=== PATIENT | female | born 1935 | race Caucasian/White ===

== ENCOUNTER 2016-06-16 14:04 | Emergency (ER) | payer MEDICARE ==
[2016-06-16] MEDS ORDERED: SODIUM CHLORIDE 0.9% 1,000 ML IV STA (15:02)
--- NOTE | 2016-06-16 15:07 | ED ---
General Adult HPI - General Chief complaint: Altered Mental Status Stated complaint: Confusion Time Seen by Provider: 06/16/16 14:45 Source: patient, RN notes reviewed Mode of arrival: wheelchair Limitations: no limitations - History of Present Illness Initial comments: Patient is a pleasant 80-year-old female presenting to the emergency department complaining of confusion. Onset was prior to arrival. Symptoms have somewhat improved. Patient was somewhat confused following a . Patient found herself walking around in the rain when she knew she should not have. Patient at one point thought she had a memory lapse however does not feel this is to be true anymore. Patient has paresthesias of the tongue. No isolated area of weakness. Patient has had similar symptoms previously associated with TIA. - Related Data Home Medications Medication Instructions Recorded Confirmed Acetaminophen Tab [Tylenol] 1,000 mg PO DAILY 04/09/14 06/16/16 Aspirin 81 mg PO DAILY 04/09/14 06/16/16 Glucosamine-Chondr 500-400Mg 2 tab PO DAILY 04/09/14 06/16/16 Levothyroxine Sodium [Synthroid] 50 mcg PO DAILY 04/09/14 06/16/16 Loratadine [Claritin] 10 mg PO DAILY PRN 04/09/14 06/16/16 amLODIPine BESYLATE/BENAZEPRIL 1 each PO BID 04/09/14 06/16/16 [Lotrel 5-20 mg Capsule] ALPRAZolam [Xanax] 0.25 mg PO DAILY PRN 06/16/16 06/16/16 Hydrochlorothiazide [Hydrodiuril] 25 mg PO DAILY PRN 06/16/16 06/16/16 Previous Rx's Medication Instructions Recorded Amoxicillin 500 mg PO Q8H #30 capsule 06/16/16 Allergies Allergy/AdvReac Type Severity Reaction Status Date / Time tetanus and diphtheria Allergy Unknown Verified 06/16/16 15:00 toxoids Childhood [tetanus & diphtheria toxoids] Review of Systems ROS Statement: Those systems with pertinent positive or pertinent negative responses have been documented in the HPI. ROS Other: All systems not noted in ROS Statement are negative. Constitutional: Denies: fever Eyes: Denies: eye pain ENT: Denies: ear pain Respiratory: Denies: cough Cardiovascular: Denies: chest pain Endocrine: Denies: fatigue Gastrointestinal: Denies: abdominal pain Genitourinary: Denies: dysuria Musculoskeletal: Denies: back pain Skin: Denies: rash Neurological: Reports: paresthesias (Tongue), confusion. Denies: headache, weakness, abnormal gait Psychiatric: Denies: anxiety Past Medical History Past Medical History: Chest Pain / Angina, CVA/TIA, GERD/Reflux, Hyperlipidemia , Hypertension Additional Past Medical History / Comment(s): 3 TIA's in the past,allergic rhinitis. History of Any Multi-Drug Resistant Organisms: None Reported Past Surgical History: Adenoidectomy, Hysterectomy, Joint Replacement, Tonsillectomy Additional Past Surgical History / Comment(s): Bilateral hip replacement,T+A, Partial Hysterectomy,Bilateral Ctaracts surgeries. Past Anesthesia/Blood Transfusion Reactions: No Reported Reaction Past Psychological History: No Psychological Hx Reported Smoking Status: Former smoker Past Alcohol Use History: Daily, Rare Past Drug Use History: None Reported - Past Family History Father Family Medical History: Myocardial Infarction ([place]) (Father at the age of 63 with [place].) Mother Family Medical History: Coronary Artery Disease (CAD) (mother at the age of 82 from CAD,and dementia.), Dementia Sister(s) Family Medical History: No Reported History (2 sisters no major medical problems.) Son(s) Family Medical History: No Reported History (she has 2 sons no major medical problem.) Daughter(s) Family Medical History: No Reported History (she has one daughter with no major medical problems.) General Exam Limitations: no limitations General appearance: alert, in no apparent distress Head exam: Present: atraumatic Eye exam: Present: normal appearance, PERRL, EOMI ENT exam: Present: normal oropharynx Neck exam: Present: normal inspection Respiratory exam: Present: normal lung sounds bilaterally Cardiovascular Exam: Present: regular rate, normal rhythm GI/Abdominal exam: Present: soft. Absent: tenderness Extremities exam: Present: normal inspection Neurological exam: Present: alert, oriented X3, CN II-XII intact. Absent: motor sensory deficit Expanded Patient oriented to: Present: person, place, time Speech: Present: fluid speech Cranial nerves: EOM's Intact: Normal, Facial Sensation: Normal Sensory exam: Upper Extremity Light Touch: Normal, Lower Extremity Light Touch: Normal Motor strength exam: RUE: 5, LUE: 5, RLE: 5, LLE: 5 Eye Response: (4) open spontaneously Motor Response: (6) obeys commands Verbal Response: (5) oriented Psychiatric exam: Present: normal affect, normal mood Skin exam: Absent: rash Course Vital Signs 06/16/16 06/16/16 06/16/16 14:06 14:30 14:45 Temperature 98.9 F Pulse Rate 88 70 96 Respiratory 18 18 20 Rate Blood Pressure 219/89 177/81 149/67 O2 Sat by Pulse 100 99 99 Oximetry 06/16/16 06/16/16 06/16/16 15:00 15:30 17:24 Temperature 97.7 F Pulse Rate 79 78 67 Respiratory 20 20 18 Rate Blood Pressure 184/84 150/65 169/72 O2 Sat by Pulse 98 97 97 Oximetry - Reevaluation(s) Reevaluation #1: 06/16/16 17:28 Patient reevaluated and symptom-free. Patient and son state patient did have a similar episode a few months ago with evaluation. Case was discussed in detail with Dr. Elise who is comfortable with discharge home and recommended close follow-up with Dr. Dr. Sterling. Aspirin daily which patient does already take. Patient does request medication for her sinuses. EKG Findings - EKG Comments: EKG Findings:: Normal sinus rhythm at 82. First-degree AV block with DC of 204. QRS 96. QT 378. QTC 441. Normal axis. Normal QRS. No acute ST change. Medical Decision Making - Lab Data Result diagrams: 06/16/16 15:30 06/16/16 15:30 Lab Results 06/16/16 06/16/16 06/16/16 Range/Units 15:30 15:30 15:30 WBC 11.7 H (3.8-10.6) k/uL RBC 5.34 (3.80-5.40) m/uL Hgb 14.9 (11.4-16.0) gm/dL Hct 44.5 (34.0-46.0) % MCV 83.2 (80.0-100.0) fL MCH 27.8 (25.0-35.0) pg MCHC 33.5 (31.0-37.0) g/dL RDW 12.9 (11.5-15.5) % Plt Count 300 (150-450) k/uL Neutrophils % 81 % Lymphocytes % 12 % Monocytes % 4 % Eosinophils % 1 % Basophils % 0 % Neutrophils # 9.5 H (1.3-7.7) k/uL Lymphocytes # 1.4 (1.0-4.8) k/uL Monocytes # 0.5 (0-1.0) k/uL Eosinophils # 0.1 (0-0.7) k/uL Basophils # 0.1 (0-0.2) k/uL PT (9.0-12.0) sec INR (<1.1) APTT (22.0-30.0) sec Sodium 145 (137-145) mmol/L Potassium 4.7 (3.5-5.1) mmol/L Chloride 108 H (98-107) mmol/L Carbon Dioxide 24 (22-30) mmol/L Anion Gap 13 mmol/L BUN 18 H (7-17) mg/dL Creatinine 0.60 (0.52-1.04) mg/dL Est GFR (MDRD) Af Amer >60 (>60 ml/min/1.73 sqM) Est GFR (MDRD) Non-Af >60 (>60 ml/min/1.73 sqM) Glucose 111 H (74-99) mg/dL Calcium 9.7 (8.4-10.2) mg/dL Total Bilirubin 0.4 (0.2-1.3) mg/dL AST 20 (14-36) U/L ALT 24 (9-52) U/L Alkaline Phosphatase 68 (38-126) U/L Total Creatine Kinase 50 (30-135) U/L CK-MB (CK-2) 1.1 (0.0-2.4) ng/mL CK-MB (CK-2) Rel Index 2.2 Troponin I <0.012 (0.000-0.034) ng/mL Total Protein 7.3 (6.3-8.2) g/dL Albumin 4.4 (3.5-5.0) g/dL 06/16/16 Range/Units 15:30 WBC (3.8-10.6) k/uL RBC (3.80-5.40) m/uL Hgb (11.4-16.0) gm/dL Hct (34.0-46.0) % MCV (80.0-100.0) fL MCH (25.0-35.0) pg MCHC (31.0-37.0) g/dL RDW (11.5-15.5) % Plt Count (150-450) k/uL Neutrophils % % Lymphocytes % % Monocytes % % Eosinophils % % Basophils % % Neutrophils # (1.3-7.7) k/uL Lymphocytes # (1.0-4.8) k/uL Monocytes # (0-1.0) k/uL Eosinophils # (0-0.7) k/uL Basophils # (0-0.2) k/uL PT 10.7 (9.0-12.0) sec INR 1.1 (<1.1) APTT 22.0 (22.0-30.0) sec Sodium (137-145) mmol/L Potassium (3.5-5.1) mmol/L Chloride (98-107) mmol/L Carbon Dioxide (22-30) mmol/L Anion Gap mmol/L BUN (7-17) mg/dL Creatinine (0.52-1.04) mg/dL Est GFR (MDRD) Af Amer (>60 ml/min/1.73 sqM) Est GFR (MDRD) Non-Af (>60 ml/min/1.73 sqM) Glucose (74-99) mg/dL Calcium (8.4-10.2) mg/dL Total Bilirubin (0.2-1.3) mg/dL AST (14-36) U/L ALT (9-52) U/L Alkaline Phosphatase (38-126) U/L Total Creatine Kinase (30-135) U/L CK-MB (CK-2) (0.0-2.4) ng/mL CK-MB (CK-2) Rel Index Troponin I (0.000-0.034) ng/mL Total Protein (6.3-8.2) g/dL Albumin (3.5-5.0) g/dL Disposition Clinical Impression: Confusion, Confusion, Sinusitis Disposition: HOME SELF-CARE Condition: Stable Instructions: Altered Mental Status (ED) Additional Instructions: Continue aspirin daily. Follow up with primary care physician this week. Return for confusion, weakness, walking problems, worsening symptoms or other concerns Prescriptions: Amoxicillin 500 mg PO Q8H #30 capsule Referrals: Lucian Sterling MD [Primary Care Provider] - 1-2 days
--- NOTE | 2016-06-16 15:27 | CT ---
EXAMINATION TYPE: CT brain wo con DATE OF EXAM: 06/16/2016 3:19 PM COMPARISON: NONE INDICATION: Weakness and slurred speech today. Hx of TIA. DLP: 1177 mGycm, Automated exposure control for dose reduction was used. CONTRAST: None CT of the brain is performed utilizing 3 mm thick sections through the posterior fossa and 3 mm thick sections through the remaining calvarium. Study is performed within 24 hours of arrival to the hosp ital. No abnormal hyperdensity is present to suggest an acute intracranial hemorrhage. No mass lesion is evident. No acute infarcts are evident. There is mild periventricular white matter hypodensity, likely on the basis of chronic white matter ischemic changes. Findings are stable from November 2014. Ventricles and sulci are appropriate for the patient age. Paranasal sinuses and mastoid air cells within the [id number] are clear. IMPRESSIONS: 1. Periventricular white matter ischemic changes with some mild age-related atrophy. 2. No acute intracranial process. MRI may be more sensitive for early changes.
--- NOTE | 2016-06-16 15:33 | XR ---
EXAMINATION TYPE: XR chest 2V DATE OF EXAM: 06/16/2016 3:27 PM COMPARISON: 04/08/2014 INDICATION: Chest pain TECHNIQUE: Single frontal view of the chest is obtained. FINDINGS: The heart size is normal. The pulmonary vasculature is normal. The lungs are clear. EKG leads overlie the chest. IMPRESSION: 1. No acute pulmonary process.
[2016-06-16 16:04] LABS: Basophils # (A) 0.1 k/uL (0-0.2); Basophils % (A) 0 %; CH 26.9; CHCM 32.4; Eosinophils # (A) 0.1 k/uL (0-0.7); Eosinophils % (A) 1 %; HCT 44.5 % (34.0-46.0); HGB 14.9 gm/dL (11.4-16.0); Luc # (Auto) 0.13; Luc % (Auto) 1; Lymphocytes # (A) 1.4 k/uL (1.0-4.8); Lymphocytes % (A) 12 %; MCH 27.8 pg (25.0-35.0); MCHC 33.5 g/dL (31.0-37.0); MCV 83.2 fL (80.0-100.0); Mean Platelet Volume 7.7; Monocytes # (A) 0.5 k/uL (0-1.0); Monocytes % (A) 4 %; Neutrophils # (A) 9.5 k/uL (1.3-7.7); Neutrophils % (A) 81 %; RBC 5.34 m/uL (3.80-5.40); RDW 12.9 % (11.5-15.5); WBC 11.7 k/uL (3.8-10.6)
[2016-06-16 16:17] LABS: ALT 24 U/L (9-52); AST 20 U/L (14-36); Alkaline Phosphatase 68 U/L (38-126); Anion Gap 13 mmol/L; Blood Urea Nitrogen 18 mg/dL (7-17); Calcium 9.7 mg/dL (8.4-10.2); Carbon Dioxide 24 mmol/L (22-30); Chloride 108 mmol/L (98-107); Glucose 111 mg/dL (74-99); Non-African American GFR(MDRD) >60 (>60 ml/min/1.73 sqM); Potassium 4.7 mmol/L (3.5-5.1); Sodium 145 mmol/L (137-145); Total Bilirubin 0.4 mg/dL (0.2-1.3); Total Protein 7.3 g/dL (6.3-8.2)
[2016-06-16 16:19] LABS: INR 1.1 (<1.1); Prothrombin Time 10.7 sec (9.0-12.0)
[2016-06-16 16:22] LABS: Creatine Kinase 50 U/L (30-135)
[2016-06-16 16:36] LABS: Creatine Kinase MB 1.1 ng/mL (0.0-2.4); Troponin I <0.012 ng/mL (0.000-0.034)
[2016-06-16 17:26] VITALS: RESP 18
[2016-06-16 17:42] VITALS: BP 170/72; PULSE 79; TEMP 97.8
== END 2016-06-16 17:45 | disposition home or self-care (01) ==
LOC: EC 14:04
DX: R41.0 Disorientation, unspecified (principal); J32.9 Chronic sinusitis, unspecified; I10 Essential (primary) hypertension; Z87.891 Personal history of nicotine dependence; Z79.82 Long term (current) use of aspirin; Z88.7 Allergy status to serum and vaccine; Z79.899 Other long term (current) drug therapy
CPT/HCPCS: 36415; 70450; 71020; 80053; 82550; 82553; 84484; 85025; 85610; 85730; 93005; 96360; 96361; 99285

== ENCOUNTER 2016-11-02 17:51 | Emergency (ER) | payer MEDICARE ==
--- NOTE | 2016-11-02 18:29 | ED ---
General Adult HPI - General Chief complaint: Dizziness Stated complaint: Fall Time Seen by Provider: 11/02/16 18:02 Source: patient, RN notes reviewed, old records reviewed Mode of arrival: wheelchair Limitations: no limitations - History of Present Illness Initial comments: This is an 81-year-old female here for evaluation of weakness and near-syncopal event. Patient was doing some physical activity is beyond her means. She was some yardwork today was playing opposing the ground for a birdcage leak and fell backwards. Hit her back hit her right shoulder and her head. Patient denies loss of consciousness. Denies any chest pain headache shortness of breath or bowel. This time. - Related Data Home Medications Medication Instructions Recorded Confirmed Acetaminophen Tab [Tylenol] 1,000 mg PO QAM 04/09/14 11/02/16 Aspirin 81 mg PO DAILY 04/09/14 11/02/16 Levothyroxine Sodium [Synthroid] 50 mcg PO DAILY 04/09/14 11/02/16 Loratadine [Claritin] 10 mg PO DAILY 04/09/14 11/02/16 amLODIPine BESYLATE/BENAZEPRIL 1 cap PO DAILY 04/09/14 11/02/16 [Lotrel 5-20 mg Capsule] ALPRAZolam [Xanax] 0.25 mg PO DAILY PRN 06/16/16 11/02/16 Glucosamine/Chondr Gonzalez A Sod [Osteo 1 tab PO BID 11/02/16 11/02/16 Bi-Flex Caplet] Allergies Allergy/AdvReac Type Severity Reaction Status Date / Time tetanus and diphtheria Allergy Unknown Verified 11/02/16 18:32 toxoids Childhood [tetanus & diphtheria toxoids] Review of Systems ROS Statement: Those systems with pertinent positive or pertinent negative responses have been documented in the HPI. ROS Other: All systems not noted in ROS Statement are negative. Past Medical History Past Medical History: Chest Pain / Angina, CVA/TIA, GERD/Reflux, Hyperlipidemia , Hypertension Additional Past Medical History / Comment(s): 3 TIA's in the past,allergic rhinitis. History of Any Multi-Drug Resistant Organisms: None Reported Past Surgical History: Adenoidectomy, Hysterectomy, Joint Replacement, Tonsillectomy Additional Past Surgical History / Comment(s): Bilateral hip replacement,T+A, Partial Hysterectomy,Bilateral Ctaracts surgeries. Past Anesthesia/Blood Transfusion Reactions: No Reported Reaction Past Psychological History: Anxiety Smoking Status: Former smoker Past Alcohol Use History: Occasional Past Drug Use History: None Reported - Past Family History Father Family Medical History: Myocardial Infarction ([place]) (Father at the age of 63 with [place].) Mother Family Medical History: Coronary Artery Disease (CAD) (mother at the age of 82 from CAD,and dementia.), Dementia Sister(s) Family Medical History: No Reported History (2 sisters no major medical problems.) Son(s) Family Medical History: No Reported History (she has 2 sons no major medical problem.) Daughter(s) Family Medical History: No Reported History (she has one daughter with no major medical problems.) General Exam Limitations: no limitations General appearance: alert, in no apparent distress Head exam: Present: atraumatic, normocephalic, normal inspection Eye exam: Present: normal appearance, PERRL, EOMI. Absent: scleral icterus, conjunctival injection, periorbital swelling ENT exam: Present: normal exam, mucous membranes moist Neck exam: Present: normal inspection. Absent: tenderness, meningismus, lymphadenopathy Respiratory exam: Present: normal lung sounds bilaterally. Absent: respiratory distress, wheezes, rales, rhonchi, stridor Cardiovascular Exam: Present: regular rate, normal rhythm, normal heart sounds. Absent: systolic murmur, diastolic murmur, rubs, gallop, clicks GI/Abdominal exam: Present: soft, normal bowel sounds. Absent: distended, tenderness, guarding, rebound, rigid Extremities exam: Present: normal inspection, full ROM, normal capillary refill. Absent: tenderness, pedal edema, joint swelling, calf tenderness Back exam: Present: normal inspection Neurological exam: Present: alert, oriented X3, CN II-XII intact Psychiatric exam: Present: normal affect, normal mood Skin exam: Present: warm, dry, intact, normal color. Absent: rash Course Vital Signs 11/02/16 11/02/16 17:52 19:55 Temperature 98.2 F 98.4 F Pulse Rate 71 69 Respiratory 20 16 Rate Blood Pressure 224/91 204/82 O2 Sat by Pulse 96 95 Oximetry - Reevaluation(s) Reevaluation #1: 11/02/16 20:42 Patient states she feels mildly leaper is improved with IV fluids EKG Findings - EKG Comments: EKG Findings:: EKG shows sinus rhythm rate of 76, CT 196, QRS 90, QTC C4 36 Medical Decision Making - Medical Decision Making 81 female will treat for UTI, encouraged fluid intake and rest - Lab Data Result diagrams: 11/02/16 18:10 11/02/16 18:10 Lab Results 11/02/16 11/02/16 11/02/16 Range/Units 18:10 18:10 18:10 WBC 9.3 (3.8-10.6) k/uL RBC 5.23 (3.80-5.40) m/uL Hgb 14.7 (11.4-16.0) gm/dL Hct 43.0 (34.0-46.0) % MCV 82.2 (80.0-100.0) fL MCH 28.1 (25.0-35.0) pg MCHC 34.2 (31.0-37.0) g/dL RDW 13.3 (11.5-15.5) % Plt Count 318 (150-450) k/uL Neutrophils % 64 % Lymphocytes % 24 % Monocytes % 5 % Eosinophils % 3 % Basophils % 1 % Neutrophils # 5.9 (1.3-7.7) k/uL Lymphocytes # 2.2 (1.0-4.8) k/uL Monocytes # 0.5 (0-1.0) k/uL Eosinophils # 0.3 (0-0.7) k/uL Basophils # 0.1 (0-0.2) k/uL PT (9.0-12.0) sec INR (<1.2) APTT (22.0-30.0) sec Sodium 142 (137-145) mmol/L Potassium 4.1 (3.5-5.1) mmol/L Chloride 108 H (98-107) mmol/L Carbon Dioxide 20 L (22-30) mmol/L Anion Gap 14 mmol/L BUN 15 (7-17) mg/dL Creatinine 0.60 (0.52-1.04) mg/dL Est GFR (MDRD) Af Amer >60 (>60 ml/min/1.73 sqM) Est GFR (MDRD) Non-Af >60 (>60 ml/min/1.73 sqM) Glucose 152 H (74-99) mg/dL Calcium 9.8 (8.4-10.2) mg/dL Phosphorus 3.8 (2.5-4.5) mg/dL Magnesium 1.7 (1.6-2.3) mg/dL Total Bilirubin 0.4 (0.2-1.3) mg/dL AST 23 (14-36) U/L ALT 30 (9-52) U/L Alkaline Phosphatase 68 (38-126) U/L Total Creatine Kinase 77 (30-135) U/L CK-MB (CK-2) 1.6 (0.0-2.4) ng/mL CK-MB (CK-2) Rel Index 2.1 Troponin I <0.012 (0.000-0.034) ng/mL Total Protein 7.3 (6.3-8.2) g/dL Albumin 4.6 (3.5-5.0) g/dL Urine Color Urine Appearance (Clear) Urine pH (5.0-8.0) Ur Specific [place] (1.001-1.035) Urine Protein (Negative) Urine Glucose (UA) (Negative) Urine Ketones (Negative) Urine Blood (Negative) Urine Nitrite (Negative) Urine Bilirubin (Negative) Urine Urobilinogen (<2.0) mg/dL Ur Leukocyte Esterase (Negative) Urine WBC (0-5) /hpf Ur Squamous Epith Cells (0-4) /hpf Urine Bacteria (None) /hpf Urine Mucus (None) /hpf 11/02/16 11/02/16 Range/Units 18:10 18:10 WBC (3.8-10.6) k/uL RBC (3.80-5.40) m/uL Hgb (11.4-16.0) gm/dL Hct (34.0-46.0) % MCV (80.0-100.0) fL MCH (25.0-35.0) pg MCHC (31.0-37.0) g/dL RDW (11.5-15.5) % Plt Count (150-450) k/uL Neutrophils % % Lymphocytes % % Monocytes % % Eosinophils % % Basophils % % Neutrophils # (1.3-7.7) k/uL Lymphocytes # (1.0-4.8) k/uL Monocytes # (0-1.0) k/uL Eosinophils # (0-0.7) k/uL Basophils # (0-0.2) k/uL PT 10.3 (9.0-12.0) sec INR 1.0 (<1.2) APTT 21.7 L (22.0-30.0) sec Sodium (137-145) mmol/L Potassium (3.5-5.1) mmol/L Chloride (98-107) mmol/L Carbon Dioxide (22-30) mmol/L Anion Gap mmol/L BUN (7-17) mg/dL Creatinine (0.52-1.04) mg/dL Est GFR (MDRD) Af Amer (>60 ml/min/1.73 sqM) Est GFR (MDRD) Non-Af (>60 ml/min/1.73 sqM) Glucose (74-99) mg/dL Calcium (8.4-10.2) mg/dL Phosphorus (2.5-4.5) mg/dL Magnesium (1.6-2.3) mg/dL Total Bilirubin (0.2-1.3) mg/dL AST (14-36) U/L ALT (9-52) U/L Alkaline Phosphatase (38-126) U/L Total Creatine Kinase (30-135) U/L CK-MB (CK-2) (0.0-2.4) ng/mL CK-MB (CK-2) Rel Index Troponin I (0.000-0.034) ng/mL Total Protein (6.3-8.2) g/dL Albumin (3.5-5.0) g/dL Urine Color Yellow Urine Appearance Clear (Clear) Urine pH 5.5 (5.0-8.0) Ur Specific [place] 1.009 (1.001-1.035) Urine Protein Negative (Negative) Urine Glucose (UA) Negative (Negative) Urine Ketones Negative (Negative) Urine Blood Negative (Negative) Urine Nitrite Positive H (Negative) Urine Bilirubin Negative (Negative) Urine Urobilinogen <2.0 (<2.0) mg/dL Ur Leukocyte Esterase Negative (Negative) Urine WBC 1 (0-5) /hpf Ur Squamous Epith Cells 2 (0-4) /hpf Urine Bacteria Occasional H (None) /hpf Urine Mucus Rare H (None) /hpf - Radiology Data Radiology results: report reviewed (Chest x-ray x-ray right shoulder negative for traumatic injury CT brain negative for acute disease), image reviewed Disposition Clinical Impression: Dehydration, Weakness, Fall Disposition: HOME SELF-CARE Condition: Good Instructions: Dizziness (ED) Referrals: Lucian Sterling MD [Primary Care Provider] - 1-2 days
[2016-11-02 18:30] LABS: Basophils # (A) 0.1 k/uL (0-0.2); Basophils % (A) 1 %; CH 27.6; CHCM 33.7; Eosinophils # (A) 0.3 k/uL (0-0.7); Eosinophils % (A) 3 %; HDW 2.62; HGB 14.7 gm/dL (11.4-16.0); Luc # (Auto) 0.27; Luc % (Auto) 3; Lymphocytes # (A) 2.2 k/uL (1.0-4.8); Lymphocytes % (A) 24 %; MCH 28.1 pg (25.0-35.0); MCHC 34.2 g/dL (31.0-37.0); MCV 82.2 fL (80.0-100.0); Mean Platelet Volume 7.5; Monocytes # (A) 0.5 k/uL (0-1.0); Monocytes % (A) 5 %; Neutrophils # (A) 5.9 k/uL (1.3-7.7); Neutrophils % (A) 64 %; RBC 5.23 m/uL (3.80-5.40); RDW 13.3 % (11.5-15.5); WBC 9.3 k/uL (3.8-10.6)
[2016-11-02 18:42] LABS: Appearance,Urine Clear (Clear); Bacteria,Urine Occasional /hpf; Bilirubin,Urine Negative (Negative); Glucose,Urine (UA) Negative (Negative); Ketones,Urine Negative (Negative); Leukocyte Esterase,Urine Negative (Negative); Mucus,Urine Rare /hpf; Nitrite,Urine Positive (Negative); PH, Urine 5.5 (5.0-8.0); Particle Count 30978; Protein,Urine Negative (Negative); Specific Gravity,Urine 1.009 (1.001-1.035); Squamous Epithelial Cell,Urine 2 /hpf (0-4); UA Billing (MACRO vs. MICRO) MICRO; Urobilinogen,Urine <2.0 mg/dL (<2.0); WBC,Urine 1 /hpf (0-5)
[2016-11-02 18:45] LABS: Partial Thromboplastin Time 21.7 sec (22.0-30.0); Prothrombin Time 10.3 sec (9.0-12.0)
[2016-11-02 18:57] LABS: ALT 30 U/L (9-52); AST 23 U/L (14-36); Alkaline Phosphatase 68 U/L (38-126); Anion Gap 14 mmol/L; Blood Urea Nitrogen 15 mg/dL (7-17); Calcium 9.8 mg/dL (8.4-10.2); Carbon Dioxide 20 mmol/L (22-30); Chloride 108 mmol/L (98-107); Creatine Kinase 77 U/L (30-135); Glucose 152 mg/dL (74-99); Magnesium 1.7 mg/dL (1.6-2.3); Non-African American GFR(MDRD) >60 (>60 ml/min/1.73 sqM); Phosphorous 3.8 mg/dL (2.5-4.5); Potassium 4.1 mmol/L (3.5-5.1); Sodium 142 mmol/L (137-145); Total Bilirubin 0.4 mg/dL (0.2-1.3); Total Protein 7.3 g/dL (6.3-8.2)
[2016-11-02 19:08] LABS: Creatine Kinase MB 1.6 ng/mL (0.0-2.4); Troponin I <0.012 ng/mL (0.000-0.034)
--- NOTE | 2016-11-02 19:08 | XR ---
EXAMINATION TYPE: XR chest 2V DATE OF EXAM: 11/02/2016 COMPARISON: NONE HISTORY: Weakness TECHNIQUE: Frontal and lateral views of the chest are obtained. FINDINGS: Chronic right hemidiaphragm elevation is noted. There is no focal air space opacity, pleur al effusion, or pneumothorax seen. The cardiac silhouette size is within normal limits. The osseou s structures are intact. Degenerative changes are seen of the thoracic spine and glenohumeral joints as well as acromioclavicu lar joints, right greater than left. Right humeral head is high riding abutting the acromioclavicular joint with acetabulization of the acromioclavicular joint compatible with underlying complete rotato r cuff tear. IMPRESSION: 1. No acute cardiopulmonary process. 2. Findings indicative of chronic complete right rotator cuff tear. 3. Chronic right hemidiaphragm elevation.
--- NOTE | 2016-11-02 19:14 | XR ---
EXAMINATION TYPE: XR shoulder complete RT DATE OF EXAM: 11/02/2016 CLINICAL HISTORY: Right shoulder pain TECHNIQUE: Three views of the right shoulder are obtained. COMPARISON: None. FINDINGS: There is extensive right glenohumeral arthropathy as well as acromioclavicular arthropathy with evidence of chronic complete rotator cuff tear displayed as acetabulization of the acromioclavic ular joint and apposition of the undersurface of the acromion with the humeral head. Large osteophyte projects into the axillary recess. No evidence of acute fracture or dislocation. IMPRESSION: 1. No evidence of acute fracture or dislocation. 2. Findings indicative of chronic complete rotator cuff tear and severe arthropathy of the glenohumer al joint and acromio clavicular joint.
[2016-11-02] MEDS ORDERED: KETOROLAC 30 MG/ML 1 ML VIAL IVP STA (19:30)
[2016-11-02] MEDS ORDERED: SODIUM CHLORIDE 0.9% 500 ML IV STA (19:30)
[2016-11-02] MEDS ORDERED: SODIUM CHLORIDE 0.9% 1,000 ML IV STA ×2 (19:30)
[2016-11-02] MEDS ORDERED: ONDANSETRON 4 MG/2 ML VIAL IVP STA (19:30)
[2016-11-02 19:57] VITALS: RESP 16
--- NOTE | 2016-11-02 21:08 | CT ---
EXAMINATION TYPE: CT brain wo con DATE OF EXAM: 11/02/2016 COMPARISON: NONE HISTORY: Dizziness, weakness and hypertension CT DLP: 1090.4 mGycm. Automated Exposure Control for Dose Reduction was Utilized. TECHNIQUE: CT scan of the head is performed without contrast. FINDINGS: There is no acute intracranial hemorrhage or midline shift identified. There is diffuse v entricular and sulcal prominence consistent with diffuse age-related cerebral atrophy. There is low- attenuation in the periventricular white matter consistent with chronic small vessel ischemic change. The globes are intact and the visualized sinuses are clear. No extra-axial fluid collection is ap preciated. IMPRESSION: No acute intracranial hemorrhage or midline shift. There is diffuse age-related cerebra l atrophy and chronic small vessel ischemic change noted.
[2016-11-02] MEDS ORDERED: LABETALOL 5 MG/ML VIAL MDV IVP STA (21:13)
[2016-11-02 22:09] VITALS: BP 153/67; PULSE 78; TEMP 97.9
== END 2016-11-02 22:09 | disposition home or self-care (01) ==
LOC: EC 17:51
DX: E86.0 Dehydration (principal); R53.1 Weakness; K21.9 Gastro-esophageal reflux disease without esophagitis; E78.5 Hyperlipidemia, unspecified; I10 Essential (primary) hypertension; F41.9 Anxiety disorder, unspecified; Z87.891 Personal history of nicotine dependence; Z86.73 Personal history of transient ischemic attack (TIA), and cerebral infarction without residual deficits; Z79.82 Long term (current) use of aspirin; Z79.899 Other long term (current) drug therapy; Z88.7 Allergy status to serum and vaccine; W19.XXXA Unspecified fall, initial encounter
CPT/HCPCS: 36415; 93005; 80053; 82550; 82553; 83735; 84100; 84484; 85025; 85610; 85730; 81001; 71020; 73030; 70450; 99285; 96365; 96366; 96375 ×3; J2405; J0696; J1885

== ENCOUNTER → 2016-11-24 | Outpatient (CLI) | payer MEDICARE ==
--- NOTE | 2016-11-24 15:24 | ECHOF ---
Referral Reason:I34.0 nonrheumatic mitral insuff MEASUREMENTS -------- HEIGHT: 162.6 cm WEIGHT: 68.0 kg BP: IVSd: 1.5 cm (0.6 - 1.1) LVIDd: 3.6 cm (3.9 - 5.3) LVPWd: 1.6 cm (0.6 - 1.1) IVSs: 2.1 cm LVIDs: 1.9 cm LVPWs: 2.0 cm LAESV Index (A-L): 42.28 ml/m Ao Diam: 3.2 cm (2.0 - 3.7) AV Cusp: 1.8 cm (1.5 - 2.6) LA Diam: 3.4 cm (2.7 - 3.8) MV EXCURSION: 16.312 mm (> 18.000) MV EF SLOPE: 24 mm/s (70 - 150) EPSS: 0.7 cm MV E Delon: 0.70 m/s MV DecT: 349 ms MV A Delon: 1.21 m/s MV E/A Ratio: 0.57 AR PHT: 300 ms RAP: 5.00 mmHg RVSP: 28.73 mmHg FINDINGS -------- Sinus rhythm. This was a technically good study. The left ventricular size is normal. There is moderate concentric left ventricular hypertrophy. Overall left ventricular systolic function is normal with, an EF between 55 - 60 %. The right ventricle is normal in size and function. LA is severely dilated >40 ml/m2 The right atrium is normal in size. Aortic valve is trileaflet and is moderately thickened. There is mild aortic regurgitation. The mitral valve leaflets are mildly thickened. Sslo-vf-diwyyxhe mitral regurgitation is present. Mild tricuspid regurgitation present. The right ventricular systolic pressure, as measured by Doppler, is 28.73mmHg. Pulmonic valve appears structurally normal. The aortic root size is normal. The pericardium is normal. CONCLUSIONS -------- 1. Sinus rhythm. 2. There is mild aortic regurgitation. 3. The mitral valve leaflets are mildly thickened. 4. Cdfz-nz-ehhsxdoc mitral regurgitation is present. 5. Mild tricuspid regurgitation present. 6. The right ventricular systolic pressure, as measured by Doppler, is 28.73mmHg. 7. Pulmonic valve appears structurally normal. 8. The aortic root size is normal. 9. The pericardium is normal. 10. This was a technically good study. 11. The left ventricular size is normal. 12. There is moderate concentric left ventricular hypertrophy. 13. Overall left ventricular systolic function is normal with, an EF between 55 - 60 %. 14. The right ventricle is normal in size and function. 15. LA is severely dilated >40 ml/m2 16. The right atrium is normal in size. 17. Aortic valve is trileaflet and is moderately thickened. HVAC OPERATIONS TECHNICIAN: Catrina Gomez RDCS
--- NOTE | 2016-11-24 15:28 | US ---
EXAMINATION TYPE: US carotid duplex BILAT DATE OF EXAM: 11/24/2016 COMPARISON: NONE CLINICAL HISTORY: I65.21 Stenosis or rt carotid artery. Dizziness. HTN. Hx of TIA x 3-- Last one wa s a few years ago per patient. EXAM MEASUREMENTS: RIGHT: Peak Systolic Velocity (PSV) cm/sec ----- Right CCA: 78.9 ----- Right ICA: 70.4 ----- Right ECA: 119.0 ICA/CCA ratio: 0.9 RIGHT: End Diastole cm/sec ----- Right CCA: 18.3 ----- Right ICA: 21.9 ----- Right ECA: 9.1 LEFT: Peak Systolic Velocity (PSV) cm/sec ----- Left CCA: 80.0 ----- Left ICA: 135.9 ----- Left ECA: 110.0 ICA/CCA ratio: 1.7 LEFT: End Diastole cm/sec ----- Left CCA: 17.1 ----- Left ICA: 35.3 ----- Left ECA: 7.6 VERTEBRALS (direction of flow): Right Vertebral: Antegrade Left Vertebral: Antegrade Rhythm: Arrhythmia Bilateral wall thickening. Plaque seen in mid left CCA and anterior left bulb. Elevated mid ICA CCA v elocity, but could be due to tortuous vessel. Elevated left bulb velocity. No significant stenosis seen. IMPRESSION: No hemodynamic significant stenosis of the proximal intracranial carotid arteries bilate rally by Doppler criteria, an indirect measurement of carotid stenosis. Mild systolic velocity elev ation in the internal carotid artery on the left felt likely to be due to tortuosity.
== END | disposition home or self-care (01) ==
LOC: RADUSMAIN 12:14
PROVIDERS: ATTEND Internal Medicine Geriatric Medicine
DX: I08.3 Combined rheumatic disorders of mitral, aortic and tricuspid valves (principal); I77.89 Other specified disorders of arteries and arterioles; I65.21 Occlusion and stenosis of right carotid artery
CPT/HCPCS: 93306; 93880

== ENCOUNTER 2017-05-18 09:40 | Observation (INO) | payer MEDICARE ==
[2017-05-18 10:13] LABS: Glucose,Whole Blood 195 mg/dL (75-99)
[2017-05-18 10:23] LABS: Basophils # (A) 0.1 k/uL (0-0.2); Basophils % (A) 1 %; Eosinophils # (A) 0.5 k/uL (0-0.7); Eosinophils % (A) 4 %; HCT 43.2 % (34.0-46.0); HGB 14.2 gm/dL (11.4-16.0); Lymphocytes # (A) 1.6 k/uL (1.0-4.8); Lymphocytes % (A) 14 %; MCHC 32.9 g/dL (31.0-37.0); MCV 81.9 fL (80.0-100.0); Mean Platelet Volume 8.1; Monocytes # (A) 0.3 k/uL (0-1.0); Monocytes % (A) 3 %; Neutrophils # (A) 8.9 k/uL (1.3-7.7); Neutrophils % (A) 78 %; Platelet Count 281 k/uL (150-450); RBC 5.28 m/uL (3.80-5.40); RDW 13.4 % (11.5-15.5); WBC 11.4 k/uL (3.8-10.6)
[2017-05-18 10:29] LABS: Appearance,Urine Clear (Clear); Bilirubin,Urine Negative (Negative); Blood,Urine Negative (Negative); Color,Urine Colorless; Glucose,Urine (UA) Negative (Negative); Ketones,Urine Negative (Negative); Leukocyte Esterase,Urine Negative (Negative); Nitrite,Urine Negative (Negative); PH, Urine 5.5 (5.0-8.0); Protein,Urine Negative (Negative); Specific Gravity,Urine 1.004 (1.001-1.035); Urobilinogen,Urine <2.0 mg/dL (<2.0)
[2017-05-18 10:34] LABS: Partial Thromboplastin Time 21.9 sec (22.0-30.0); Prothrombin Time 10.1 sec (9.0-12.0)
--- NOTE | 2017-05-18 10:42 | CT ---
EXAMINATION TYPE: CT brain wo con DATE OF EXAM: 05/18/2017 COMPARISON: 11/02/2016 HISTORY: confusion and headache. CT DLP: 1036 mGycm Automated exposure control for dose reduction was used. FINDINGS: There is no acute intracranial hemorrhage or midline shift identified. There is diffuse ventricular a nd sulcal prominence consistent with diffuse age-related cerebral atrophy. There is low-attenuation i n the periventricular white matter consistent with chronic small vessel ischemic change. Changes of chronic sinusitis with nasal septal deviation noted. IMPRESSION: NO ACUTE HEMORRHAGE OR MASS EFFECT. DEGENERATIVE CHANGE AND NONSPECIFIC WHITE MATTER CHANGES MOST TYP ICAL REMOTE MICROVASCULAR ISCHEMIA.
--- NOTE | 2017-05-18 10:44 | XR ---
EXAMINATION TYPE: XR chest 2V DATE OF EXAM: 05/18/2017 COMPARISON: 11/02/2016 TECHNIQUE: PA and lateral views submitted. HISTORY: Syncope FINDINGS: The lungs are clear and there is no pneumothorax, pleural effusion, or focal pneumonia. Arthropathy of the shoulders. Atherosclerotic change aorta. Degenerative change of the spine. There is a promine nt soft tissue density resulting in lateral deviation the trachea IMPRESSION: 1. No acute process. 2. There is deviation the trachea from right to left with a prominent soft tissue density could been the basis of a large thyroid. Mediastinal mass not excluded.
[2017-05-18 10:51] LABS: ALT 22 U/L (9-52); AST 20 U/L (14-36); Albumin 4.4 g/dL (3.5-5.0); Alkaline Phosphatase 64 U/L (38-126); Anion Gap 14 mmol/L; Blood Urea Nitrogen 18 mg/dL (7-17); Carbon Dioxide 21 mmol/L (22-30); Chloride 106 mmol/L (98-107); Glucose 211 mg/dL (74-99); Magnesium 1.6 mg/dL (1.6-2.3); Potassium 4.2 mmol/L (3.5-5.1); Sodium 141 mmol/L (137-145); Total Bilirubin 0.4 mg/dL (0.2-1.3); Total Protein 7.4 g/dL (6.3-8.2)
[2017-05-18] MEDS ORDERED: ONDANSETRON 4 MG/2 ML VIAL IVP PRN (11:32)
[2017-05-18] MEDS ORDERED: NALOXONE 0.4 MG/ML 1 ML VIAL IV PRN (11:32)
--- NOTE | 2017-05-18 11:37 | ED ---
Neuro HPI - General Chief Complaint: Neuro Symptoms/Deficit Stated Complaint: POSS CVA Time Seen by Provider: 05/18/17 09:53 Source: patient Mode of arrival: wheelchair Limitations: no limitations - History of Present Illness Is the patient presenting with stroke symptoms?: No Initial Comments: Patient complains of a syncopal episode several hours ago. She also has a throbbing headache. Nothing makes her symptoms better or worse. She has taken no medication for the symptoms. She denies any fever or chills. She has no chest pain or pressure. She currently has no nausea or vomiting or diaphoresis. She does not feel lightheaded. She has no change in vision or hearing. She has no neck pain or stiffness. She has no pain or swelling in the arms or legs. She was not doing anything when she experienced the syncopal episode. - Related Data Home Medications: Home Medications Medication Instructions Recorded Confirmed Aspirin 162 mg PO DAILY 04/09/14 05/18/17 Levothyroxine Sodium [Synthroid] 50 mcg PO DAILY 04/09/14 05/18/17 amLODIPine BESYLATE/BENAZEPRIL 1 cap PO BID 04/09/14 05/18/17 [Lotrel 5-20 mg Capsule] ALPRAZolam [Xanax] 0.125 mg PO BID PRN 06/16/16 05/18/17 Acetaminophen [Tylenol 8 Hour] 1,300 mg PO Q6H PRN 05/18/17 05/18/17 Atorvastatin [Lipitor] 10 mg PO HS 05/18/17 05/18/17 Glucosamine Sulfate 1,000 mg PO DAILY 05/18/17 05/18/17 Allergies/Adverse Reactions: Allergies Allergy/AdvReac Type Severity Reaction Status Date / Time tetanus and diphtheria Allergy Unknown Verified 05/18/17 10:25 toxoids Childhood [tetanus & diphtheria toxoids] Review of Systems ROS Statement: Those systems with pertinent positive or pertinent negative responses have been documented in the HPI. ROS Other: All systems not noted in ROS Statement are negative. General Exam Limitations: no limitations General appearance: alert, in no apparent distress Head exam: Present: atraumatic, normocephalic, normal inspection Eye exam: Present: normal appearance, PERRL, EOMI. Absent: scleral icterus, conjunctival injection, periorbital swelling ENT exam: Present: normal exam, mucous membranes moist Neck exam: Present: normal inspection. Absent: tenderness, meningismus, lymphadenopathy Respiratory exam: Present: normal lung sounds bilaterally. Absent: respiratory distress, wheezes, rales, rhonchi, stridor Cardiovascular Exam: Present: regular rate, normal rhythm, normal heart sounds. Absent: systolic murmur, diastolic murmur, rubs, gallop, clicks GI/Abdominal exam: Present: soft, normal bowel sounds. Absent: distended, tenderness, guarding, rebound, rigid Extremities exam: Present: normal inspection, full ROM, normal capillary refill. Absent: tenderness, pedal edema, joint swelling, calf tenderness Back exam: Present: normal inspection Neurological exam: Present: alert, oriented X3, CN II-XII intact Psychiatric exam: Present: normal affect, normal mood Skin exam: Present: warm, dry, intact, normal color. Absent: rash Stroke MDM - Lab Data Result diagrams: 05/18/17 10:06 05/18/17 10:06 Lab Results 05/18/17 05/18/17 05/18/17 Range/Units 10:00 10:02 10:06 WBC 11.4 H (3.8-10.6) k/uL RBC 5.28 (3.80-5.40) m/uL Hgb 14.2 (11.4-16.0) gm/dL Hct 43.2 (34.0-46.0) % MCV 81.9 (80.0-100.0) fL MCH 27.0 (25.0-35.0) pg MCHC 32.9 (31.0-37.0) g/dL RDW 13.4 (11.5-15.5) % Plt Count 281 (150-450) k/uL Neutrophils % 78 % Lymphocytes % 14 % Monocytes % 3 % Eosinophils % 4 % Basophils % 1 % Neutrophils # 8.9 H (1.3-7.7) k/uL Lymphocytes # 1.6 (1.0-4.8) k/uL Monocytes # 0.3 (0-1.0) k/uL Eosinophils # 0.5 (0-0.7) k/uL Basophils # 0.1 (0-0.2) k/uL PT (9.0-12.0) sec INR (<1.2) APTT (22.0-30.0) sec Sodium (137-145) mmol/L Potassium (3.5-5.1) mmol/L Chloride (98-107) mmol/L Carbon Dioxide (22-30) mmol/L Anion Gap mmol/L BUN (7-17) mg/dL Creatinine (0.52-1.04) mg/dL Est GFR (CKD-EPI)AfAm (>60 ml/min/1.73 sqM) Est GFR (CKD-EPI)NonAf (>60 ml/min/1.73 sqM) Glucose (74-99) mg/dL POC Glucose (mg/dL) 195 H (75-99) mg/dL POC Glu Bereavement Coordinator ID Lauren Rocha Calcium (8.4-10.2) mg/dL Magnesium (1.6-2.3) mg/dL Total Bilirubin (0.2-1.3) mg/dL AST (14-36) U/L ALT (9-52) U/L Alkaline Phosphatase (38-126) U/L Troponin I (0.000-0.034) ng/mL Total Protein (6.3-8.2) g/dL Albumin (3.5-5.0) g/dL Urine Color Colorless Urine Appearance Clear (Clear) Urine pH 5.5 (5.0-8.0) Ur Specific [place] 1.004 (1.001-1.035) Urine Protein Negative (Negative) Urine Glucose (UA) Negative (Negative) Urine Ketones Negative (Negative) Urine Blood Negative (Negative) Urine Nitrite Negative (Negative) Urine Bilirubin Negative (Negative) Urine Urobilinogen <2.0 (<2.0) mg/dL Ur Leukocyte Esterase Negative (Negative) 05/18/17 05/18/17 05/18/17 Range/Units 10:06 10:06 10:06 WBC (3.8-10.6) k/uL RBC (3.80-5.40) m/uL Hgb (11.4-16.0) gm/dL Hct (34.0-46.0) % MCV (80.0-100.0) fL MCH (25.0-35.0) pg MCHC (31.0-37.0) g/dL RDW (11.5-15.5) % Plt Count (150-450) k/uL Neutrophils % % Lymphocytes % % Monocytes % % Eosinophils % % Basophils % % Neutrophils # (1.3-7.7) k/uL Lymphocytes # (1.0-4.8) k/uL Monocytes # (0-1.0) k/uL Eosinophils # (0-0.7) k/uL Basophils # (0-0.2) k/uL PT 10.1 (9.0-12.0) sec INR 1.0 (<1.2) APTT 21.9 L (22.0-30.0) sec Sodium 141 (137-145) mmol/L Potassium 4.2 (3.5-5.1) mmol/L Chloride 106 (98-107) mmol/L Carbon Dioxide 21 L (22-30) mmol/L Anion Gap 14 mmol/L BUN 18 H (7-17) mg/dL Creatinine 0.55 (0.52-1.04) mg/dL Est GFR (CKD-EPI)AfAm >90 (>60 ml/min/1.73 sqM) Est GFR (CKD-EPI)NonAf 88 (>60 ml/min/1.73 sqM) Glucose 211 H (74-99) mg/dL POC Glucose (mg/dL) (75-99) mg/dL POC Glu Bereavement Coordinator ID Calcium 10.0 (8.4-10.2) mg/dL Magnesium 1.6 (1.6-2.3) mg/dL Total Bilirubin 0.4 (0.2-1.3) mg/dL AST 20 (14-36) U/L ALT 22 (9-52) U/L Alkaline Phosphatase 64 (38-126) U/L Troponin I <0.012 (0.000-0.034) ng/mL Total Protein 7.4 (6.3-8.2) g/dL Albumin 4.4 (3.5-5.0) g/dL Urine Color Urine Appearance (Clear) Urine pH (5.0-8.0) Ur Specific [place] (1.001-1.035) Urine Protein (Negative) Urine Glucose (UA) (Negative) Urine Ketones (Negative) Urine Blood (Negative) Urine Nitrite (Negative) Urine Bilirubin (Negative) Urine Urobilinogen (<2.0) mg/dL Ur Leukocyte Esterase (Negative) - Medical Decision Making Patient presents with syncopal episode. Workup is thus far negative. She will be admitted for observation. 05/18/17 11:36 Twelve-lead EKG interpreted by me showing ventricular rate 86 bpm, slightly long SD interval, no ST elevation or depression, interpreted by me as sinus rhythm with first-degree AV block. Past Medical History Past Medical History: Chest Pain / Angina, CVA/TIA, GERD/Reflux, Hyperlipidemia , Hypertension Additional Past Medical History / Comment(s): 3 TIA's in the past,allergic rhinitis. History of Any Multi-Drug Resistant Organisms: None Reported Past Surgical History: Adenoidectomy, Hysterectomy, Joint Replacement, Tonsillectomy Additional Past Surgical History / Comment(s): Bilateral hip replacement,T+A, Partial Hysterectomy,Bilateral Ctaracts surgeries. Past Anesthesia/Blood Transfusion Reactions: No Reported Reaction Past Psychological History: Anxiety Smoking Status: Former smoker Past Alcohol Use History: Occasional Past Drug Use History: None Reported - Past Family History Father Family Medical History: Myocardial Infarction ([place]) (Father at the age of 63 with [place].) Mother Family Medical History: Coronary Artery Disease (CAD) (mother at the age of 82 from CAD,and dementia.), Dementia Sister(s) Family Medical History: No Reported History (2 sisters no major medical problems.) Son(s) Family Medical History: No Reported History (she has 2 sons no major medical problem.) Daughter(s) Family Medical History: No Reported History (she has one daughter with no major medical problems.) Course Vital Signs 05/18/17 05/18/17 09:54 10:14 Temperature 98.6 F Pulse Rate 96 83 Respiratory 18 16 Rate Blood Pressure 219/97 191/83 O2 Sat by Pulse 98 98 Oximetry Disposition Clinical Impression: Syncope Disposition: ADMITTED IP TO THIS HOSP Condition: Fair Referrals: Lucian Sterling MD [Primary Care Provider] - 1-2 days Time of Disposition: 11:37
[2017-05-18] MEDS: amLODIPine 5 MG TAB PO SCH ×2 (14:12→20:44)
[2017-05-18] MEDS: LISINOPRIL 20 MG TAB PO SCH ×2 (14:13→20:44)
--- NOTE | 2017-05-18 14:42 | US ---
EXAMINATION TYPE: US carotid duplex BILAT DATE OF EXAM: 05/18/2017 COMPARISON: 11/24/2016 CLINICAL HISTORY: Pain. CVA EXAM MEASUREMENTS: RIGHT: Peak Systolic Velocity (PSV) cm/sec ----- Right CCA: 60.8 ----- Right ICA: 77.5 ----- Right ECA: 124.0 ICA/CCA ratio: 1.3 RIGHT: End Diastole cm/sec ----- Right CCA: 8.4 ----- Right ICA: 21.0 ----- Right ECA: 4.7 LEFT: Peak Systolic Velocity (PSV) cm/sec ----- Left CCA: 61.3 ----- Left ICA: 122.3 ----- Left ECA: 122.3 ICA/CCA ratio: 2.0 LEFT: End Diastole cm/sec ----- Left CCA: 10.2 ----- Left ICA: 21.0 ----- Left ECA: 0.0 VERTEBRALS (direction of flow): Right Vertebral: Antegrade Left Vertebral: Antegrade Rhythm: Normal Bilateral intimal thickening, plaque bilateral bulb greater on left side, torturous left ICA, no elev ated velocities, left ICA/CCA ratio 2.0 Plaque seen in mid left CCA and anterior left bulb. IMPRESSION: 1. Bilateral intimal thickening with findings suggestive of a 50-79% stenosis involving the proximal left ICA. Criteria for Assigning % of Stenosis / Diameter reduction (Estimation based on the indirect measurements of the internal carotid artery velocities (ICA PSV). 1. Normal (no stenosis)=ICA PSV < 125 cm/s: ratio < 2.0: ICA EDV<40 cm/s. 2. Less than 50% stenosis=ICA PSV < 125 cm/s: ratio < 2.0: ICA EDV<40 cm/s. 3. 50 to 69% stenosis=ICA PSV of 125 to 230 cm/s: ration 2.0 ? 4.0: ICA EDV 40-100 cm/s. 4. Greater than 70% stenosis to near occlusion= ICA PSV > 230 cm/s: ratio > 4.0: ICA EDV > 100 cm/s. 5. Near occlusion= ICA PSV velocities may be low or undetectable: variable ratio and ICA EDV. 6. Total occlusion=unable to detect flow.
--- NOTE | 2017-05-18 18:24 | EEG ---
ELECTROENCEPHALOGRAM REPORT DATE OF SERVICE: 05/18/2017 REASON FOR TESTING: Syncope and headache. DESCRIPTION OF THE PROCEDURE: This EEG was performed using a 21-channel digital electroencephalograph, following international 10-20 system. DESCRIPTION OF THE RECORDING: From the beginning of the tracing, and with patient's eyes closed, the background rhythm was mostly consisting of 10 Hz alpha frequency in the posterior occipital leads. No obvious asymmetry is seen. Frequent muscle and movement artifacts are seen. Photic stimulation was performed with a minimal driving response seen. No pathological waves were elicited. Hyperventilation was not performed. The patient remains awake throughout the tracing. No epileptiform discharges were seen. Her EKG lead showed a regular rate and rhythm. INTERPRETATION: This awake EEG can be considered within normal limits. There was no asymmetry seen. No epileptiform discharges were noticed. The absence of epileptiform discharges does not rule out the diagnosis of epilepsy; therefore clinical correlation is recommended. MMMARY KAY / KENZIE: [id number] /
[2017-05-18] MEDS ORDERED: RX INFO: IV CONTRAST WAS GIVEN 1 EACH MISC MISCELLANE PRN (18:31)
[2017-05-18] MEDS ORDERED: hydrALAZINE HCL 10 MG TAB PO PRN (18:41)
--- NOTE | 2017-05-18 19:43 | P.HPIM ---
History of Present Illness H&P Date: 05/18/17 Chief Complaint: Syncope This is an 81-year-old pleasant lady patient of Dr. Sterling. He has underlying history of TIAs, hyperlipidemia and GERD, hypertension admitted to the emergency room secondary to syncope. Patient denies any history of seizures, CAD or CHF,. Patient drove herself to the emergency room after the syncope, patient has some headache, patient didn't feel right, can't remember what transpired or the events that happened thereafter. She sees Dr. Sterling on a routine visit, last visit was approximately 5 months ago, no new medication changes, Imaging studies in the facility was in November, for which carotid Dopplers were done that shows plaque in the mid left common carotid and anterior left bowel, elevated mid ICA and CCA velocity, could be due to tortuous vessel, no hemodynamically significant stenosis noted patient was admitted to the emergency room with syncope, consult were made with neurology Dr. Laya Jean-Baptiste and Dr Gandhi. Carotid Dopplers were requested, EEG of the brain, echocardiogram, patient was not orthostatic however she has significantly elevated blood pressure systolic 180-190 when seen emergency room, urinalysis was negative. Patient was asymptomatic with my evaluation emergency room without any focal neurologic deficits, orthostatics will be obtained during this admission, patient might need an event monitor post discharge Review of Systems Constitutional: Reports as per HPI, Denies anorexia, Denies chills, Denies chronic headaches, Denies chronic pain, Denies daytime sleepiness, Denies fatigue, Denies fever, Denies lethargy, Denies malaise, Denies night sweats, Denies poor appetite, Denies sweats, Denies weakness, Denies weight gain, Denies weight loss Ears, nose, mouth and throat: Reports as per HPI, Denies ant. neck pain, Denies bleeding gums, Denies dental pain, Denies dysphagia, Denies epistaxis, Denies headache, Denies hoarseness, Denies mouth pain, Denies nasal congestion, Denies nasal discharge, Denies neck fullness/pressure, Denies neck lump, Denies nose pain, Denies odynophagia, Denies post-nasal drip, Denies sinus pain, Denies sinus pressure, Denies swelling in mouth, Denies swelling in throat, Denies sore throat, Denies vertigo, Denies voice changes Cardiovascular: Reports as per HPI, Denies chest pain, Denies claudication, Denies decreased exercise tolerance, Denies dyspnea on exertion, Denies edema, Denies high blood pressure, Denies irregular heart beat, Denies leg edema, Denies lightheadedness, Denies orthopnea, Denies palpitations, Denies paroxysmal nocturnal dyspnea, Denies phlebitis, Denies rapid heart beat, Denies shortness of breath, Denies syncope Respiratory: Reports as per HPI, Denies congestion, Denies cough, Denies cough with sputum, Denies dyspnea, Denies excessive sputum, Denies hemoptysis, Denies home oxygen, Denies pain, Denies pain on inspiration, Denies pleurisy, Denies respiratory infections, Denies sleep apnea, Denies snoring, Denies wheezing Gastrointestinal: Reports as per HPI, Denies abdominal pain, Denies belching, Denies bloating, Denies BRBPR, Denies change in bowel habits, Denies coffee ground emesis, Denies constipation, Denies diarrhea, Denies dyspepsia, Denies early satiety, Denies excessive gas, Denies heartburn, Denies hematemesis, Denies hematochezia, Denies indigestion, Denies jaundice, Denies lactose intolerance, Denies loss of appetite, Denies melena, Denies nausea, Denies vomiting Genitourinary: Reports as per HPI, Denies abnormal vaginal bleeding, Denies decreased libido, Denies difficulty conceiving, Denies difficulty voiding, Denies dysmenorrhea, Denies dyspareunia, Denies dysuria, Denies flank pain, Denies genital sores, Denies hematuria, Denies hot flashes, Denies incomplete emptying, Denies kidney stones, Denies menorrhagia, Denies mixed incontinence, Denies nocturia, Denies pelvic pain, Denies post void dribbling, Denies , Denies prolapse symptoms, Denies stress incontinence, Denies urge incontinence , Denies urgency, Denies urinary frequency, Denies vaginal discharge, Denies vaginal dryness, Denies vaginal itching, Denies vaginal odor Menstruation: Reports as per HPI, Denies amenorrhea, Denies amenorrhea on BC, Denies currently menstrual, Denies cycle < 21 days, Denies cycle > 35 days, Denies cycle variable, Denies menses 1-7 days, Denies menses 8 or > days, Denies menses variable, Denies period heavy, Denies period light, Denies period normal, Denies period spotting, Denies post hysterectomy, Denies postmenopausal , Denies premenarcheal Musculoskeletal: Reports as per HPI, Denies arm numbness/tingling, Denies atrophy, Denies fractures, Denies frequent falls, Denies gait dysfunction, Denies hot joints, Denies leg numbness/tingling, Denies limitation of motion, Denies loss of height, Denies low back pain, Denies morning stiffness, Denies muscle cramps, Denies muscle weakness, Denies myalgias, Denies neck pain, Denies neck stiffness, Denies prior amputations, Denies redness of joints, Denies shooting arm pain, Denies shooting leg pain Integumentary: Reports as per HPI Neurological: Reports as per HPI, Reports syncope, Denies aphasia, Denies ataxia , Denies balance difficulties, Denies burning pain, Denies change in mentation, Denies change in smell/taste, Denies change in speech, Denies confusion, Denies convulsions, Denies double vision, Denies gait dysfunction, Denies head injury, Denies headaches, Denies hearing difficulties, Denies lack of coordination, Denies loss of vision, Denies memory loss, Denies migraines, Denies motor disturbance, Denies numbness, Denies paralysis, Denies paresthesias, Denies seizures, Denies sensory deficit, Denies spasticity, Denies tic, Denies tingling , Denies transient paralysis, Denies tremors, Denies vertigo, Denies weakness, Denies visual changes Psychiatric: Reports as per HPI, Denies anhedonia, Denies anxiety, Denies anxiety attacks, Denies change in appetite, Denies change in libido, Denies change in sleep habits, Denies confusion, Denies depression, Denies difficulty concentrating, Denies disorientation, Denies hallucinations, Denies hopelessness , Denies hypersomnia, Denies insomnia, Denies irritability, Denies memory loss, Denies mood swings, Denies paranoia, Denies sadness/tearfulness, Denies sleep disturbances, Denies suicidal ideation Endocrine: Reports as per HPI, Denies cold intolerance, Denies deepening of the voice, Denies excessive sweating, Denies excessive thirst, Denies fatigue, Denies flushing, Denies heat intolerance, Denies high blood sugars, Denies increase in ring/shoe/hat size, Denies low blood sugars, Denies nocturia, Denies palpitations, Denies polydipsia, Denies polyphagia, Denies polyuria, Denies proptosis, Denies recent glucocorticoid use, Denies thyroid mass, Denies weight change Hematologic/Lymphatic: Reports as per HPI, Denies easy bleeding, Denies easy bruising, Denies lymphadenopathy, Denies lymphedema, Denies thrombophilia Allergic/Immunologic: Reports as per HPI, Denies allergic rhinitis, Denies anaphylaxis, Denies angioedema, Denies gluten intolerance, Denies persistent infections, Denies seasonal allergies, Denies urticaria, Denies wheezing Past Medical History Past Medical History: Chest Pain / Angina, CVA/TIA, GERD/Reflux, Hyperlipidemia , Hypertension, Osteoarthritis (OA) Additional Past Medical History / Comment(s): 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 History of Any Multi-Drug Resistant Organisms: None Reported Past Surgical History: Adenoidectomy, Hysterectomy, Joint Replacement, Tonsillectomy Additional Past Surgical History / Comment(s): Bilateral hip replacement, partial hysterectomy, bilateral cataracts removed with lens implants. Past Anesthesia/Blood Transfusion Reactions: No Reported Reaction Smoking Status: Former smoker - Past Family History Father Family Medical History: Myocardial Infarction ([place]) Additional Family Medical History / Comment(s): Father of a [place] at the age of 63yrs. Mother Family Medical History: Coronary Artery Disease (CAD), Dementia Additional Family Medical History / Comment(s): Mother at the age of 82 yrs. Sister(s) Family Medical History: No Reported History Son(s) Family Medical History: No Reported History Daughter(s) Family Medical History: No Reported History Medications and Allergies Home Medications Medication Instructions Recorded Confirmed Type Aspirin 162 mg PO DAILY 04/09/14 05/18/17 History Levothyroxine Sodium [Synthroid] 50 mcg PO DAILY 04/09/14 05/18/17 History amLODIPine BESYLATE/BENAZEPRIL 1 cap PO BID 04/09/14 05/18/17 History [Lotrel 5-20 mg Capsule] ALPRAZolam [Xanax] 0.125 mg PO BID PRN 06/16/16 05/18/17 History Acetaminophen [Tylenol 8 Hour] 1,300 mg PO Q6H PRN 05/18/17 05/18/17 History Atorvastatin [Lipitor] 10 mg PO HS 05/18/17 05/18/17 History Glucosamine Sulfate 1,000 mg PO DAILY 05/18/17 05/18/17 History Allergies Allergy/AdvReac Type Severity Reaction Status Date / Time tetanus and diphtheria Allergy Unknown Verified 05/18/17 10:25 toxoids Childhood [tetanus & diphtheria toxoids] Physical Exam Vitals: Vital Signs Temp Pulse Pulse Resp BP BP Pulse Ox 05/18/17 18:37 193/84 05/18/17 17:34 70 16 05/18/17 17:01 97.9 F 70 16 183/80 98 05/18/17 16:27 62 16 152/72 98 05/18/17 15:40 68 16 172/89 98 05/18/17 14:10 81 16 225/110 98 05/18/17 10:14 83 16 191/83 98 05/18/17 09:54 98.6 F 96 18 219/97 98 Intake and Output 05/18/17 05/18/17 05/18/17 06:59 14:59 22:59 Other: Voiding Method Toilet Weight 69.4 kg 69.6 kg Patient Weight 05/19/17 06:59 Weight 69.6 kg - Constitutional General appearance: cooperative, no acute distress - EENT Eyes: anicteric sclerae, EOMI, PERRLA ENT: NA/AT, normal oropharynx - Neck Neck: normal ROM - Respiratory Respiratory: bilateral: CTA, negative: diminished, dullness, rales, rhonchi - Cardiovascular Rhythm: regular Heart sounds: normal: S1, S2 Abnormal Heart Sounds: no systolic murmur, no diastolic murmur, no rub, no S3 Gallop, no S4 Gallop, no click, no other - Gastrointestinal General gastrointestinal: normal bowel sounds, soft - Integumentary Integumentary: normal, normal turgor - Neurologic Neurologic: CNII-XII intact - Musculoskeletal Musculoskeletal: gait normal, strength equal bilaterally - Psychiatric Psychiatric: A&O x's 3, appropriate affect, intact judgment & insight Results CBC & Chem 7: 05/18/17 10:06 05/18/17 10:06 Labs: Abnormal Lab Results - Last 24 Hours (Table) 05/18/17 05/18/17 05/18/17 Range/Units 10:02 10:06 10:06 WBC 11.4 H (3.8-10.6) k/uL Neutrophils # 8.9 H (1.3-7.7) k/uL APTT (22.0-30.0) sec Carbon Dioxide 21 L (22-30) mmol/L BUN 18 H (7-17) mg/dL Glucose 211 H (74-99) mg/dL POC Glucose (mg/dL) 195 H (75-99) mg/dL 05/18/17 Range/Units 10:06 WBC (3.8-10.6) k/uL Neutrophils # (1.3-7.7) k/uL APTT 21.9 L (22.0-30.0) sec Carbon Dioxide (22-30) mmol/L BUN (7-17) mg/dL Glucose (74-99) mg/dL POC Glucose (mg/dL) (75-99) mg/dL Thrombosis Risk Factor Assmnt - DVT/VTE Prophylaxis DVT/VTE Prophylaxis: Mechanical Prophylaxis ordered, Low risk, early ambulation encouraged - Choose All That Apply Any of the Below Risk Factors Present?: Yes Each Factor Represents 1 point: Obesity (BMI >25) Other Risk Factors: Yes Each Risk Factor Represents 3 Points: Age 75 years or older Other congenital or acquired thrombophilia - If yes, enter type in comment: No Thrombosis Risk Factor Assessment Total Risk Factor Score: 4 Thrombosis Risk Factor Assessment Level: Moderate Risk Assessment and Plan Plan: 1. Acute syncopal co-pay, etiologies could be multifactorial based on her age and risk factors, known history of previous TIA in the past, CTA of the neck was requested, neurology Dr. Otero would follow, along with EEG of the brain, echocardiogram, patient was seen by Dr. LAYA Bazzi from cardiology, and most likely an event monitor would be performed, orthostatic vital signs monitored for neurologic decompensation, no PT OT needed at this time, would continue to address needs 2. hypothyroidism on 50 mcg daily 3 urgent hypertension patient currently is on Lotrel 07/26 one twice a day, we' ll going to add hydralazine 10 mg every 6 hours when necessary, and titrate to control blood pressures with an oral pill Every 4 hours 4. hyperlipidemia on lipitor 5. TIA on plavix no residual deficits 6. Osteoarthritis not on any opiates on Tylenol when necessary 7. RUDDY, on when necessary Xanax 0.125 mg twice a day
--- NOTE | 2017-05-18 20:42 | CT ---
EXAMINATION TYPE: CT angio neck DATE OF EXAM: 05/18/2017 HISTORY: Dizziness, abnormal US COMPARISON: NONE CT DLP: 191.8 mGycm. Automated Exposure Control for Dose Reduction was Utilized. TECHNIQUE: CTA scan of the neck is performed with IV Contrast, patient injected with 65 mL of Omnipa que 350, axial images are obtained, coronal and sagittal reformatted images are reviewed. Three-D rec onstructed images are created on an independent workstation and reviewed. FINDINGS: There is asymmetric enlargement of the right thyroid lobe. There is normal branching pattern of the great vessels on the aortic arch. There is arterial flow in the common internal and external carotid arteries bilaterally. There is art erial flow in the right vertebral artery. There is no evidence of flow in the left vertebral artery. There is wide patency of the right carotid artery bifurcation. There is 50% lumen narrowing at the or igin of the left internal carotid artery apparently due to diffuse plaque formation. There is no evid ence of carotid dissection. IMPRESSION: There is 50% luminal narrowing due to diffuse plaque at the left carotid artery bifurcati on and origin of the left internal carotid artery. 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 There is probably retrograde filling of the distal left vertebral artery from t he right side. I do not see significant stenosis at the origin of the left subclavian artery. There i s arterial flow in the left internal mammary artery.
[2017-05-18] MEDS: FAMOTIDINE 20 MG TAB PO SCH (20:44)
[2017-05-18] MEDS ORDERED: ATORVASTATIN 10 MG TAB PO SCH (21:00)
--- NOTE | 2017-05-19 00:05 | CONS ---
CONSULTATION DATE OF CONSULTATION: 05/18/2017 CHIEF COMPLAINT: Transient amnestic episode. HISTORY OF PRESENT ILLNESS: Mrs. Soto is a pleasant 81-year-old, female who is being evaluated by the Neurology service per the request of Dr. Elise for a transient amnestic spell. The patient was brought into [facility] Emergency Room after she had an episode where she lost track of time. The patient states that she remembers being at home, getting ready to leave the house to sweet pickle maker her friend, and go to an events. The patient then suddenly notices that approximately 30 minutes of time had lapsed and she had put on her shoes and socks without ever remembering doing so. She denies any dizziness or actual loss of consciousness, but just does not recall events during that half hour. She then went to her friend's house, driving, when she knew that she was not picking her up from her house and was actually picking her up from her place of volunteering. When she did call her friend, she brought her into the emergency room. The patient does have previous history of transient ischemic attacks and does take aspirin 81 mg daily at home. In the emergency room, a CT scan of the brain was done, which showed small-vessel ischemic changes and generalized atrophy. A carotid Doppler was done, which showed 50-79% stenosis involving the left internal carotid artery. Her CBC showed mild leukocytosis at 11.4. Her INR was normal. Her comprehensive metabolic profile was normal except for elevated glucose at 211. Her cardiac enzymes and urinalysis were normal. The patient was also complaining of a headache that is minimal involving mainly the posterior part of the head. She denies any head injuries. At the time of my evaluation, she states that she has no actual headache, but the back of her head "feels different." She denies any lateralizing weakness or numbness, but does recall having frequent episodes of bilateral hand numbness and feet numbness, but this is symmetrical. PAST MEDICAL HISTORY: Transient ischemic attacks, angina, gastroesophageal reflux disease, dyslipidemia, hypertension, history of adenoidectomy, hysterectomy, joint replacement surgery, tonsillectomy. She also reports a history of anxiety disorder. She also has history of cataract surgeries. SOCIAL HISTORY: The patient is a former smoker. She occasionally drinks alcohol. She denies any drug use. FAMILY HISTORY: Positive for heart disease. HOME MEDICATIONS: Reviewed in the chart. ALLERGIES: TETANUS VACCINE AND /TOXINS. REVIEW OF SYSTEMS: CONSTITUTIONAL: Negative. EYES: Negative. ENT: Negative. CARDIOVASCULAR: Negative. RESPIRATORY: Negative. NEUROLOGICAL: As mentioned above. GASTROINTESTINAL: Positive for occasional heartburn. GENITOURINARY: Negative. PSYCHIATRIC: Positive for history of anxiety disorder. MUSCULOSKELETAL: Positive for occasional joint pain. ENDOCRINE: Negative. DERMATOLOGICAL: Negative. PHYSICAL EXAM: Vital signs show a temperature of 98.6, pulse 62, respirations 16, blood pressure 152/72. Her blood pressure on arrival was 219/97. GENERAL APPEARANCE: The patient is a well-developed, elderly female, who appears to be in no acute distress. HEENT: Normocephalic, atraumatic, no facial asymmetry is seen. NECK: Supple with no masses felt. CARDIOVASCULAR: Regular rate and rhythm. ABDOMEN: Nontender, nondistended. EXTREMITIES: Showed no edema or clubbing. Tinel's sign is positive in bilateral upper extremities. NEUROLOGICAL EXAM: The patient is alert aware and oriented x3. Speech and language are normal. Strength is full in all 4 extremities. Sensory exam was normal to light touch in all 4 extremities. Tinel's sign was positive in bilateral upper extremities. Strength is full in all 4 extremities. No tremors or seizure-like activity is seen. No facial asymmetry is noticed on cranial nerve testing. IMPRESSION: 1. Transient ischemic attack. 2. Transient amnestic episode. 3. Extremity numbness and tingling, chronic. 4. Carotid stenosis. 5. Uncontrolled hypertension. RECOMMENDATION: The patient does appear to have suffered a transient ischemic attack with a transient amnestic episode. Her blood pressure was quite elevated on arrival. I do recommend adjusting her home medications. Her carotid Doppler did show evidence of significant stenosis on the left side. I will order a CT angiogram of the neck. I did review her EEG, which was normal. I will order a fasting lipid panel and serum homocystine level. 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 Further outpatient neurophysiological workup will be needed. The patient was on aspirin at home. I will discontinue aspirin and start her on Plavix 75 mg daily. Continue neuro checks. I will continue to follow with you. If her CT angiogram of the neck shows 70% stenosis or greater, I do recommend Vascular Surgery consultation. I will continue to follow with you. Further recommendations to follow. Thank you for allowing me to participate in the care of your patient. If you have any questions, please feel free to contact me. MMSHYLAL / IJN: [id number] /
[2017-05-19] MEDS: LEVOTHYROXINE 50 MCG TAB PO SCH (05:00)
[2017-05-19 07:51] LABS: ALT 24 U/L (9-52); AST 18 U/L (14-36); Albumin 4.1 g/dL (3.5-5.0); Alkaline Phosphatase 55 U/L (38-126); Anion Gap 13 mmol/L; Blood Urea Nitrogen 19 mg/dL (7-17); Calcium 9.5 mg/dL (8.4-10.2); Carbon Dioxide 21 mmol/L (22-30); Chloride 110 mmol/L (98-107); Cholesterol 244 mg/dL (<200); Glucose 114 mg/dL (74-99); HDL Cholesterol 59 mg/dL (40-60); LDL Cholesterol,Calculated 142 mg/dL (0-99); Potassium 4.4 mmol/L (3.5-5.1); Sodium 144 mmol/L (137-145); Total Bilirubin 0.5 mg/dL (0.2-1.3); Total Protein 6.8 g/dL (6.3-8.2); Triglycerides 213 mg/dL (<150)
[2017-05-19] MEDS ORDERED: ASPIRIN 81 MG PO SCH (09:00)
[2017-05-19 10:14] LABS: Basophils # (A) 0.1 k/uL (0-0.2); Basophils % (A) 1 %; Eosinophils # (A) 0.4 k/uL (0-0.7); Eosinophils % (A) 5 %; HGB 14.3 gm/dL (11.4-16.0); Lymphocytes # (A) 2.1 k/uL (1.0-4.8); Lymphocytes % (A) 26 %; MCH 26.3 pg (25.0-35.0); MCV 84.9 fL (80.0-100.0); Mean Platelet Volume 9.5; Monocytes # (A) 0.5 k/uL (0-1.0); Monocytes % (A) 6 %; Neutrophils # (A) 4.9 k/uL (1.3-7.7); Neutrophils % (A) 60 %; Platelet Count 195 k/uL (150-450); RBC 5.42 m/uL (3.80-5.40); RDW 13.6 % (11.5-15.5); WBC 8.1 k/uL (3.8-10.6)
[2017-05-19] MEDS: amLODIPine 5 MG TAB PO SCH ×2 (11:04→20:51)
[2017-05-19] MEDS: LISINOPRIL 20 MG TAB PO SCH ×2 (11:04→20:51)
[2017-05-19] MEDS: CLOPIDOGREL 75 MG TAB PO SCH (11:04)
[2017-05-19] MEDS: FAMOTIDINE 20 MG TAB PO SCH ×2 (11:04→20:51)
[2017-05-19] MEDS ORDERED: methylPREDNISolone SOD SUCCI 40 MG/ML 1 ML VIAL IV STA (11:55)
[2017-05-19] MEDS ORDERED: MECLIZINE 12.5 MG TAB PO PRN (11:56)
[2017-05-19] MEDS ORDERED: FLUTICASONE 50MCG/SPRAY NASAL 16GM EA NOSTRIL SCH (12:00)
[2017-05-19] MEDS ORDERED: ACETAMINOPHEN TAB 500 MG TAB PO PRN (12:08)
[2017-05-19] MEDS: hydrALAZINE HCL 50 MG TAB PO SCH ×3 (12:35→20:51)
--- NOTE | 2017-05-19 14:13 | P.CRDCN ---
History of Present Illness Consult date: 05/19/17 History of present illness: Mrs. Soto is a pleasant 81-year-old female past medical history significant for hypertension, dyslipidemia, gastroesophageal reflux disease, TIA and hypothyroidism. She denies history of coronary artery disease. We've been asked to see her in consultation syncope. Neurology is also been consulted. 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 She does not recall putting on her shoes were getting her code on to leave although everything was on and she was ready to go. She denies symptoms of chest pain, dizziness, palpitations, shortness of breath, nausea, vomiting or diaphoresis associated with the event. Since arriving at the hospital she denies having any further symptoms of memory loss. Upon arrival blood pressure was 219/97 with heart rate of 96. She has remained elevated overnight. Orthostatic vital signs obtained this morning are positive for orthostatic changes. She started at 196/67 laying flat went to 166/72 at sitting and 158/76 upon standing. EKG on arrival reveals sinus mechanism with first-degree AV block. Evidence of left ventricular hypertrophy. No acute ST or T-wave abnormalities. Chest x-ray is negative for an acute cardiopulmonary process however there is a deviation of the trachea from the [id number] is a prominent soft tissue density could be enlarged thyroid. CT of the brain his negative for an acute process. No acute hemorrhage or mass effect. Degenerative change and nonspecific white matter changes most typical remote microvascular ischemia. Carotid duplex shows bilateral intimal thickening with findings suggestive of a 50-79% stenosis involving the proximal left ICA. CT angios of the neck reveals 50% luminal narrowing due to diffuse plaque at the left carotid artery bifurcation and origin of the left internal carotid artery. 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 There is probably retrograde filling of the distal left vertebral artery from the right side. No significant stenosis of the left subclavian artery. EEG was unremarkable. Telemetry tracings have been unremarkable. Laboratory data reviewed, on admission WBC 11.4, this morning only 8.1, hemoglobin 14.3, platelets 195, potassium 4.4, magnesium 1.6, creatinine 0.57, cardiac enzymes negative 3, LDL 142. Current cardiac medications include amlodipine/benazepril 5/20 mg twice a day, atorvastatin 10 mg daily and aspirin 162 mg daily. Neurology has seen the patient and recommends discontinuing aspirin starting patient on Plavix 75 mg daily. Review of Systems At the time of my exam: CONSTITUTIONAL: Denies fever. Denies chills. EYES: Denies blurred vision. Denies vision changes. Denies eye pain. EARS, NOSE, MOUTH & THROAT: Denies headache. Denies sore throat. Denies ear pain. CARDIOVASCULAR: Denies chest pain. Denies shortness of breath. Denies orthopnea. Denies PND. Denies palpitations. RESPIRATORY: Denies cough. GASTROINTESTINAL: Denies abdominal pain. Denies diarrhea. Denies constipation. Denies nausea. Denies vomiting. MUSCULOSKELETAL: Denies myalgias. INTEGUMENTARY: Denies pruitis. Denies rash. NEUROLOGIC: Denies numbness. Denies tingling. Denies weakness. PSYCHIATRIC: Denies anxiety. Denies depression. ENDOCRINE: Denies fatigue. Denies weight change. Denies polydipsia. Denies polyurina. GENITOURINARY: Denies burning, hematuria or urgency with micturation. HEMATOLOGIC: Denies history of anemia. Denies bleeding. 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 History of Any Multi-Drug Resistant Organisms: None Reported Past Surgical History: Adenoidectomy, Hysterectomy, Joint Replacement, Tonsillectomy Additional Past Surgical History / Comment(s): Bilateral hip replacement, partial hysterectomy, bilateral cataracts removed with lens implants. Past Anesthesia/Blood Transfusion Reactions: No Reported Reaction Smoking Status: Former smoker - Past Family History Father Family Medical History: Myocardial Infarction (NH) Additional Family Medical History / Comment(s): Father of a NH at the age of 63yrs. Mother Family Medical History: Coronary Artery Disease (CAD), Dementia Additional Family Medical History / Comment(s): Mother at the age of 82 yrs. Sister(s) Family Medical History: No Reported History Son(s) Family Medical History: No Reported History Daughter(s) Family Medical History: No Reported History Medications and Allergies Home Medications Medication Instructions Recorded Confirmed Type Aspirin 162 mg PO DAILY 04/09/14 05/18/17 History Levothyroxine Sodium [Synthroid] 50 mcg PO DAILY 04/09/14 05/18/17 History amLODIPine BESYLATE/BENAZEPRIL 1 cap PO BID 04/09/14 05/18/17 History [Lotrel 5-20 mg Capsule] ALPRAZolam [Xanax] 0.125 mg PO BID PRN 06/16/16 05/18/17 History Acetaminophen [Tylenol 8 Hour] 1,300 mg PO Q6H PRN 05/18/17 05/18/17 History Atorvastatin [Lipitor] 10 mg PO HS 05/18/17 05/18/17 History Glucosamine Sulfate 1,000 mg PO DAILY 05/18/17 05/18/17 History Allergies Allergy/AdvReac Type Severity Reaction Status Date / Time tetanus and diphtheria Allergy Unknown Verified 05/18/17 10:25 toxoids Childhood [tetanus & diphtheria toxoids] Physical Exam Vitals: Vital Signs Temp Pulse Pulse Pulse Pulse Pulse Resp 05/19/17 12:00 71 75 78 70 18 05/19/17 08:00 97.6 F 71 18 05/19/17 04:00 97.9 F 79 15 05/18/17 23:58 53 L 16 05/18/17 23:56 97.9 F 59 L 16 05/18/17 20:00 66 16 05/18/17 19:33 98.1 F 80 15 05/18/17 18:37 05/18/17 17:34 70 16 05/18/17 17:01 97.9 F 70 16 05/18/17 16:27 62 16 05/18/17 15:40 68 16 05/18/17 14:10 81 16 BP BP BP BP BP Pulse Ox 05/19/17 12:00 166/72 158/76 196/67 98 05/19/17 08:00 172/61 95 05/19/17 04:00 131/60 95 05/18/17 23:58 05/18/17 23:56 141/61 96 05/18/17 20:00 05/18/17 19:33 169/75 95 05/18/17 18:37 193/84 05/18/17 17:34 05/18/17 17:01 183/80 98 05/18/17 16:27 152/72 98 05/18/17 15:40 172/89 98 05/18/17 14:10 225/110 98 Intake and Output 05/18/17 05/19/17 05/19/17 22:59 06:59 14:59 Intake Total 240 Balance 240 Intake: Oral 240 Other: Voiding Method Toilet Toilet Toilet # Voids 3 1 Weight 69.6 kg Blood pressure 166/72 heart rate 75 afebrile maintaining oxygen saturation on room air. GENERAL: This is a 81-year-old female in no apparent distress at the time of my examination. HEENT: Head is atraumatic, normocephalic. Pupils are equal, round. Sclerae anicteric. Conjunctivae are clear. Mucous membranes of the mouth are moist. Neck is supple. There is no jugular venous distention. No carotid bruit is heard. LUNGS: Clear to auscultation no wheezes, rales or rhonchi. No chest wall tenderness is noted on palpation or with deep breathing. HEART: Regular rate and rhythm with systolic ejection murmur at the base, no rubs or gallops. S1 and S2 heard. ABDOMEN: Soft, nontender. Bowel sounds are heard. No organomegaly noted. EXTREMITIES: No evidence of peripheral edema and no calf tenderness noted. VASCULAR: Radial and dorsalis pedis pulses palpated, no evidence of clubbing. NEUROLOGIC: Patient is awake, alert and oriented x3. Results 05/19/17 07:04 05/19/17 07:04 Cardiac Enzymes 05/18/17 05/18/17 05/19/17 Range/Units 16:08 22:44 07:04 AST 18 (14-36) U/L Troponin I 0.019 0.014 (0.000-0.034) ng/mL Lipids 05/19/17 Range/Units 07:04 Triglycerides 213 H (<150) mg/dL Cholesterol 244 H (<200) mg/dL HDL Cholesterol 59 (40-60) mg/dL CBC 05/19/17 Range/Units 07:04 WBC 8.1 (3.8-10.6) k/uL RBC 5.42 H (3.80-5.40) m/uL Hgb 14.3 (11.4-16.0) gm/dL Hct 46.0 (34.0-46.0) % Plt Count 195 (150-450) k/uL Comprehensive Metabolic Panel 05/19/17 Range/Units 07:04 Sodium 144 (137-145) mmol/L Potassium 4.4 (3.5-5.1) mmol/L Chloride 110 H (98-107) mmol/L Carbon Dioxide 21 L (22-30) mmol/L BUN 19 H (7-17) mg/dL Creatinine 0.57 (0.52-1.04) mg/dL Glucose 114 H (74-99) mg/dL Calcium 9.5 (8.4-10.2) mg/dL AST 18 (14-36) U/L ALT 24 (9-52) U/L Alkaline Phosphatase 55 (38-126) U/L Total Protein 6.8 (6.3-8.2) g/dL Albumin 4.1 (3.5-5.0) g/dL Current Medications Generic Name Dose Route Start Last Admin Trade Name Freq PRN Reason Stop Dose Admin Acetaminophen 500 mg 05/19/17 12:08 05/19/17 12:35 Tylenol Tab PO 500 mg Q4HR PRN Administration Fever and/ or mild Pain Amlodipine Besylate 5 mg 05/18/17 11:45 05/19/17 11:04 Norvasc PO 5 mg BID [facility] Administration Atorvastatin Calcium 10 mg 05/18/17 21:00 05/18/17 20:45 Lipitor PO Not Given HS [facility] Clopidogrel Bisulfate 75 mg 05/19/17 09:00 05/19/17 11:04 Plavix PO 75 mg DAILY [facility] Administration Famotidine 20 mg 05/18/17 21:00 05/19/17 11:04 Pepcid PO 20 mg BID [facility] Administration Fluticasone Propionate 1 spray 05/19/17 21:00 Flonase Nasal [place] EA NOSTRIL BID [facility] Hydralazine HCl 10 mg 05/18/17 18:41 05/18/17 19:02 Apresoline PO 10 mg Q4HR PRN Administration Blood Pressure - High Hydralazine HCl 50 mg 05/19/17 12:00 05/19/17 12:35 Apresoline PO 50 mg TID [facility] Administration Levothyroxine Sodium 50 mcg 05/19/17 06:30 05/19/17 05:00 Synthroid PO Not Given DAILY@0630 [facility] Lisinopril 20 mg 05/18/17 12:00 05/19/17 11:04 Zestril PO 20 mg BID [facility] Administration Meclizine HCl 12.5 mg 05/19/17 11:56 Antivert PO TID PRN Vertigo Miscellaneous Information 1 each 05/18/17 18:31 Rx Info: Iv Contrast Was Given MISCELLANE 05/20/17 18:32 DAILY PRN Per Protocol Naloxone HCl 0.2 mg 05/18/17 11:32 Narcan IV Q2M PRN Opioid Reversal Ondansetron HCl 4 mg 05/18/17 11:32 Zofran IVP Q8HR PRN Nausea And Vomiting Intake and Output 05/18/17 05/19/17 05/19/17 22:59 06:59 14:59 Intake Total 240 Balance 240 Intake: Oral 240 Other: Voiding Method Toilet Toilet Toilet # Voids 3 1 Weight 69.6 kg 05/19/17 07:04 05/19/17 07:04 Assessment and Plan Assessment: ASSESSMENT 1. Episode of memory loss and confusion. Diagnosed per neurology as TIA. 2. Hypertension, uncontrolled 3. Dyslipidemia, uncontrolled 4. May consider possible issue with noncompliance. 5. Orthostatic positive. Even though blood pressures are elevated she does have a difference of 30 points with position change. Possible dehydration component and advanced age. 6. Tracheal deviation noted on chest x-ray possible thyroid enlargement. Managed by primary medical team. PLAN Echocardiogram will be reviewed. Apply event monitor for 2 weeks. Follow up with Dr. Schwartz in 3 weeks. Stable from cardiac perspective. Thank you kindly for this consultation. Nurse Practitioner note has been reviewed, I agree with a documented findings and plan of care. Patient was seen and examined.
--- NOTE | 2017-05-19 18:48 | P.PN ---
Subjective Progress Note Date: 05/19/17 This is an 81-year-old pleasant lady patient of Dr. Sterling. He has underlying history of TIAs, hyperlipidemia and GERD, hypertension admitted to the emergency room secondary to syncope. Patient denies any history of seizures, CAD or CHF,. Patient drove herself to the emergency room after the syncope, patient has some headache, patient didn't feel right, can't remember what transpired or the events that happened thereafter. She sees Dr. Sterling on a routine visit, last visit was approximately 5 months ago, no new medication changes, Imaging studies in the facility was in November, for which carotid Dopplers were done that shows plaque in the mid left common carotid and anterior left bowel, elevated mid ICA and CCA velocity, could be due to tortuous vessel, no hemodynamically significant stenosis noted patient was admitted to the emergency room with syncope, consult were made with neurology Dr. Laya Jean-Baptiste and Dr Gandhi. Carotid Dopplers were requested, EEG of the brain, echocardiogram, patient was not orthostatic however she has significantly elevated blood pressure systolic 180-190 when seen emergency room, urinalysis was negative. Patient was asymptomatic with my evaluation emergency room without any focal neurologic deficits, orthostatics will be obtained during this admission, patient might need an event monitor post discharge 313: Patient feels weak, lightheadedness when he stands up, orthostatics was positive, patient remains to be significantly hypertensive, systolic of 190, and it drops down to 160 on standing. Patient also has upper respiratory problems, and increased peeling sensation related to it, no purulence no sinus infection, patient was given Solu-Medrol, along with meclizine, cardiology has requested outpatient event monitor post discharge, patient does not feel safe to go home alone secondary to lightheadedness and vertiginous sensation. Patient would be discharged in 24 hours Objective - Vital Signs Vital signs: Vital Signs Temp 98.2 F 05/19/17 16:00 Pulse 63 05/19/17 16:00 Resp 18 05/19/17 16:00 BP 116/49 05/19/17 16:00 Pulse Ox 95 05/19/17 16:00 Intake & Output 05/18/17 05/19/17 05/19/17 18:59 06:59 18:59 Intake Total 440 Balance 440 Weight 69.6 kg Intake: Oral 240 Other 200 Other: Voiding Method Toilet Toilet Toilet # Voids 3 1 - Constitutional General appearance: Present: cooperative, no acute distress - EENT Eyes: Present: anicteric sclerae, EOMI, PERRLA, dentition normal, normal appearance ENT: Present: NA/AT, normal oropharynx - Neck Neck: Present: normal ROM. Absent: lymphadenopathy, other, rigidity, stridor, thyromegaly - Respiratory Respiratory: bilateral: CTA, negative: diminished, dullness, rales - Cardiovascular Rhythm: regular Heart sounds: normal: S1, S2 Abnormal Heart Sounds: Absent: systolic murmur, diastolic murmur, rub, S3 Gallop , S4 Gallop, click, other - Gastrointestinal General gastrointestinal: Present: normal bowel sounds, soft - Integumentary Integumentary: Present: decreased turgor, normal - Neurologic Neurologic: Present: CNII-XII intact - Musculoskeletal Musculoskeletal: Present: gait normal, strength equal bilaterally - Psychiatric Psychiatric: Present: A&O x's 3, intact judgment & insight - Labs CBC & Chem 7: 05/19/17 07:04 05/19/17 07:04 Labs: Abnormal Lab Results - Last 24 Hours (Table) 05/19/17 05/19/17 Range/Units 07:04 07:04 RBC 5.42 H (3.80-5.40) m/uL Chloride 110 H (98-107) mmol/L Carbon Dioxide 21 L (22-30) mmol/L BUN 19 H (7-17) mg/dL Glucose 114 H (74-99) mg/dL Triglycerides 213 H (<150) mg/dL Cholesterol 244 H (<200) mg/dL LDL Cholesterol, Calc 142 H (0-99) mg/dL Assessment and Plan Plan: 1. Acute syncopal episode etiologies could be multifactorial based on her age and risk factors, known history of previous TIA in the past, CTA of the neck was requested, neurology Dr. Otero would follow, along with EEG of the brain, echocardiogram, patient was seen by Dr. LAYA Bazzi from cardiology, and most likely an event monitor would be performed, orthostatic vital signs monitored for neurologic decompensation, no PT OT needed at this time, would continue to address needs 2. Orthostatic hypotension, patient is not on any diuretics, advised increase hydration and increased proteins from diet neck 3. Vertiginous sensation with upper respiratory tract infection, meclizine is started, oral prednisone 1, also suspicious for benign positional vertigo, has bilateral serous otitis media, without any purulence, no sinusitis. No antibiotics needed no plans for oral prednisone on discharge, Rx for nasal spray Flonase 2. hypothyroidism on 50 mcg daily 3 urgent hypertension patient currently is on Lotrel 07/26 one twice a day, we' ll going to add hydralazine 10 mg every 6 hours when necessary, and titrate to control blood pressures with an oral pill still uncontrolled, hydralazine 50 mg 3 times a day started, 4. hyperlipidemia on lipitor 5. TIA on plavix no residual deficits 6. Osteoarthritis not on any opiates on Tylenol when necessary 7. RUDDY, on when necessary Xanax 0.125 mg twice a day disposition discharge in the morning with event monitor
--- NOTE | 2017-05-19 19:06 | ECHOF ---
Referral Reason:syncope MEASUREMENTS -------- HEIGHT: 162.6 cm WEIGHT: 69.4 kg BP: 225/105 RVIDd: 3.1 cm (< 3.3) IVSd: 0.9 cm (0.6 - 1.1) LVIDd: 4.4 cm (3.9 - 5.3) LVPWd: 1.1 cm (0.6 - 1.1) IVSs: 1.6 cm LVIDs: 2.0 cm LVPWs: 1.8 cm LAESV Index (A-L): 28.41 ml/m Ao Diam: 3.1 cm (2.0 - 3.7) AV Cusp: 1.6 cm (1.5 - 2.6) LA Diam: 2.6 cm (2.7 - 3.8) MV E Delon: 0.59 m/s MV DecT: 408 ms MV A Delon: 1.18 m/s MV E/A Ratio: 0.50 AV maxP.35 mmHg AV meanP.73 mmHg AR PHT: 628 ms RAP: 5.00 mmHg RVSP: 25.47 mmHg FINDINGS -------- Sinus rhythm. This was a technically adequate study. The left ventricular size is normal. Left ventricular wall thickness is normal. Overall left vent ricular systolic function is normal with, an EF between 55 - 60 %. The right ventricle is normal in size and function. LA is midly dilated 29-33ml/m2. The right atrium is normal in size. Aortic valve is trileaflet and is mildly thickened. There is [id number] aortic regurgitation. There is mild aortic stenosis present. Peak/mean gradient across the Aortic Valve is 19.35mmHg / 10.73mmHg. The mitral valve leaflets are mildly thickened. Mild mitral annular calcification present. There is trace to mild mitral regurgitation. Trace tricuspid regurgitation present. Right ventricular systolic pressure is normal at < 35 mmHg. There is no evidence of pulmonary hypertension. Trace/mild (physiologic) pulmonic regurgitation. The aortic root size is normal. Normal inferior vena cava with normal inspiratory collapse consistent with estimated right atrial pre ssure of 5 mmHg. The pericardium is normal. There is no pericardial effusion. CONCLUSIONS -------- 1. Sinus rhythm. 2. This was a technically adequate study. 3. The left ventricular size is normal. 4. Left ventricular wall thickness is normal. 5. Overall left ventricular systolic function is normal with, an EF between 55 - 60 %. 6. LA is midly dilated 29-33ml/m2. 7. Aortic valve is trileaflet and is mildly thickened. 8. There is [id number] aortic regurgitation. 9. There is mild aortic stenosis present. 10. Peak/mean gradient across the Aortic Valve is 19.35mmHg / 10.73mmHg. 11. The mitral valve leaflets are mildly thickened. 12. Mild mitral annular calcification present. 13. There is trace to mild mitral regurgitation. 14. Trace tricuspid regurgitation present. 15. Right ventricular systolic pressure is normal at < 35 mmHg. 16. There is no evidence of pulmonary hypertension. 17. Trace/mild (physiologic) pulmonic regurgitation. 18. The aortic root size is normal. 19. There is no pericardial effusion. INSTRUCTIONAL SUPERVISOR: Nader Conteh RDCS
--- NOTE | 2017-05-19 20:27 | P.PN ---
Subjective Progress Note Date: 05/19/17 Principal diagnosis: TIA Neurology is following on a 81 year old female for TIA and altered mental status /amnestic episode Interval update (05/19/17): Patient was resting in bed, supine in no acute distress, AOx4. Patient was seen by hospitalist who noted fluid in the ear and placed the patient on steroid. Patient has also been prescribed meclizine for her dizziness/disequilibrium complaints but has yet to use her medication. Patient is being placed on a cardiac event monitor per patient to investigate her possible cardiac etiology. Patient is noted to have elevated total cholesterol, triglycerides. Patient is currently on lipitor at 40 mg, po, QHS and plavix 75 mg daily. Patient has had no new symptoms and did not state any numbness and tingling in the distal extremities although she reported it to nursing earlier in the day. Initial Information: Patient was experiencing a transient amnestic episode and the patient was brought to the ED. Patient had reportedly lost track of time, was confused, had time gaps in memory, and was lost while operating her motor vehicle. Patient denied any dizziness, loss of consciousness, but does have a loss of recent past event recall. Patient has hx of TIA and was on [address] brain noted generalized atrophy, chronic small vessel ischemic disease. Carotid doppler noted 50-79% stenosis of the left ICA. CBC showed mild leukocytosis, INR was normal. CMP was unremarkable with the exception of noted elevated glucose. UA was normal. Patient was previously complaining of headache in the posterior head. Patient denied any lateralizing weakness, numbness but did complain of bilateral hand numbness and feet numbness but it is symmetrical. Objective - Vital Signs Vital signs: Vital Signs Temp 99.1 F 05/19/17 19:41 Pulse 110 H 05/19/17 19:41 Resp 16 05/19/17 19:41 BP 168/72 05/19/17 19:41 Pulse Ox 91 L 05/19/17 19:41 Intake & Output 05/19/17 05/19/17 05/20/17 06:59 18:59 06:59 Intake Total 440 240 Balance 440 240 Intake: Oral 240 240 Other 200 Other: Voiding Method Toilet Toilet # Voids 3 1 - Exam General appearance: Alert & oriented x4, no apparent distress. Head: Atraumatic, normocephalic, normal inspection Eyes: Well appearance, PERRLA, EOMI. Absent scleral icterus, conjunctival injection, nystagmus, periorbital swelling. Ear, nose and throat: Normal exam, mucous membranes moist Neck: Normal inspection, absent tenderness, lymphadenopathy. Respiratory: No increased work of breathing Cardiovascular: Regular rate, rhythm GI/abdominal: Normal bowel sounds, nondistended, no tenderness, no guarding, no rebound, no rigidity. Extremities: All range of motion, normal capillary refill, no tenderness, pedal edema joint swelling, calf tenderness. Neurological: cranial nerves II through XII intact no lateralizing weakness no facial asymmetry no seizure activity noted on physical exam no pronator drift and no nystagmus. Left lower extremity: 5/5 Right lower extremity: 5/5 Left upper extremity: 5/5 Right upper extremity: 5/5 Sensation: Left lower extremity: normal Right lower extremity: normal Left upper extremity: normal Right upper extremity: normal Psychological: Mood and affect appropriate for setting. - Labs CBC & Chem 7: 05/19/17 07:04 05/19/17 07:04 Labs: Abnormal Lab Results - Last 24 Hours (Table) 05/19/17 05/19/17 Range/Units 07:04 07:04 RBC 5.42 H (3.80-5.40) m/uL Chloride 110 H (98-107) mmol/L Carbon Dioxide 21 L (22-30) mmol/L BUN 19 H (7-17) mg/dL Glucose 114 H (74-99) mg/dL Triglycerides 213 H (<150) mg/dL Cholesterol 244 H (<200) mg/dL LDL Cholesterol, Calc 142 H (0-99) mg/dL Assessment and Plan (1) Transient amnesia Current Visit: Yes Status: Acute Code(s): R41.3 - OTHER AMNESIA SNOMED Code(s): 584889837 (2) TIA (transient ischemic attack) Current Visit: Yes Status: Acute Code(s): G45.9 - TRANSIENT CEREBRAL ISCHEMIC ATTACK, UNSPECIFIED SNOMED Code(s): 449527391 (3) Carotid stenosis Current Visit: Yes Status: Acute Code(s): I65.29 - OCCLUSION AND STENOSIS OF UNSPECIFIED CAROTID ARTERY SNOMED Code(s): 86769887 (4) Hyperlipidemia Current Visit: Yes Status: Acute Code(s): E78.5 - HYPERLIPIDEMIA, UNSPECIFIED SNOMED Code(s): 68352016 (5) Hypertriglyceridemia Current Visit: Yes Status: Acute Code(s): E78.1 - PURE HYPERGLYCERIDEMIA SNOMED Code(s): 922356701 Plan: 1. TIA 2. Transient amnestic episode Patient does appear to have experienced a TIA with transient amnestic episode. Patient is currently on plavix 75 mg, po, daily- recommend continue medication as prescribed. Symptoms have currently resolved per patient. If symptoms return , recommend MRI brain w and wo contrast 3. Hyperlipidemia- mixed (total cholesterol, triglycerides) Fasting lipid panel elevated as noted: Triglycerides- 213, total cholesterol - 244, LDL- 142 Patient is currently on lipitor 40 mg, QHS Prescribed/started- Tricor 160 mg, po, QDay for hypertriglyceridemia 4. Carotid stenosis 5. Vertebral artery stenosis- complete occlusion Patient has 50% left ICA occlusion on CTA Patient has complete occlusion of left vertebral artery Recommend vascular surgery consult for further treatment recommendations 6. Disequilibrium/syncope Continue antivert as prescribed Continue steroid therapy for noted ear fluid level Patient is + for orthostatics on testing Cardiology on consult recommending event monitor outpatient Further outpatient neurological workup will be needed to further investigate any underlying neurological etiology No further in patient neurological testing at this time. Status: Neurology will continue to follow and provide updates as needed or warranted. I have discussed the plan of care with the physician prior to implementation and he agrees with the plan as implemented.
[2017-05-19] MEDS ORDERED: FENOFIBRATE 160 MG TAB PO SCH (21:00)
[2017-05-19] MEDS ORDERED: ATORVASTATIN 40 MG TAB PO SCH (21:00)
[2017-05-19] MEDS: FLUTICASONE 50MCG/SPRAY NASAL 16GM EA NOSTRIL SCH (21:01)
[2017-05-20] MEDS: LEVOTHYROXINE 50 MCG TAB PO SCH (05:50)
[2017-05-20 08:51] LABS: Basophils # (A) 0.1 k/uL (0-0.2); Basophils % (A) 1 %; Eosinophils % (A) 0 %; HCT 46.2 % (34.0-46.0); HGB 14.6 gm/dL (11.4-16.0); Lymphocytes # (A) 1.9 k/uL (1.0-4.8); Lymphocytes % (A) 14 %; MCH 26.3 pg (25.0-35.0); MCHC 31.7 g/dL (31.0-37.0); MCV 83.1 fL (80.0-100.0); Monocytes # (A) 0.7 k/uL (0-1.0); Monocytes % (A) 5 %; Neutrophils # (A) 10.7 k/uL (1.3-7.7); Neutrophils % (A) 79 %; Platelet Count 334 k/uL (150-450); RBC 5.56 m/uL (3.80-5.40); RDW 13.5 % (11.5-15.5); WBC 13.6 k/uL (3.8-10.6)
[2017-05-20] MEDS: hydrALAZINE HCL 50 MG TAB PO SCH (09:14)
[2017-05-20] MEDS: CLOPIDOGREL 75 MG TAB PO SCH (09:14)
[2017-05-20] MEDS: LISINOPRIL 20 MG TAB PO SCH (09:14)
[2017-05-20] MEDS: amLODIPine 5 MG TAB PO SCH (09:14)
[2017-05-20] MEDS: FAMOTIDINE 20 MG TAB PO SCH (09:14)
[2017-05-20] MEDS: FLUTICASONE 50MCG/SPRAY NASAL 16GM EA NOSTRIL SCH (09:15)
[2017-05-20 09:23] LABS: ALT 18 U/L (9-52); AST 17 U/L (14-36); Albumin 4.6 g/dL (3.5-5.0); Alkaline Phosphatase 59 U/L (38-126); Anion Gap 13 mmol/L; Blood Urea Nitrogen 31 mg/dL (7-17); Calcium 10.1 mg/dL (8.4-10.2); Carbon Dioxide 25 mmol/L (22-30); Chloride 107 mmol/L (98-107); Glucose 106 mg/dL (74-99); Potassium 4.5 mmol/L (3.5-5.1); Sodium 145 mmol/L (137-145); Total Bilirubin 0.5 mg/dL (0.2-1.3); Total Protein 7.4 g/dL (6.3-8.2)
[2017-05-20 12:09] VITALS: BP 140/57; PULSE 58; RESP 16; TEMP 97.9
--- NOTE | 2017-05-29 10:08 | P.DS ---
Providers Date of admission: 05/18/17 11:34 Expected date of discharge: 05/20/17 Attending physician: Cindy Elise Consults: 05/18/17 11:33 Consult Physician Routine Consulting Provider: Concepcion Bazzi Consult Reason/Comments: syncope Do you want consulting provider notified?: Yes 05/18/17 11:41 Consult Physician Routine Consulting Provider: Natasha Otero Consult Reason/Comments: syncope Do you want consulting provider notified?: Yes Primary care physician: Lucian Asher [facility] Course: This is an 81-year-old pleasant lady patient of Dr. Sterling. He has underlying history of TIAs, hyperlipidemia and GERD, hypertension admitted to the emergency room secondary to syncope. Patient denies any history of seizures, CAD or CHF,. Patient drove herself to the emergency room after the syncope, patient has some headache, patient didn't feel right, can't remember what transpired or the events that happened thereafter. She sees Dr. Sterling on a routine visit, last visit was approximately 5 months ago, no new medication changes, Imaging studies in the facility was in 2016, November, for which carotid Dopplers were done that shows plaque in the mid left common carotid and anterior left bowel, elevated mid ICA and CCA velocity, could be due to tortuous vessel, no hemodynamically significant stenosis noted patient was admitted to the emergency room with syncope, consult were made with neurology Dr. Laya Jean-Baptiste and Dr Gandhi. Carotid Dopplers were requested, EEG of the brain, echocardiogram, patient was not orthostatic however she has significantly elevated blood pressure systolic 180-190 when seen emergency room, urinalysis was negative. Patient was asymptomatic with my evaluation emergency room without any focal neurologic deficits, orthostatics will be obtained during this admission, patient might need an event monitor post discharge 313: Patient feels weak, lightheadedness when he stands up, orthostatics was positive, patient remains to be significantly hypertensive, systolic of 190, and it drops down to 160 on standing. Patient also has upper respiratory problems, and increased peeling sensation related to it, no purulence no sinus infection, patient was given Solu-Medrol, along with meclizine, cardiology has requested outpatient event monitor post discharge, patient does not feel safe to go home alone secondary to lightheadedness and vertiginous sensation. Patient would be discharged in 24 hours 05/20: Echocardiogram reveals EF of 55-60% moderate aortic regurgitation, mild aortic stenosis and mild mitral regurgitation, trace tricuspid regurgitation. CT angiogram of the neck showed a 50% narrowing with diffuse plaque of the left carotid artery bifurcation and origin of the left internal carotid artery. There is complete occlusion of the left cerebral artery at its origin. Probable retrograde filling of the distal left vertebral artery from the right side. No significant stenosis at the origin of the left subclavian artery. There is arterial flow in the left internal mammary artery. Patient has been seen by Dr. Otero for TIA. Aspirin was discontinued and patient started on Plavix. Patient was seen by cardiology for episodes of memory loss and confusion. Plan is for event monitor for 2 weeks and follow-up with Dr. Schwartz in 3 weeks. Patient will need vascular follow-up regarding carotid stenosis which will be done as an outpatient. Patient states that she is feeling better today she is able to stand up. She states she normally goes to aerobics 5 times per week. She is anxious to be discharged home and will be discharged in stable condition. Discharge Diagnoses: 1. Acute syncopal episode secondary to either TIA, orthostatic hypotension, arrhythmia not ruled out 2. Orthostatic hypotension 3. Vertiginous sensation with upper respiratory tract infection 2. hypothyroidism 3 urgent hypertension 4. hyperlipidemia 5. TIA 6. Osteoarthritis generalized 7. RUDDY Discharge plan: Home Impression and plan of care have been directed as dictated by the signing physician. Cristal Banegas nurse practitioner acting as scribe for signing physician. Patient Condition at Discharge: Good Plan - Discharge Summary Discharge Rx Participant: No New Discharge Prescriptions: New Clopidogrel [Plavix] 75 mg PO DAILY #30 tab Fenofibrate [Lofibra] 160 mg PO HS #30 tab Fluticasone Nasal Robert Lee [Flonase Nasal Robert Lee] 1 spray EA NOSTRIL BID #1 spr hydrALAZINE HCL [Apresoline] 50 mg PO TID #90 tab Meclizine [Antivert] 12.5 mg PO TID PRN tab PRN Reason: Vertigo Continue amLODIPine BESYLATE/BENAZEPRIL [Lotrel 5-20 mg Capsule] 1 cap PO BID Levothyroxine Sodium [Synthroid] 50 mcg PO DAILY ALPRAZolam [Xanax] 0.125 mg PO BID PRN PRN Reason: Anxiety Atorvastatin [Lipitor] 10 mg PO HS Acetaminophen [Tylenol 8 Hour] 1,300 mg PO Q6H PRN PRN Reason: Pain Glucosamine Sulfate 1,000 mg PO DAILY Discontinued Aspirin 162 mg PO DAILY Discharge Medication List Levothyroxine Sodium [Synthroid] 50 mcg PO DAILY 04/09/14 [History] amLODIPine BESYLATE/BENAZEPRIL [Lotrel 5-20 mg Capsule] 1 cap PO BID 04/09/14 [ History] ALPRAZolam [Xanax] 0.125 mg PO BID PRN 06/16/16 [History] Acetaminophen [Tylenol 8 Hour] 1,300 mg PO Q6H PRN 05/18/17 [History] Atorvastatin [Lipitor] 10 mg PO HS 05/18/17 [History] Glucosamine Sulfate 1,000 mg PO DAILY 05/18/17 [History] Clopidogrel [Plavix] 75 mg PO DAILY #30 tab 05/20/17 [Rx] Fenofibrate [Lofibra] 160 mg PO HS #30 tab 05/20/17 [Rx] Fluticasone Nasal Robert Lee [Flonase Nasal Robert Lee] 1 spray EA NOSTRIL BID #1 spr [Rx] Meclizine [Antivert] 12.5 mg PO TID PRN tab 05/20/17 [Rx] hydrALAZINE HCL [Apresoline] 50 mg PO TID #90 tab 05/20/17 [Rx] Follow up Appointment(s)/Referral(s): Lucian Sterling MD [Primary Care Provider] - 1 Week Natasha Otero MD [STAFF PHYSICIAN] - 1 Week (Office will call with appointment ) Jono Schwartz MD [STAFF PHYSICIAN] - 3 Weeks (Office will call with appointment.) Patient Instructions/Handouts: Syncope (DC) Discharge Disposition: HOME SELF-CARE
== END 2017-05-20 14:40 | disposition home or self-care (01) ==
LOC: EC 09:40 → 3OBS 11:34
PROVIDERS: ADMIT Family Medicine; ATTEND Family Medicine
DX: R55 Syncope and collapse (principal); I95.1 Orthostatic hypotension; I16.0 Hypertensive urgency; I10 Essential (primary) hypertension; H65.93 Unspecified nonsuppurative otitis media, bilateral; J06.9 Acute upper respiratory infection, unspecified; Z86.73 Personal history of transient ischemic attack (TIA), and cerebral infarction without residual deficits; E03.9 Hypothyroidism, unspecified; E78.5 Hyperlipidemia, unspecified; M19.90 Unspecified osteoarthritis, unspecified site; F41.1 Generalized anxiety disorder; K21.9 Gastro-esophageal reflux disease without esophagitis; I65.02 Occlusion and stenosis of left vertebral artery; I65.22 Occlusion and stenosis of left carotid artery; E78.1 Pure hyperglyceridemia; E66.9 Obesity, unspecified; Z68.26 Body mass index [BMI] 26.0-26.9, adult; Z79.82 Long term (current) use of aspirin; Z79.899 Other long term (current) drug therapy; Z88.7 Allergy status to serum and vaccine; Z87.891 Personal history of nicotine dependence; Z82.49 Family history of ischemic heart disease and other diseases of the circulatory system; Z81.8 Family history of other mental and behavioral disorders
CPT/HCPCS: 36415; 95816; 93005; 93306; 93270; 93271; 80061; 80053 ×3; 84443; 83735; 84484; 85025 ×3; 85610; 85730; 81003; 83090; 71046; 93880; 70450; 70498; 99285; 96374; G0378 ×3; J2920; Q9967

== ENCOUNTER 2022-07-06 17:31 | Emergency (ER) | payer MEDICARE ==
--- NOTE | 2022-07-06 18:10 | ED ---
General Adult HPI - General Chief complaint: Recheck/Abnormal Lab/Rx Stated complaint: High BP, nosebleed, ear pain Time Seen by Provider: 07/06/22 18:02 Source: patient, family Mode of arrival: ambulatory Limitations: no limitations - History of Present Illness Initial comments: Patient presents to the ED with her son and [id number] for evaluation. Patient was sent from urgent care due to elevated blood pressure. Patient states that she developed left-sided epistaxis early this afternoon, and that is why she went to urgent care. Patient states that her epistaxis had resolved by the time she reached urgent care, but she states that her blood pressure was elevated, so she was referred to the emergency department for further evaluation. Patient states that she has a history of hypertension for which she is prescribed and takes blood pressure medications. Patient denies any recent missed doses or change in her blood pressure medications. Patient states that she has been taking her blood pressure medications regularly as prescribed. Patient states that she takes a daily baby aspirin, but she denies any other anticoagulant medication use. Patient denies trauma or injury, any pain, fever or chills, headache, focal numbness/weakness/neuro deficit, visual changes, speech difficulty, nasal pain, chest pain, dyspnea, palpitations, dizziness, abdominal pain, nausea/vomiting/diaphoresis, bloody or melanotic stool, or any other symptoms or complaints. - Related Data Home Medications Medication Instructions Recorded Confirmed Levothyroxine Sodium [Synthroid] 50 mcg PO DAILY 04/09/14 07/06/22 amLODIPine BESYLATE/BENAZEPRIL 1 cap PO BID 04/09/14 07/06/22 [Lotrel 5-20 MG] Aspirin EC [Ecotrin Low Dose] 81 mg PO DAILY 07/06/22 07/06/22 Fluticasone Nasal [place] [Flonase 1 spray EA NOSTRIL BID 07/06/22 07/06/22 Nasal [place]] Rosuvastatin Calcium 5 mg PO DAILY 07/06/22 07/06/22 hydrALAZINE HCL [Apresoline] 50 mg PO TID PRN 07/06/22 07/06/22 metFORMIN HCL 500 mg PO BID 07/06/22 07/06/22 Previous Rx's Medication Instructions Recorded Meclizine [Antivert] 12.5 mg PO TID PRN tab 05/20/17 Allergies Allergy/AdvReac Type Severity Reaction Status Date / Time tetanus and diphtheria Allergy Unknown Verified 07/06/22 21:34 toxoids Childhood [tetanus & diphtheria toxoids] Review of Systems ROS Statement: Those systems with pertinent positive or pertinent negative responses have been documented in the HPI. ROS Other: All systems not noted in ROS Statement are negative. Past Medical History Past Medical History: Chest Pain / Angina, CVA/TIA, GERD/Reflux, Hyperlipidemia, Hypertension, Osteoarthritis (OA) Additional Past Medical History / Comment(s): 2008 CVA, TIAs, allergic rhinitis, chronic sinusitis, hypothyroid, arthritis worse in legs. History of Any Multi-Drug Resistant Organisms: None Reported Past Surgical History: Adenoidectomy, Hysterectomy, Joint Replacement, Tonsillectomy Additional Past Surgical History / Comment(s): Bilateral hip replacement, partial hysterectomy, bilateral cataracts removed with lens implants. Past Anesthesia/Blood Transfusion Reactions: No Reported Reaction Past Psychological History: Anxiety Smoking Status: Former smoker Past Alcohol Use History: Daily Past Drug Use History: None Reported - Past Family History Father Family Medical History: Myocardial Infarction (MD) Additional Family Medical History / Comment(s): Father of a MD at the age of 63yrs. Mother Family Medical History: Coronary Artery Disease (CAD), Dementia Additional Family Medical History / Comment(s): Mother at the age of 82 yrs. Sister(s) Family Medical History: No Reported History Son(s) Family Medical History: No Reported History Daughter(s) Family Medical History: No Reported History General Exam Limitations: no limitations General appearance: alert, in no apparent distress Head exam: Present: atraumatic, normocephalic Eye exam: Present: normal appearance, PERRL, EOMI ENT exam: Present: mucous membranes moist, TM's normal bilaterally, other (Dried blood and small clots are noted in left nasal cavity without any active epistaxis) Respiratory exam: Present: normal lung sounds bilaterally. Absent: respiratory distress, wheezes, rales, rhonchi, stridor Cardiovascular Exam: Present: regular rate, normal rhythm, normal heart sounds, other (Normal radial pulses bilaterally) GI/Abdominal exam: Present: soft. Absent: distended, tenderness, guarding Extremities exam: Absent: pedal edema Neurological exam: Present: alert, oriented X3, CN II-XII intact. Absent: motor sensory deficit Psychiatric exam: Present: normal affect, normal mood Skin exam: Present: warm, dry, intact, normal color Course Vital Signs 07/06/22 07/06/22 07/06/22 17:48 19:00 21:00 Temperature 98.0 F 98.1 F Pulse Rate 95 82 82 Respiratory 18 18 16 Rate Blood Pressure 206/83 170/82 168/78 O2 Sat by Pulse 97 97 Oximetry 07/06/22 21:46 Temperature 98.2 F Pulse Rate 79 Respiratory 18 Rate Blood Pressure 170/88 O2 Sat by Pulse 97 Oximetry - Reevaluation(s) Reevaluation #1: 07/06/22 21:40 Patient's blood pressure has now improved to 168/78. Patient has not had any epistaxis or developed any new symptoms while in the ED. Patient and son are aware the patient's test results, and they both feel comfortable with the patient being discharged home at this time. They were counseled about hypertension and epistaxis. They were clearly explained return and follow-up instructions. Patient was instructed to follow up closely with her primary care provider for further evaluation and management of her hypertension. EKG Findings - EKG Comments: EKG Findings:: ED physician interpretation: Normal sinus rhythm, ventricular rate of 90 bpm, no ectopy, normal UT and QRS intervals, normal QT interval, normal axis, moderate voltage criteria for LVH, no significant change when compared to 05/18/2017 EKG Medical Decision Making - Medical Decision Making Was pt. sent in by a medical professional or institution (, [facility], INDUSTRIAL SERVICES WORKER, urgent care, hospital, or usp...) When possible be specific @ -Patient was sent to the ED from urgent care. Did you speak to anyone other than the patient for history (EMS, parent, family, police, friend...)? What history was obtained from this source @ -No Did you review nursing and triage notes (agree or disagree)? Why? @ -I reviewed and agree with nursing and triage notes Were old charts reviewed (outside hosp., previous admission, EMS record, old EKG, old radiological studies, urgent care reports/EKG's, usp records)? Report findings @ -No old charts were reviewed Differential Diagnosis (chest pain, altered mental status, abdominal pain women, abdominal pain men, vaginal bleeding, weakness, fever, dyspnea, syncope, headache, dizziness, GI bleed, back pain, seizure, CVA, palpatations, mental health, musculoskeletal)? @ -Epistaxis, coagulopathy, anemia, hypertension, renal disease, medication reaction, anxiety EKG interpreted by me (3pts min.). @ -As above X-rays interpreted by me (1pt min.). @ -None done CT interpreted by me (1pt min.). @ -None done U/S interpreted by me (1pt. min.). @ -None done What testing was considered but not performed or refused? (CT, X-rays, U/S, labs)? Why? @ -None What meds were considered but not given or refused? Why? @ -None Did you discuss the management of the patient with other professionals (professionals i.e. , PA, INDUSTRIAL SERVICES WORKER, lab, RT, psych nurse, social media executive, intellectual property lawyer, teacher, learning officer, pillowcase folder)? Give summary @ -No Was smoking cessation discussed for >3mins.? @ -No Was critical care preformed (if so, how long)? @ -No Were there social determinants of health that impacted care today? How? (Homelessness, low income, unemployed, alcoholism, drug addiction, transportation, low edu. Level, literacy, decrease access to med. care, long term, rehab)? @ -No Was there de-escalation of care discussed even if they declined (Discuss DNR or withdrawal of care, Hospice)? DNR status @ -No What co-morbidities impacted this encounter? (DM, HTN, Smoking, COPD, CAD, Cancer, CVA, ARF, Chemo, Hep., AIDS, mental health diagnosis, sleep apnea, morbid obesity)? @ -Hypertension Was patient admitted / discharged? Hospital course, mention meds given and route, prescriptions, significant lab abnormalities, going to OR and other pertinent info. @ -Patient's blood pressure has now improved to 168/78. Patient has not had any epistaxis or developed any new symptoms while in the ED. Patient's labs and EKG are fairly unremarkable. Patient and son are aware the patient's test results, and they both feel comfortable with the patient being discharged home at this time. They were counseled about hypertension and epistaxis. They were clearly explained return and follow-up instructions. Patient was instructed to follow up closely with her primary care provider for further evaluation and management of her hypertension. Undiagnosed new problem with uncertain prognosis? @ -No Drug Therapy requiring intensive monitoring for toxicity (Heparin, Nitro, Insulin, Cardizem)? @ -No Were any procedures done? @ -No Diagnosis/symptom? @ -Epistaxis- resolved Acute, or Chronic, or Acute on Chronic? @ -Acute Uncomplicated (without systemic symptoms) or Complicated (systemic symptoms)? @ -Uncomplicated Side effects of treatment? @ -No Exacerbation, Progression, or Severe Exacerbation? @ -No Poses a threat to life or bodily function? How? (Chest pain, USA, MD, pneumonia, PE, COPD, DKA, ARF, appy, cholecystitis, CVA, Diverticulitis, Homicidal, Suicidal, threat to staff... and all critical care pts) @ -No Diagnosis/symptom? @ -Hypertension Acute, or Chronic, or Acute on Chronic? @ -Acute on chronic Uncomplicated (without systemic symptoms) or Complicated (systemic symptoms)? @ -Uncomplicated Side effects of treatment? @ -none Exacerbation, Progression, or Severe Exacerbation] @ -no Poses a threat to life or bodily function? @ -no - Lab Data Result diagrams: 07/06/22 19:09 07/06/22 19:09 Lab Results 07/06/22 07/06/22 07/06/22 Range/Units 19:09 19:09 19:09 WBC 10.2 (3.8-10.6) k/uL RBC 5.18 (3.80-5.40) m/uL Hgb 14.5 (11.4-16.0) gm/dL Hct 43.8 (34.0-46.0) % MCV 84.5 (80.0-100.0) fL MCH 28.1 (25.0-35.0) pg MCHC 33.2 (31.0-37.0) g/dL RDW 12.8 (11.5-15.5) % Plt Count 296 (150-450) k/uL MPV 8.2 Neutrophils % 75 % Lymphocytes % 16 % Monocytes % 5 % Eosinophils % 1 % Basophils % 1 % Neutrophils # 7.7 (1.3-7.7) k/uL Lymphocytes # 1.7 (1.0-4.8) k/uL Monocytes # 0.5 (0-1.0) k/uL Eosinophils # 0.1 (0-0.7) k/uL Basophils # 0.1 (0-0.2) k/uL PT 10.3 (9.0-12.0) sec INR 1.0 (<1.2) APTT 22.4 (22.0-30.0) sec Sodium 139 (137-145) mmol/L Potassium 4.5 (3.5-5.1) mmol/L Chloride 104 (98-107) mmol/L Carbon Dioxide 22 (22-30) mmol/L Anion Gap 13 mmol/L BUN 16 (7-17) mg/dL Creatinine 0.44 L (0.52-1.04) mg/dL Est GFR (CKD-EPI)AfAm >90 (>60 ml/min/1.73 sqM) Est GFR (CKD-EPI)NonAf >90 (>60 ml/min/1.73 sqM) Glucose 139 H (74-99) mg/dL Calcium 9.5 (8.4-10.2) mg/dL Total Bilirubin 0.5 (0.2-1.3) mg/dL AST 22 (14-36) U/L ALT 20 (4-34) U/L Alkaline Phosphatase 69 (38-126) U/L Troponin I (0.000-0.034) ng/mL Total Protein 7.7 (6.3-8.2) g/dL Albumin 4.5 (3.5-5.0) g/dL 07/06/22 Range/Units 19:09 WBC (3.8-10.6) k/uL RBC (3.80-5.40) m/uL Hgb (11.4-16.0) gm/dL Hct (34.0-46.0) % MCV (80.0-100.0) fL MCH (25.0-35.0) pg MCHC (31.0-37.0) g/dL RDW (11.5-15.5) % Plt Count (150-450) k/uL MPV Neutrophils % % Lymphocytes % % Monocytes % % Eosinophils % % Basophils % % Neutrophils # (1.3-7.7) k/uL Lymphocytes # (1.0-4.8) k/uL Monocytes # (0-1.0) k/uL Eosinophils # (0-0.7) k/uL Basophils # (0-0.2) k/uL PT (9.0-12.0) sec INR (<1.2) APTT (22.0-30.0) sec Sodium (137-145) mmol/L Potassium (3.5-5.1) mmol/L Chloride (98-107) mmol/L Carbon Dioxide (22-30) mmol/L Anion Gap mmol/L BUN (7-17) mg/dL Creatinine (0.52-1.04) mg/dL Est GFR (CKD-EPI)AfAm (>60 ml/min/1.73 sqM) Est GFR (CKD-EPI)NonAf (>60 ml/min/1.73 sqM) Glucose (74-99) mg/dL Calcium (8.4-10.2) mg/dL Total Bilirubin (0.2-1.3) mg/dL AST (14-36) U/L ALT (4-34) U/L Alkaline Phosphatase (38-126) U/L Troponin I 0.022 (0.000-0.034) ng/mL Total Protein (6.3-8.2) g/dL Albumin (3.5-5.0) g/dL Disposition Clinical Impression: Hypertension, Epistaxis Disposition: HOME SELF-CARE Condition: Stable Instructions (If sedation given, give patient instructions): Nosebleed (ED), Hypertension (ED) Additional Instructions: Return to the ER immediately should you develop increased bleeding, any significant pain, a headache, numbness or weakness, vision or speech problems, chest pain or pressure, shortness of breath, vomiting, feeling dizzy or faint, or new or worsening symptoms. Follow up closely with your primary care prov ider. Is patient prescribed a controlled substance at d/c from ED?: No Referrals: Lucian Sterling MD [Primary Care Provider] - 1-2 days Time of Disposition: 21:52
[2022-07-06 19:28] LABS: Basophils # (A) 0.1 k/uL (0-0.2); Basophils % (A) 1 %; Eosinophils # (A) 0.1 k/uL (0-0.7); Eosinophils % (A) 1 %; HCT 43.8 % (34.0-46.0); HGB 14.5 gm/dL (11.4-16.0); Lymphocytes # (A) 1.7 k/uL (1.0-4.8); Lymphocytes % (A) 16 %; MCH 28.1 pg (25.0-35.0); MCHC 33.2 g/dL (31.0-37.0); MCV 84.5 fL (80.0-100.0); Mean Platelet Volume 8.2; Monocytes # (A) 0.5 k/uL (0-1.0); Monocytes % (A) 5 %; Neutrophils # (A) 7.7 k/uL (1.3-7.7); Neutrophils % (A) 75 %; Platelet Count 296 k/uL (150-450); RBC 5.18 m/uL (3.80-5.40); RDW 12.8 % (11.5-15.5); WBC 10.2 k/uL (3.8-10.6)
[2022-07-06 19:38] LABS: ALT 20 U/L (4-34); AST 22 U/L (14-36); African American GFR (CKD) >90 (>60 ml/min/1.73 sqM); Albumin 4.5 g/dL (3.5-5.0); Alkaline Phosphatase 69 U/L (38-126); Anion Gap 13 mmol/L; Blood Urea Nitrogen 16 mg/dL (7-17); Calcium 9.5 mg/dL (8.4-10.2); Carbon Dioxide 22 mmol/L (22-30); Chloride 104 mmol/L (98-107); Glucose 139 mg/dL (74-99); Non-African American GFR(CKD) >90 (>60 ml/min/1.73 sqM); Potassium 4.5 mmol/L (3.5-5.1); Sodium 139 mmol/L (137-145); Total Bilirubin 0.5 mg/dL (0.2-1.3); Total Protein 7.7 g/dL (6.3-8.2)
[2022-07-06 21:32] LABS: Partial Thromboplastin Time 22.4 sec (22.0-30.0); Prothrombin Time 10.3 sec (9.0-12.0)
[2022-07-06 21:47] VITALS: BP 170/88; PULSE 79; RESP 18; TEMP 98.2
== END 2022-07-06 21:54 | disposition home or self-care (01) ==
LOC: EC 17:31
DX: I10 Essential (primary) hypertension (principal); R04.0 Epistaxis; K21.9 Gastro-esophageal reflux disease without esophagitis; M19.90 Unspecified osteoarthritis, unspecified site; E03.9 Hypothyroidism, unspecified; Z86.73 Personal history of transient ischemic attack (TIA), and cerebral infarction without residual deficits; E78.5 Hyperlipidemia, unspecified; F41.9 Anxiety disorder, unspecified; Z87.891 Personal history of nicotine dependence; Z88.7 Allergy status to serum and vaccine; Z79.82 Long term (current) use of aspirin; Z79.84 Long term (current) use of oral hypoglycemic drugs; Z79.890 Hormone replacement therapy; Z79.899 Other long term (current) drug therapy
CPT/HCPCS: 36415; 80053; 84484; 85025; 85610; 85730; 93005; 99283

== ENCOUNTER 2023-01-01 06:29 | Inpatient (IN) | payer MEDICARE ==
[2023-01-01] MEDS ORDERED: SODIUM CHLORIDE 0.9% 500 ML 500 ML IV STA ×2 (06:45→09:21)
--- NOTE | 2023-01-01 06:48 | ED ---
General Adult HPI - General Chief complaint: Fall Stated complaint: Fall Time Seen by Provider: 01/01/23 06:35 Source: EMS Mode of arrival: EMS Limitations: no limitations - History of Present Illness Initial comments: The patient is an 87-year-old female who is a poor historian with history of hypertension, hyper such as slurred speech, facial droop, paralysis of the extremities or other focal deficits. lipidemia and diabetes presents emergency room with complaints of weakness, dizziness and just not feeling like herself over the last 2 days. Patient states that it progressively worsened over 2 days and this morning she was having difficulty with her daily routines her her son called EMS. The patient denies any cough, congestion, shortness breath. She denies any fevers, chest pain, abdominal pain, dysuria, hematuria or urinary frequency. Patient denies any recent illness. She has been eating and drinking without limitations. Patient denies any other neurological symptoms per son who ended up coming to the ED. the patient has become progressively more confused over the last two days. he believes she has had a history of UTIs in t he past. - Related Data Home Medications Medication Instructions Recorded Confirmed Levothyroxine Sodium [Synthroid] 50 mcg PO DAILY 04/09/14 01/01/23 amLODIPine BESYLATE/BENAZEPRIL 1 cap PO BID 04/09/14 01/01/23 [Lotrel 5-20 MG] Aspirin EC [Ecotrin Low Dose] 81 mg PO DAILY 07/06/22 01/01/23 hydrALAZINE HCL [Apresoline] 50 mg PO BID-W/MEALS 07/06/22 01/01/23 metFORMIN HCL 500 mg PO BID 07/06/22 01/01/23 Glucosamine/Chondr Gonzalez A Sod [Osteo 2 tab PO DAILY 01/01/23 01/01/23 Bi-Flex Caplet] Rosuvastatin [Crestor] 10 mg PO DAILY 01/01/23 01/01/23 hydrALAZINE HCL [Apresoline] 50 mg PO DAILY PRN 01/01/23 01/01/23 Allergies Allergy/AdvReac Type Severity Reaction Status Date / Time tetanus and diphtheria Allergy Unknown Verified 01/01/23 08:01 toxoids Childhood [tetanus & diphtheria toxoids] Review of Systems ROS Statement: Those systems with pertinent positive or pertinent negative responses have been documented in the HPI. ROS Other: All systems not noted in ROS Statement are negative. Past Medical History Past Medical History: Chest Pain / Angina, CVA/TIA, GERD/Reflux, Hyperlipidemia, Hypertension, Osteoarthritis (OA) Additional Past Medical History / Comment(s): 2008 CVA, TIAs, allergic rhinitis, chronic sinusitis, hypothyroid, arthritis worse in legs. History of Any Multi-Drug Resistant Organisms: None Reported Past Surgical History: Adenoidectomy, Hysterectomy, Joint Replacement, Tonsi llectomy Additional Past Surgical History / Comment(s): Bilateral hip replacement, partial hysterectomy, bilateral cataracts removed with lens implants. Past Anesthesia/Blood Transfusion Reactions: No Reported Reaction Past Psychological History: Anxiety Smoking Status: Former smoker Past Alcohol Use History: Daily Past Drug Use History: None Reported - Past Family History Father Family Medical History: Myocardial Infarction (CO) Additional Family Medical History / Comment(s): Father of a CO at the age of 63yrs. Mother Family Medical History: Coronary Artery Disease (CAD), Dementia Additional Family Medical History / Comment(s): Mother at the age of 82 yrs. Sister(s) Family Medical History: No Reported History Son(s) Family Medical History: No Reported History Daughter(s) Family Medical History: No Reported History General Exam Limitations: no limitations General appearance: alert, in no apparent distress Head exam: Present: atraumatic Eye exam: Present: normal appearance, PERRL ENT exam: Present: normal exam Neck exam: Present: normal inspection Respiratory exam: Present: normal lung sounds bilaterally. Absent: respiratory distress, wheezes, rales, rhonchi, stridor Cardiovascular Exam: Present: regular rate, normal rhythm GI/Abdominal exam: Present: soft, other (ecchymosis left abdomen/flank, mild pain with palpation) Extremities exam: Present: full ROM Back exam: Present: full ROM, other (pain over sacrum without ecchymosis, swelling or erythema) Neurological exam: Present: alert, oriented X3, CN II-XII intact, other (neg pronator drift, normal rom, normal card maker strength, no facial droop, neg [id number], NIH 0. ) Psychiatric exam: Present: normal affect, normal mood Skin exam: Present: warm, dry Course Vital Signs 10/26/23 10/26/23 10/26/23 06:39 08:28 09:15 Temperature Pulse Rate 97 75 77 Respiratory 18 18 18 Rate Blood Pressure 200/97 180/105 117/82 O2 Sat by Pulse 97 98 99 Oximetry 01/01/23 01/01/23 09:51 10:41 Temperature 99.3 F Pulse Rate 75 90 Respiratory 18 18 Rate Blood Pressure 133/65 146/61 O2 Sat by Pulse 97 97 Oximetry - Reevaluation(s) Reevaluation #1: 01/01/23 1030 reevaluation the patient became more progressively confused from when I had spoke with her early in the ED visit. we then noted she had ecchymosis over the left abdomen/flank area with mild pain with palpation. I did order a CT abdomen at this time due to the recent fall. She is still complaining of sacral pain and now believes it is not from the position she is in so a x-ray was ordered for the cecum as well. There is no acute fracture seen on imaging. I discussed admission plan with due to the ED EKG Findings - EKG Comments: EKG Findings:: EKG shows sinus rhythm with first-degree AV block rate 96 bpm, nonspecific T-wave changes Medical Decision Making - Medical Decision Making Was pt. sent in by a medical professional or institution (, PA, CRIMINAL JUSTICE LAWYER, urgent care, hospital, or senior living...) When possible be specific @ -[No] Did you speak to anyone other than the patient for history (EMS, parent, family, police, friend...)? What history was obtained from this source @ -Son at the bedside Did you review nursing and triage notes (agree or disagree)? Why? @ -[I reviewed and agree with nursing and triage notes] Were old charts reviewed (outside hosp., previous admission, EMS record, old EKG, old radiological studies, urgent care reports/EKG's, senior living records)? Report findings @ -Yes old charts were reviewed. Differential Diagnosis (chest pain, altered mental status, abdominal pain women, abdominal pain men, vaginal bleeding, weakness, fever, dyspnea, syncope, headache, dizziness, GI bleed, back pain, seizure, CVA, palpatations, mental health, musculoskeletal)? @ -TIA, CVA, urinary tract infection, CO, pneumonia EKG interpreted by me (3pts min.). @ -EKG shows sinus rhythm with first-degree AV block at a rate of 96 bpm. Nonspecific T-wave changes. X-rays interpreted by me (1pt min.). @ -Chest x-ray and sacral x-ray are negative for any acute changes. No fracture seen. No pneumothorax or pneumonia seen. Radiology report pending for confirmation of acute changes. CT interpreted by me (1pt min.). @ -CT of the head is negative for any mass hemorrhage or other acute changes. U/S interpreted by me (1pt. min.). @ -[None done] What testing was considered but not performed or refused? (CT, X-rays, U/S, labs)? Why? @ -[None] What meds were considered but not given or refused? Why? @ -[None] Did you discuss the management of the patient with other professionals (professionals i.e. , PA, CRIMINAL JUSTICE LAWYER, lab, RT, psych nurse, vp digital marketing social media and crm, senior oracle database administrator, teacher, corporate compliance officer, case monitor)? Give summary @ -I discussed patient's symptoms are Management with attending ED physician Dr. George today. On reevaluation patient became more confused from an injury initially saw her. She will be admitted for observation and antibiotics for suspected UTI. smokantibioting cessation discussed for >3mins.? @ -[No] Was critical care preformed (if so, how long)? @ -[No] Were there social determinants of health that impacted care today? How? (Homelessness, low income, unemployed, alcoholism, drug addiction, transportation, low edu. Level, literacy, decrease access to med. care, intermediate, rehab)? @ -[No] Was there de-escalation of care discussed even if they declined (Discuss DNR or withdrawal of care, Hospice)? DNR status @ -[No] What co-morbidities impacted this encounter? (DM, HTN, Smoking, COPD, CAD, Cancer, CVA, ARF, Chemo, Hep., AIDS, mental health diagnosis, sleep apnea, mor bid obesity)? @ -[None] Was patient admitted / discharged? Hospital course, mention meds given and route, prescriptions, significant lab abnormalities, going to OR and other pertinent info. @ -[patient will be admitted to the hospital for observation for the confusion and IV antibiotics for the suspected UTI. I discussed the admission plan with her son at the bedside.] Undiagnosed new problem with uncertain prognosis? @ -[No] Drug Therapy requiring intensive monitoring for toxicity (Heparin, Nitro, Insulin, Cardizem)? @ -[No] Were any procedures done? @ -[No] Diagnosis/symptom? confusion, suspected UTI, generalized weakness, recent fall fall with left flank contusion sacral contusion Acute, or Chronic, or Acute on Chronic? @ -acute Uncomplicated (without systemic symptoms) or Complicated (systemic symptoms)? @ -[default] Side effects of treatment? @ -[No] Exacerbation, Progression, or Severe Exacerbation? @ -[No] Poses a threat to life or bodily function? How? (Chest pain, USA, CO, pneumonia, PE, COPD, DKA, ARF, appy, cholecystitis, CVA, Diverticulitis, Homicidal, Suicidal, threat to staff... and all critical care pts) @ -[No] - Lab Data Result diagrams: 01/01/23 06:47 01/01/23 06:47 Lab Results 01/01/23 01/01/23 01/01/23 Range/Units 06:47 06:47 06:47 WBC 13.9 H (3.8-10.6) k/uL RBC 5.44 H (3.80-5.40) m/uL Hgb 14.7 (11.4-16.0) gm/dL Hct 45.7 (34.0-46.0) % MCV 84.0 (80.0-100.0) fL MCH 27.0 (25.0-35.0) pg MCHC 32.1 (31.0-37.0) g/dL RDW 13.6 (11.5-15.5) % Plt Count 266 (150-450) k/uL MPV 8.4 Neutrophils % 87 % Lymphocytes % 8 % Monocytes % 3 % Eosinophils % 1 % Basophils % 0 % Neutrophils # 12.1 H (1.3-7.7) k/uL Lymphocytes # 1.1 (1.0-4.8) k/uL Monocytes # 0.5 (0-1.0) k/uL Eosinophils # 0.1 (0-0.7) k/uL Basophils # 0.0 (0-0.2) k/uL Sodium 139 (137-145) mmol/L Potassium 3.7 (3.5-5.1) mmol/L Chloride 109 H (98-107) mmol/L Carbon Dioxide 17 L (22-30) mmol/L Anion Gap 13 mmol/L BUN 16 (7-17) mg/dL Creatinine 0.38 L (0.52-1.04) mg/dL Est GFR (CKD-EPI)AfAm >90 (>60 ml/min/1.73 sqM) Est GFR (CKD-EPI)NonAf >90 (>60 ml/min/1.73 sqM) Glucose 176 H (74-99) mg/dL Calcium 9.1 (8.4-10.2) mg/dL Total Bilirubin 0.5 (0.2-1.3) mg/dL AST 24 (14-36) U/L ALT 17 (4-34) U/L Alkaline Phosphatase 68 (38-126) U/L Troponin I (0.000-0.034) ng/mL NT-Pro-B Natriuret Pep pg/mL Total Protein 7.3 (6.3-8.2) g/dL Albumin 4.2 (3.5-5.0) g/dL Urine Color Colorless Urine Appearance Slightly Cloudy H (Clear) Urine pH 6.0 (5.0-8.0) Ur Specific [place] 1.010 (1.001-1.035) Urine Protein 1+ (Negative) Urine Glucose (UA) Negative (Negative) Urine Ketones 1+ (Negative) Urine Blood Negative (Negative) Urine Nitrite Positive H (Negative) Urine Bilirubin Negative (Negative) Urine Urobilinogen <2.0 (<2.0) mg/dL Ur Leukocyte Esterase Moderate (Negative) Urine RBC 1 (0-5) /hpf Urine WBC 10 H (0-5) /hpf Urine Bacteria Moderate H (None) /hpf Urine Mucus Rare H (None) /hpf Influenza Type A (PCR) (Not Detectd) Influenza Type B (PCR) (Not Detectd) RSV (PCR) (Not Detectd) SARS-CoV-2 (PCR) (Not Detectd) 01/01/23 01/01/23 01/01/23 Range/Units 06:47 06:47 06:47 WBC (3.8-10.6) k/uL RBC (3.80-5.40) m/uL Hgb (11.4-16.0) gm/dL Hct (34.0-46.0) % MCV (80.0-100.0) fL MCH (25.0-35.0) pg MCHC (31.0-37.0) g/dL RDW (11.5-15.5) % Plt Count (150-450) k/uL MPV Neutrophils % % Lymphocytes % % Monocytes % % Eosinophils % % Basophils % % Neutrophils # (1.3-7.7) k/uL Lymphocytes # (1.0-4.8) k/uL Monocytes # (0-1.0) k/uL Eosinophils # (0-0.7) k/uL Basophils # (0-0.2) k/uL Sodium (137-145) mmol/L Potassium (3.5-5.1) mmol/L Chloride (98-107) mmol/L Carbon Dioxide (22-30) mmol/L Anion Gap mmol/L BUN (7-17) mg/dL Creatinine (0.52-1.04) mg/dL Est GFR (CKD-EPI)AfAm (>60 ml/min/1.73 sqM) Est GFR (CKD-EPI)NonAf (>60 ml/min/1.73 sqM) Glucose (74-99) mg/dL Calcium (8.4-10.2) mg/dL Total Bilirubin (0.2-1.3) mg/dL AST (14-36) U/L ALT (4-34) U/L Alkaline Phosphatase (38-126) U/L Troponin I 0.031 (0.000-0.034) ng/mL NT-Pro-B Natriuret Pep 702 pg/mL Total Protein (6.3-8.2) g/dL Albumin (3.5-5.0) g/dL Urine Color Urine Appearance (Clear) Urine pH (5.0-8.0) Ur Specific [place] (1.001-1.035) Urine Protein (Negative) Urine Glucose (UA) (Negative) Urine Ketones (Negative) Urine Blood (Negative) Urine Nitrite (Negative) Urine Bilirubin (Negative) Urine Urobilinogen (<2.0) mg/dL Ur Leukocyte Esterase (Negative) Urine RBC (0-5) /hpf Urine WBC (0-5) /hpf Urine Bacteria (None) /hpf Urine Mucus (None) /hpf Influenza Type A (PCR) Not Detected (Not Detectd) Influenza Type B (PCR) Not Detected (Not Detectd) RSV (PCR) Not Detected (Not Detectd) SARS-CoV-2 (PCR) Not Detected (Not Detectd) - EKG Data -: EKG Interpreted by Me - Radiology Data Radiology results: report reviewed, image reviewed Disposition Clinical Impression: Fall, Confusion, UTI (urinary tract infection), Abdominal contusion, Sacral contusion Disposition: ADMITTED IP TO THIS [facility] Condition: Fair Referrals: Lucian Sterling MD [Primary Care Provider] - 1-2 days Decision Time: 10:45
[2023-01-01 07:03] LABS: Basophils % (A) 0 %; Eosinophils # (A) 0.1 k/uL (0-0.7); Eosinophils % (A) 1 %; HCT 45.7 % (34.0-46.0); HGB 14.7 gm/dL (11.4-16.0); Lymphocytes # (A) 1.1 k/uL (1.0-4.8); Lymphocytes % (A) 8 %; MCHC 32.1 g/dL (31.0-37.0); Mean Platelet Volume 8.4; Monocytes # (A) 0.5 k/uL (0-1.0); Monocytes % (A) 3 %; Neutrophils # (A) 12.1 k/uL (1.3-7.7); Neutrophils % (A) 87 %; Platelet Count 266 k/uL (150-450); RBC 5.44 m/uL (3.80-5.40); RDW 13.6 % (11.5-15.5); WBC 13.9 k/uL (3.8-10.6)
[2023-01-01 07:17] LABS: AST 24 U/L (14-36); African American GFR (CKD) >90 (>60 ml/min/1.73 sqM); Albumin 4.2 g/dL (3.5-5.0); Alkaline Phosphatase 68 U/L (38-126); Blood Urea Nitrogen 16 mg/dL (7-17); Calcium 9.1 mg/dL (8.4-10.2); Carbon Dioxide 17 mmol/L (22-30); Glucose 176 mg/dL (74-99); Non-African American GFR(CKD) >90 (>60 ml/min/1.73 sqM); Total Bilirubin 0.5 mg/dL (0.2-1.3); Total Protein 7.3 g/dL (6.3-8.2)
--- NOTE | 2023-01-01 07:23 | XR ---
EXAMINATION TYPE: XR chest 2V DATE OF EXAM: 01/01/2023 7:01 AM CLINICAL INDICATION:Female, 87 years old with history of dizziness; PHH COMPARISON: Chest radiographs from 05/18/2017 TECHNIQUE: XR chest 2V Frontal and lateral views of the chest. FINDINGS: Lungs/Pleura: There is no evidence of pleural effusion, focal consolidation, or pneumothorax. Pulmonary vascularity: Unremarkable. Heart/mediastinum: Cardiomediastinal silhouette is enlarged and stable. Musculoskeletal: No acute osseous pathology. IMPRESSION: Low lung volumes with a generalized hazy appearance which could represent atelectasis versus pulmonar y edema correlate with serum BNP.
[2023-01-01 07:28] LABS: Potassium 3.7 mmol/L (3.5-5.1); Sodium 139 mmol/L (137-145)
--- NOTE | 2023-01-01 07:28 | CT ---
EXAMINATION TYPE: CT brain wo con CT DLP: 1100.4 mGycm, Automated exposure control for dose reduction was used. DATE OF EXAM: 01/01/2023 7:13 AM COMPARISON: 05/18/2017. CLINICAL INDICATION:Female, 87 years old with history of dizziness, Fall, dizziness TECHNIQUE: Brain: Axial CT images of the brain were obtained with coronal and sagittal reformats created and rev iewed. Contrast used: None. Oral contrast used: None. FINDINGS: Brain: Extra-axial spaces: No abnormal extra-axial fluid collections. Ventricular system: Dilatation in proportion to cerebral atrophy. Cerebral parenchyma: Cerebral atrophy. No acute intraparenchymal hemorrhage or mass effect. The posada -white junction is well differentiated. Scattered hypoattenuating areas are seen within the white mat ter. Cerebellum: Unremarkable. Mass effect: No evidence of midline shift. Intracranial vasculature: Atherosclerotic calcifications of the intracranial vessels. Soft tissues: Normal. Calvarium/osseous structures: No depressed skull fracture. Paranasal sinuses and mastoid air cells: Mild scattered paranasal sinus disease. Visualized orbits: Bilateral aphakia IMPRESSION: 1. No acute intracranial process. 2. Nonspecific white matter changes, likely secondary to chronic small vessel ischemic disease.
[2023-01-01 07:47] LABS: Chloride 109 mmol/L (98-107)
[2023-01-01 07:48] LABS: Anion Gap 13 mmol/L
[2023-01-01] MEDS ORDERED: hydrALAZINE HCL 20 MG/ML 1 ML VIAL IVP STA (08:05)
[2023-01-01 08:22] LABS: ALT 17 U/L (4-34)
[2023-01-01 09:20] LABS: Appearance,Urine Slightly Cloudy (Clear); Bacteria,Urine Moderate /hpf; Color,Urine Colorless; Mucus,Urine Rare /hpf; RBC,Urine 1 /hpf (0-5); WBC,Urine 10 /hpf (0-5)
[2023-01-01 09:21] LABS: Bilirubin,Urine Negative (Negative); Blood,Urine Negative (Negative); Glucose,Urine (UA) Negative (Negative); Ketones,Urine 1+ (Negative); Leukocyte Esterase,Urine Moderate (Negative); Nitrite,Urine Positive (Negative); Protein,Urine 1+ (Negative); Urobilinogen,Urine <2.0 mg/dL (<2.0)
[2023-01-01] MEDS ORDERED: ONDANSETRON 4 MG/2 ML VIAL IVP STA (09:21)
--- NOTE | 2023-01-01 10:22 | XR ---
EXAMINATION TYPE: XR sacrum coccyx DATE OF EXAM: 01/01/2023 10:17 AM INDICATION: Patient age:Female; 87 years old; Reason for study: pain, fall; PHH. COMPARISON: None TECHNIQUE: The sacrum/coccyx was evaluated in 3 projections. FINDINGS: Post surgical changes from bilateral total hip arthroplasty. Both SI joints appear intact. Degenerative changes of the lumbar spine. Grade 1 anterolisthesis of L4 on L5. No abnormal calcificat ions. No acute fracture or dislocation. Degenerative changes of the pubic symphysis. Atherosclerotic calcification of the aorta. IMPRESSION: No acute fracture.
[2023-01-01] MEDS ORDERED: NALOXONE 0.4 MG/ML 1 ML VIAL IV PRN (10:28)
--- NOTE | 2023-01-01 10:57 | CT ---
EXAMINATION TYPE: CT abdomen pelvis w con CT DLP: 851.5 mGycm, Automated exposure control for dose reduction was used. DATE OF EXAM: 01/01/2023 10:45 AM COMPARISON: None CLINICAL INDICATION:Female, 87 years old with history of left flank pain, ecchymosis, recent trama; R ecent trauma, ecchymosis, LT flank pain TECHNIQUE: Standard CT of the abdomen and pelvis following the administration of 100 cc of Isovue 3 00 IV contrast material. Coronal and sagittal reformats were performed. FINDINGS: LOWER CHEST: Posterior dependent subsegmental atelectasis is noted. Aortic valvular calcifications. M ild to moderate coronary artery calcifications. ABDOMEN LIVER: Left hepatic lobe 1.1 cm cyst with additional few subcentimeter hypodense foci which likely re present cysts. GALLBLADDER AND BILE DUCTS: Unremarkable. PANCREAS: Unremarkable. SPLEEN: Few scattered calcified granulomas. Benign cystic lesion with dystrophic calcification measur ing 1.5 cm. ADRENAL GLANDS: Indeterminate 1.2 cm right adrenal gland nodule. Thickening of the left adrenal gland .. KIDNEYS AND URETERS: No evidence of hydronephrosis. Subcentimeter left renal cysts. Nonobstructive bi lateral punctate renal calculi. Contrast is demonstrated within both collecting systems on the delaye d phase. PELVIS BLADDER: Not visualized due to streak artifact hip prosthesis. REPRODUCTIVE: Not visualized due to streak artifact hip prosthesis. ABDOMEN & PELVIS STOMACH AND BOWEL: Small hiatal hernia. Diverticulum involving the second/third portion of the duoden um. Pancolonic diverticulosis without evidence for acute diverticulitis. No evidence of bowel obstruc tion. PERITONEUM: No evidence of pneumoperitoneum or free fluid. VASCULATURE: Moderate atherosclerotic calcifications are present throughout the abdominal aorta and i ts branches. No evidence of aortic aneurysm. MUSCULOSKELETAL: No acute osseous abnormalities. Moderate disc degeneration changes are present throu ghout the thoracolumbar spine.. Grade 1 anterolisthesis of L4 on L5 without evidence of pars defects. Postsurgical changes from bilateral total hip arthroplasty. LYMPH NODES: No gross evidence for lymphadenopathy. SOFT TISSUE/ABDOMINAL WALL: Bilateral fat filled inguinal hernias with right greater the left. Tiny f at filled umbilical hernia. No organized fluid collection. No evidence for significant hematoma. IMPRESSION: 1. No acute traumatic process within the abdomen and pelvis. 2. Colonic diverticulosis without evidence for acute diverticulitis. 3. Nonobstructive bilateral calculi. 4. Indeterminate right adrenal gland 1.2 cm nodule. Probably benign. Consider 12 month follow-up adre nal CT. 5. Sequelae of prior granulomatous disease.
[2023-01-01] MEDS: LIDOCAINE 5% PATCH TOPICAL SCH (11:59)
[2023-01-01] MEDS: SODIUM CHLORIDE 0.9% 1,000 ML IV SCH ×2 (12:00→17:36)
[2023-01-01] MEDS ORDERED: CALCIUM CARBONATE 500 MG CHEWABLE PO PRN (12:54)
[2023-01-01] MEDS ORDERED: MELATONIN 3 MG TABLET PO PRN (12:54)
[2023-01-01] MEDS ORDERED: DEXTROSE 50% SYRINGE 50 ML IVP PRN ×2 (13:03)
--- NOTE | 2023-01-01 13:06 | P.HPIM ---
History of Present Illness H&P Date: 01/01/23 Chief Complaint: Confusion, falls * 87-year-old lady with past medical history significant for hypertension, dyslipidemia, gastroesophageal reflux disease, hypothyroid, TIA, presents to the emergency department with complaints of worsening confusion and fall at home * Patient was accompanied with son who assisted with history taking. Patient has been having generalized weakness feeling dizzy and not feeling herself for the last 48 hours. Per son patient had a fall at home however she did not want to come to the emergency. Today son called EMS due to worsening confusio n * Workup initiated in ER included CBC which showed WBC count of 13.9 hemoglobin of 14.7 platelet count of 266, serum chemistry sodium 139 potassium 3.7 BUN 16 creatinine 0.38 * CT head obtained negative for acute intracranial process, chronic ischemic changes noted * Urinalysis is obtained showed WBC, moderate bacteria nitrite positive leukocyte esterase positive secondary to ongoing confusion patient was started on IV antibiotics and IV fluids REVIEW OF SYSTEMS: Weakness, falls, confusion CONSTITUTIONAL: No fever, no malaise, no fatigue. HEENT: No recent visual problems or hearing problems. Denied any sore throat. CARDIOVASCULAR: No chest pain, orthopnea, PND, no palpitations, no syncope. PULMONARY: No shortness of breath, no cough, no hemoptysis. GASTROINTESTINAL: No diarrhea, no nausea, no vomiting, no abdominal pain. NEUROLOGICAL: No headaches, no weakness, no numbness. HEMATOLOGICAL: Denies any bleeding or petechiae. GENITOURINARY: Denies any burning micturition, frequency, or urgency. MUSCULOSKELETAL/RHEUMATOLOGICAL: Denies any joint pain, swelling, or any muscle pain. ENDOCRINE: Denies any polyuria or polydipsia. PHYSICAL EXAMINATION: GENERAL: The patient is alert and oriented x 2 , ill appearance, nontoxic HEENT: Pupils are round and equally reacting to light. EOMI. CARDIOVASCULAR: S1 and S2 present. No murmurs, rubs, or gallops. PULMONARY: Chest is clear to auscultation, no wheezing or crackles. ABDOMEN: Soft, nontender, nondistended, normoactive bowel sounds. No palpable organomegaly. MUSCULOSKELETAL: No joint swelling or deformity. EXTREMITIES: No cyanosis, clubbing, or pedal edema. NEUROLOGICAL: Gross neurological examination did not reveal any focal deficits. 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 History of Any Multi-Drug Resistant Organisms: None Reported Past Surgical History: Adenoidectomy, Hysterectomy, Joint Replacement, Tonsillectomy Additional Past Surgical History / Comment(s): Bilateral hip replacement, partial hysterectomy, bilateral cataracts removed with lens implants. Past Anesthesia/Blood Transfusion Reactions: No Reported Reaction Past Psychological History: Anxiety Smoking Status: Former smoker Past Alcohol Use History: Daily Past Drug Use History: None Reported - Past Family History Father Family Medical History: Myocardial Infarction ([place]) Additional Family Medical History / Comment(s): Father of a [place] at the age of 63yrs. Mother Family Medical History: Coronary Artery Disease (CAD), Dementia Additional Family Medical History / Comment(s): Mother at the age of 82 yrs. Sister(s) Family Medical History: No Reported History Son(s) Family Medical History: No Reported History Daughter(s) Family Medical History: No Reported History Medications and Allergies Home Medications Medication Instructions Recorded Confirmed Type Levothyroxine Sodium [Synthroid] 50 mcg PO DAILY 04/09/14 01/01/23 History amLODIPine BESYLATE/BENAZEPRIL 1 cap PO BID 04/09/14 01/01/23 History [Lotrel 5-20 MG] Aspirin EC [Ecotrin Low Dose] 81 mg PO DAILY 07/06/22 01/01/23 History hydrALAZINE HCL [Apresoline] 50 mg PO BID-W/MEALS 07/06/22 01/01/23 History metFORMIN HCL 500 mg PO BID 07/06/22 01/01/23 History Glucosamine/Chondr Gonzalez A Sod [Osteo 2 tab PO DAILY 01/01/23 01/01/23 History Bi-Flex Caplet] Rosuvastatin [Crestor] 10 mg PO DAILY 01/01/23 01/01/23 History hydrALAZINE HCL [Apresoline] 50 mg PO DAILY PRN 01/01/23 01/01/23 History Allergies Allergy/AdvReac Type Severity Reaction Status Date / Time tetanus and diphtheria Allergy Unknown Verified 01/01/23 08:01 toxoids Childhood [tetanus & diphtheria toxoids] Physical Exam Vitals: Vital Signs Temp Pulse Resp BP Pulse Ox 01/01/23 10:41 99.3 F 90 18 146/61 97 01/01/23 09:51 75 18 133/65 97 01/01/23 09:15 77 18 117/82 99 01/01/23 08:28 75 18 180/105 98 01/01/23 06:39 97 18 200/97 97 Intake and Output 12/31/22 01/01/23 01/01/23 22:59 06:59 14:59 Other: Weight 66.224 kg Results CBC & Chem 7: 01/01/23 06:47 01/01/23 06:47 Labs: Abnormal Lab Results - Last 24 Hours (Table) 01/01/23 01/01/23 01/01/23 Range/Units 06:47 06:47 06:47 WBC 13.9 H (3.8-10.6) k/uL RBC 5.44 H (3.80-5.40) m/uL Neutrophils # 12.1 H (1.3-7.7) k/uL Chloride 109 H (98-107) mmol/L Carbon Dioxide 17 L (22-30) mmol/L Creatinine 0.38 L (0.52-1.04) mg/dL Glucose 176 H (74-99) mg/dL Urine Appearance Slightly Cloudy H (Clear) Urine Nitrite Positive H (Negative) Urine WBC 10 H (0-5) /hpf Urine Bacteria Moderate H (None) /hpf Urine Mucus Rare H (None) /hpf Assessment and Plan Assessment: Assessment and plan Acute encephalopathy secondary to urinary tract infection Acute cystitis History of hypertension History of TIA History of dyslipidemia * In regards to acute encephalopathy, mentation has improved with hydration pa andres is alert to person and situation, son at bedside. CT had negative continue management for unit tract infection maintain delirium precautions * In regards to hypertension home medications reviewed and reconciled continue hydralazine, continue amlodipine * In regards to diabetes continue patient on correctional insulin, Accu-Cheks before meals at bedtime metformin on hold * In regards to history of TIA aspirin and Crestor * CODE STATUS is full code Time with Patient: Greater than 30
[2023-01-01] MEDS: LEVOTHYROXINE 50 MCG TAB PO SCH (14:41)
[2023-01-01 17:30] LABS: Glucose,Whole Blood 128 mg/dL (70-110)
[2023-01-01] MEDS: INSULIN ASPART (NovoLOG) 100 UNIT/ML VIAL SQ SCH ×2 (17:30→20:57)
[2023-01-01] MEDS: hydrALAZINE HCL 50 MG TAB PO SCH (17:33)
[2023-01-01] MEDS: traMADol 50 MG TAB PO PRN (17:51)
[2023-01-01 19:43] LABS: Glucose,Whole Blood 127 mg/dL (70-110)
[2023-01-01] MEDS: lisinopriL 20 MG TAB PO SCH (21:01)
[2023-01-01] MEDS: amLODIPine 5 MG TAB PO SCH (21:01)
[2023-01-02] MEDS: SODIUM CHLORIDE 0.9% 1,000 ML IV SCH ×3 (02:29→17:34)
[2023-01-02 06:41] LABS: Glucose,Whole Blood 133 mg/dL (70-110)
[2023-01-02] MEDS: INSULIN ASPART (NovoLOG) 100 UNIT/ML VIAL SQ SCH ×4 (06:49→20:41)
[2023-01-02] MEDS: LEVOTHYROXINE 50 MCG TAB PO SCH (06:59)
[2023-01-02] MEDS: hydrALAZINE HCL 50 MG TAB PO SCH ×2 (06:59→17:35)
--- NOTE | 2023-01-02 08:36 | CDI ---
Documentation Clarification Form Date: 01/02/2023 08:27:33 AM From: Sarah Esqueda RN CCDS Phone: [phone] Admit Date: 01/01/2023 12:57:00 PM Patient Name: Nina Soto Visit Number: [id number] Discharge Date: ATTENTION: The Clinical Documentation Specialists (CDI) and [facility] Coding Staff appreciate your assistance in clarifying documentation. Please respond to the clarification below the line at the bottom and electronically sign. The CDI & [facility] Coding staff will review the response and follow-up if needed. Please note: Queries are made part of the Legal Health Record. If you have any questions, please contact the author of this message via ITS. Dr. Mohan Encephalopathy is documented 01/01, H&P. Additional clarification regarding the type of encephalopathy is requested. History/Risk Factors: 87-year-old female presents to the ED generalized weakness feeling dizzy and not feeling herself for 48 hours, son called EMS due to worsening confusion. Medical History: DM2, HTN and HLD. Clinical Indicators: Labs: 01/01 Wbc 13.9 Urine: 01/01 Slightly cloudy, Nitrate positive, Leukocyte Esterase Moderate, Wbc 10, Bacteria moderate CT Brain: 01/01 Nonspecific white matter changes, likely secondary to chronic small vessel ischemic disease. Treatment: 01/01 Ceftriaxone ivpb x 1; 0.9NS 500cc IV bolus; 01/02 Ceftriaxone ivpb q24hr Please clarify the type of encephalopathy, if known: [ x ] Metabolic Encephalopathy [ ] Other, please specify [ ] Unable to determine (Template Last Revised: May 2020) MTDD
[2023-01-02] MEDS: lisinopriL 20 MG TAB PO SCH ×2 (09:17→20:41)
[2023-01-02] MEDS: amLODIPine 5 MG TAB PO SCH ×2 (09:18→20:41)
[2023-01-02] MEDS: ASPIRIN 81 MG PO SCH (09:18)
[2023-01-02] MEDS: ATORVASTATIN 20 MG TAB PO SCH (09:18)
[2023-01-02] MEDS: ACETAMINOPHEN TAB 325 MG TAB PO PRN (09:18)
[2023-01-02] MEDS: ENOXAPARIN 40 MG/0.4 ML SYRINGE SQ SCH (09:20)
[2023-01-02] MEDS: LIDOCAINE 5% PATCH TOPICAL SCH (09:43)
[2023-01-02 11:02] LABS: Basophils # (A) 0.08 X 10*3/uL (0.00-0.10); Basophils % (A) 0.8 %; Eosinophils # (A) 0.06 X 10*3/uL (0.04-0.35); Eosinophils % (A) 0.6 %; HCT 40.6 % (37.2-46.3); HGB 12.7 d/dL (12.0-15.0); Lymphocytes # (A) 1.75 X 10*3/uL (0.90-5.00); Lymphocytes % (A) 17.6 %; MCH 26.7 pg (27.0-32.0); MCHC 31.3 d/dL (32.0-37.0); MCV 85.3 FL (80.0-97.0); Mean Platelet Volume 11.3 FL (9.5-12.2); Monocytes # (A) 0.79 X 10*3/uL (0.20-1.00); Monocytes % (A) 7.9 %; NRBC Per 100 WBC 0 X 10*3/uL (0.00-0.01); Neutrophils # (A) 7.23 X 10*3/uL (1.80-7.70); Neutrophils % (A) 72.6 %; Platelet Count 270 X 10*3/uL (140-440); RBC 4.76 X 10*6/uL (4.10-5.20); RDW 13.9 % (11.5-14.5); WBC 9.96 X 10*3/uL (4.50-10.00)
[2023-01-02 11:32] LABS: Glucose,Whole Blood 172 mg/dL (70-110)
[2023-01-02 11:32] LABS: BUN/Creat Ratio 18.67 Ratio (12.00-20.00); Blood Urea Nitrogen 11.2 mg/dL (9.0-27.0); Calcium 8.8 mg/dL (8.7-10.3); Carbon Dioxide 31.8 mmol/L (21.6-31.8); Chloride 107 mmol/L (96-109); Glucose 131 mg/dL (70-110); Potassium 3.9 mmol/L (3.5-5.5); Sodium 143 mmol/L (135-145)
[2023-01-02 12:43] LABS: Bacteria,Urine Rare /hpf; Hyaline Casts,Urine 1 /lpf (0-2); Mucus,Urine Rare /hpf; RBC,Urine 2 /hpf (0-5); Squamous Epithelial Cell,Urine <1 /hpf (0-4); WBC,Urine 12 /hpf (0-5)
[2023-01-02 13:20] LABS: Appearance,Urine Clear (Clear); Color,Urine Yellow; PH, Urine 5.5 (5.0-8.0); Protein,Urine Negative (Negative); Specific Gravity,Urine 1.015 (1.001-1.035)
[2023-01-02 13:21] LABS: Bilirubin,Urine Negative (Negative); Blood,Urine Negative (Negative); Glucose,Urine (UA) Negative (Negative); Ketones,Urine Negative (Negative); Nitrite,Urine Negative (Negative); Urobilinogen,Urine <2.0 mg/dL (<2.0)
[2023-01-02 13:22] LABS: Leukocyte Esterase,Urine Moderate (Negative)
--- NOTE | 2023-01-02 15:11 | P.PN ---
Subjective Progress Note Date: 01/02/23 * 87-year-old lady with past medical history significant for hypertension, dyslipidemia, gastroesophageal reflux disease, hypothyroid, TIA, presents to the emergency department with complaints of worsening confusion and fall at home * Patient was accompanied with son who assisted with history taking. Patient has been having generalized weakness feeling dizzy and not feeling herself for the last 48 hours. Per son patient had a fall at home however she did not want to come to the emergency. Today son called EMS due to worsening confusion * Workup initiated in ER included CBC which showed WBC count of 13.9 hemoglobin of 14.7 platelet count of 266, serum chemistry sodium 139 potassium 3.7 BUN 16 creatinine 0.38 * CT head obtained negative for acute intracranial process, chronic ischemic changes noted * Urinalysis is obtained showed WBC, moderate bacteria nitrite positive leukocyte esterase positive secondary to ongoing confusion patient was started on IV antibiotics and IV fluids 01/02. Patient seen and examined. Vital signs this morning temperature 90.5, heart rate 76, respiration 18, blood pressure 152/61. WBC 9.96, hemoglobin 12.7. Patient son at the bedside, denies any lightheadedness or dizziness. States she feels much better. REVIEW OF SYSTEMS: CONSTITUTIONAL: No fever, no malaise,. CARDIOVASCULAR: No chest pain, no palpitations, no syncope. PULMONARY: No shortness of breath, no cough, GASTROINTESTINAL: No diarrhea, no nausea, no vomiting, no abdominal pain. NEUROLOGICAL: No headaches, no weakness, PHYSICAL EXAMINATION: GENERAL: The patient is alert and oriented x3, not in any acute distress. Well developed, well nourished. HEENT: Pupils are round and equally reacting to light. EOMI. No scleral icterus. No conjunctival pallor. Normocephalic, atraumatic. No pharyngeal erythema. No thyromegaly. CARDIOVASCULAR: S1 and S2 present. No murmurs, rubs, or gallops. PULMONARY: Chest is clear to auscultation, no wheezing or crackles. ABDOMEN: Soft, nontender, nondistended, normoactive bowel sounds. No palpable organomegaly. MUSCULOSKELETAL: No joint swelling or deformity. EXTREMITIES: No cyanosis, clubbing, or pedal edema. NEUROLOGICAL: Gross neurological examination did not reveal any focal deficits. SKIN: No rashes. Assessment and plan Acute encephalopathy secondary to urinary tract infection Acute cystitis History of hypertension History of TIA History of dyslipidemia * In regards to acute encephalopathy, mentation has improved . CT head negative .continue management for unit tract infection maintain delirium precautions * In regards to hypertension,continue hydralazine, continue amlodipine * In regards to diabetes, continue patient on correctional insulin, Accu-Cheks before meals at bedtime metformin on hold * In regards to history of TIA, continue aspirin and Crestor Labs and medication were reviewed.. Continue same treatment. Continue with symptomatic treatment. Resume home medication. Monitor labs and vitals. DVT and GI prophylaxis. Further recommendations as per clinical course of the patient Dictation was produced using [employer] dictation software. please excuse any gr ammatical, word or spelling errors. Objective - Vital Signs Vital signs: Vital Signs Temp 98.5 F 01/02/23 07:58 Pulse 76 01/02/23 07:58 Resp 18 01/02/23 07:58 BP 152/61 01/02/23 07:58 Pulse Ox 94 L 01/02/23 07:58 FiO2 Intake & Output 01/01/23 01/02/23 01/02/23 18:59 06:59 18:59 Weight 66.224 kg Other: Voiding Method Toilet # Voids 1 - Labs CBC & Chem 7: 01/02/23 06:47 01/02/23 06:47 Labs: Abnormal Lab Results - Last 24 Hours (Table) 01/01/23 01/01/23 01/02/23 Range/Units 17:28 19:40 06:39 POC Glucose (mg/dL) 128 H 127 H 133 H (70-110) mg/dL
[2023-01-02 16:49] LABS: Glucose,Whole Blood 168 mg/dL (70-110)
[2023-01-02 19:39] LABS: Glucose,Whole Blood 202 mg/dL (70-110)
[2023-01-02] MEDS: traMADol 50 MG TAB PO PRN (20:42)
[2023-01-03] MEDS: SODIUM CHLORIDE 0.9% 1,000 ML IV SCH ×2 (01:07→09:22)
[2023-01-03 06:05] LABS: Glucose,Whole Blood 133 mg/dL (70-110)
[2023-01-03] MEDS: INSULIN ASPART (NovoLOG) 100 UNIT/ML VIAL SQ SCH ×4 (06:26→20:40)
[2023-01-03] MEDS: LEVOTHYROXINE 50 MCG TAB PO SCH (06:41)
[2023-01-03] MEDS: hydrALAZINE HCL 50 MG TAB PO SCH ×2 (06:41→17:28)
[2023-01-03] MEDS: amLODIPine 5 MG TAB PO SCH ×2 (09:22→20:52)
[2023-01-03] MEDS: lisinopriL 20 MG TAB PO SCH ×2 (09:22→20:53)
[2023-01-03] MEDS: ATORVASTATIN 20 MG TAB PO SCH (09:22)
[2023-01-03] MEDS: ENOXAPARIN 40 MG/0.4 ML SYRINGE SQ SCH (09:22)
[2023-01-03] MEDS: ASPIRIN 81 MG PO SCH (09:22)
[2023-01-03] MEDS: LIDOCAINE 5% PATCH TOPICAL SCH (09:23)
[2023-01-03 11:55] LABS: Glucose,Whole Blood 145 mg/dL (70-110)
--- NOTE | 2023-01-03 14:13 | P.PN ---
Subjective Progress Note Date: 01/03/23 * 87-year-old lady with past medical history significant for hypertension, dyslipidemia, gastroesophageal reflux disease, hypothyroid, TIA, presents to the emergency department with complaints of worsening confusion and fall at home * Patient was accompanied with son who assisted with history taking. Patient has been having generalized weakness feeling dizzy and not feeling herself for the last 48 hours. Per son patient had a fall at home however she did not want to come to the emergency. Today son called EMS due to worsening confusion * Workup initiated in ER included CBC which showed WBC count of 13.9 hemoglobin of 14.7 platelet count of 266, serum chemistry sodium 139 potassium 3.7 BUN 16 creatinine 0.38 * CT head obtained negative for acute intracranial process, chronic ischemic changes noted * Urinalysis is obtained showed WBC, moderate bacteria nitrite positive leukocyte esterase positive secondary to ongoing confusion patient was started on IV antibiotics and IV fluids 01/02. Patient seen and examined. Vital signs this morning temperature 90.5, heart rate 76, respiration 18, blood pressure 152/61. WBC 9.96, hemoglobin 12.7. Patient son at the bedside, denies any lightheadedness or dizziness. States she feels much better. 01/03. Patient seen and examined. States she's feeling more tired compared to yesterday. Denies any lightheadedness or dizziness. Keen to go to rehab REVIEW OF SYSTEMS: CONSTITUTIONAL: No fever, no malaise,. CARDIOVASCULAR: No chest pain, no palpitations, no syncope. PULMONARY: No shortness of breath, no cough, GASTROINTESTINAL: No diarrhea, no nausea, no vomiting, no abdominal pain. NEUROLOGICAL: No headaches, no weakness, PHYSICAL EXAMINATION: GENERAL: The patient is alert and oriented x3, not in any acute distress. Well developed, well nourished. HEENT: Pupils are round and equally reacting to light. EOMI. No scleral icterus. No conjunctival pallor. Normocephalic, atraumatic. No pharyngeal erythema. No thyromegaly. CARDIOVASCULAR: S1 and S2 present. No murmurs, rubs, or gallops. PULMONARY: Chest is clear to auscultation, no wheezing or crackles. ABDOMEN: Soft, nontender, nondistended, normoactive bowel sounds. No palpable organomegaly. MUSCULOSKELETAL: No joint swelling or deformity. EXTREMITIES: No cyanosis, clubbing, or pedal edema. NEUROLOGICAL: Gross neurological examination did not reveal any focal deficits. SKIN: No rashes. Assessment and plan Acute encephalopathy secondary to urinary tract infection Acute cystitis History of hypertension History of TIA History of dyslipidemia * In regards to acute encephalopathy, mentation has improved . CT head negative .continue management for urinary tract infection maintain delirium precautions * In regards for UTI, continue IV Rocephin * In regards to hypertension,continue hydralazine, continue amlodipine * In regards to diabetes, continue patient on correctional insulin, Accu-Cheks before meals at bedtime metformin on hold * In regards to history of TIA, continue aspirin and Crestor Labs and medication were reviewed.. Continue same treatment. Continue with symptomatic treatment. Resume home medication. Monitor labs and vitals. DVT and GI prophylaxis. Further recommendations as per clinical course of the patient Dictation was produced using [employer] dictation software. please excuse any gr ammatical, word or spelling errors. Objective - Vital Signs Vital signs: Vital Signs Temp 98.3 F 01/03/23 07:07 Pulse 72 01/03/23 07:07 Resp 18 01/03/23 07:07 BP 165/68 01/03/23 07:07 Pulse Ox 94 L 01/03/23 07:07 FiO2 Intake & Output 01/02/23 01/03/23 01/03/23 18:59 06:59 18:59 Intake Total 240 Balance 240 Intake: Oral 240 Other: Voiding Method Toilet Toilet # Voids 3 2 - Labs CBC & Chem 7: 01/02/23 06:47 01/02/23 06:47 Labs: Abnormal Lab Results - Last 24 Hours (Table) 01/02/23 01/02/23 01/03/23 Range/Units 16:44 19:37 05:55 POC Glucose (mg/dL) 168 H 202 H 133 H (70-110) mg/dL 01/03/23 Range/Units 11:39 POC Glucose (mg/dL) 145 H (70-110) mg/dL Microbiology - Last 24 Hours (Table) 01/01/23 10:50 Blood Culture - Preliminary Blood 01/01/23 11:05 Blood Culture - Preliminary Blood
[2023-01-03 16:50] LABS: Glucose,Whole Blood 154 mg/dL (70-110)
[2023-01-03 20:19] LABS: Glucose,Whole Blood 150 mg/dL (70-110)
[2023-01-04 06:18] LABS: Glucose,Whole Blood 133 mg/dL (70-110)
[2023-01-04] MEDS: INSULIN ASPART (NovoLOG) 100 UNIT/ML VIAL SQ SCH ×4 (06:40→21:27)
[2023-01-04] MEDS: LEVOTHYROXINE 50 MCG TAB PO SCH (06:40)
[2023-01-04] MEDS: hydrALAZINE HCL 50 MG TAB PO SCH ×2 (06:40→17:23)
[2023-01-04] MEDS: lisinopriL 20 MG TAB PO SCH ×2 (08:23→21:26)
[2023-01-04] MEDS: LIDOCAINE 5% PATCH TOPICAL SCH (08:23)
[2023-01-04] MEDS: amLODIPine 5 MG TAB PO SCH ×2 (08:23→21:26)
[2023-01-04] MEDS: ATORVASTATIN 20 MG TAB PO SCH (08:23)
[2023-01-04] MEDS: ASPIRIN 81 MG PO SCH (08:23)
[2023-01-04] MEDS: ENOXAPARIN 40 MG/0.4 ML SYRINGE SQ SCH (08:23)
[2023-01-04 09:41] LABS: ALT 12 U/L (8-44); AST 12 U/L (13-35); Albumin 3.7 d/dL (3.8-4.9); Albumin/Globulin Ratio 1.61 Ratio (1.60-3.17); Alkaline Phosphatase 53 U/L (41-126); BUN/Creat Ratio 16.75 Ratio (12.00-20.00); Blood Urea Nitrogen 6.7 mg/dL (9.0-27.0); Calcium 8.9 mg/dL (8.7-10.3); Carbon Dioxide 23.5 mmol/L (21.6-31.8); Chloride 108 mmol/L (96-109); Globulin 2.3 d/dL (1.6-3.3); Glucose 135 mg/dL (70-110); Potassium 3.3 mmol/L (3.5-5.5); Sodium 144 mmol/L (135-145); Total Bilirubin 0.4 mg/dL (0.3-1.2)
[2023-01-04 09:43] LABS: HCT 37.2 % (37.2-46.3); HGB 12.2 d/dL (12.0-15.0); MCH 27.2 pg (27.0-32.0); MCHC 32.8 d/dL (32.0-37.0); Mean Platelet Volume 11.7 FL (9.5-12.2); NRBC Per 100 WBC 0 X 10*3/uL (0.00-0.01); Platelet Count 239 X 10*3/uL (140-440); RBC 4.48 X 10*6/uL (4.10-5.20); RDW 13.7 % (11.5-14.5)
[2023-01-04 11:55] LABS: Glucose,Whole Blood 136 mg/dL (70-110)
--- NOTE | 2023-01-04 14:31 | P.PN ---
Subjective Progress Note Date: 01/04/23 * 87-year-old lady with past medical history significant for hypertension, dyslipidemia, gastroesophageal reflux disease, hypothyroid, TIA, presents to the emergency department with complaints of worsening confusion and fall at home * Patient was accompanied with son who assisted with history taking. Patient has been having generalized weakness feeling dizzy and not feeling herself for the last 48 hours. Per son patient had a fall at home however she did not want to come to the emergency. Today son called EMS due to worsening confusion * Workup initiated in ER included CBC which showed WBC count of 13.9 hemoglobin of 14.7 platelet count of 266, serum chemistry sodium 139 potassium 3.7 BUN 16 creatinine 0.38 * CT head obtained negative for acute intracranial process, chronic ischemic changes noted * Urinalysis is obtained showed WBC, moderate bacteria nitrite positive leukocyte esterase positive secondary to ongoing confusion patient was started on IV antibiotics and IV fluids 01/02. Patient seen and examined. Vital signs this morning temperature 90.5, heart rate 76, respiration 18, blood pressure 152/61. WBC 9.96, hemoglobin 12.7. Patient son at the bedside, denies any lightheadedness or dizziness. States she feels much better. 01/03. Patient seen and examined. States she's feeling more tired compared to yesterday. Denies any lightheadedness or dizziness. Keen to go to rehab 01/04. Patient seen and examined. Sitting upright in the chair, states she f eels much better. Denies any confusion. Denies any fever or chills. Lab work WBC 8.3, hemoglobin 12.2, sodium 144, potassium 3.3, BUN 6.7, creatinine 0.4 REVIEW OF SYSTEMS: CONSTITUTIONAL: No fever, no malaise,. CARDIOVASCULAR: No chest pain, no palpitations, no syncope. PULMONARY: No shortness of breath, no cough, GASTROINTESTINAL: No diarrhea, no nausea, no vomiting, no abdominal pain. NEUROLOGICAL: No headaches, no weakness, PHYSICAL EXAMINATION: GENERAL: The patient is alert and oriented x3, not in any acute distress. Well developed, well nourished. HEENT: Pupils are round and equally reacting to light. EOMI. No scleral icterus. No conjunctival pallor. Normocephalic, atraumatic. No pharyngeal erythema. No thyromegaly. CARDIOVASCULAR: S1 and S2 present. No murmurs, rubs, or gallops. PULMONARY: Chest is clear to auscultation, no wheezing or crackles. ABDOMEN: Soft, nontender, nondistended, normoactive bowel sounds. No palpable organomegaly. MUSCULOSKELETAL: No joint swelling or deformity. EXTREMITIES: No cyanosis, clubbing, or pedal edema. NEUROLOGICAL: Gross neurological examination did not reveal any focal deficits. SKIN: No rashes. Assessment and plan Acute encephalopathy secondary to urinary tract infection Acute cystitis History of hypertension History of TIA History of dyslipidemia * In regards to acute encephalopathy, mentation has improved . CT head negative .continue management for urinary tract infection maintain delirium precautions * In regards for UTI, continue IV Rocephin, PT and OT following * In regards to hypertension,continue hydralazine, continue amlodipine * In regards to diabetes, continue patient on correctional insulin, Accu-Cheks before meals at bedtime metformin on hold * In regards to history of TIA, continue aspirin and Crestor Labs and medication were reviewed.. Continue same treatment. Continue with symptomatic treatment. Resume home medication. Monitor labs and vitals. DVT and GI prophylaxis. Further recommendations as per clinical course of the patient Dictation was produced using [employer] dictation software. please excuse any grammatical, word or spelling errors. Objective - Vital Signs Vital signs: Vital Signs Temp 98.6 F 01/04/23 07:00 Pulse 53 L 01/04/23 07:00 Resp 17 01/04/23 07:00 BP 142/63 01/04/23 07:00 Pulse Ox 94 L 01/04/23 07:00 FiO2 Intake & Output 01/03/23 01/04/23 01/04/23 18:59 06:59 18:59 Other: # Voids 5 3 - Labs CBC & Chem 7: 01/04/23 05:37 01/04/23 05:37 Labs: Abnormal Lab Results - Last 24 Hours (Table) 01/03/23 01/03/23 01/04/23 Range/Units 16:48 20:18 05:37 Potassium 3.3 L (3.5-5.5) mmol/L Anion Gap 12.50 H (4.00-12.00) mmol/L BUN 6.7 L (9.0-27.0) mg/dL Creatinine 0.4 L (0.6-1.5) mg/dL Glucose 135 H (70-110) mg/dL POC Glucose (mg/dL) 154 H 150 H (70-110) mg/dL AST 12 L (13-35) U/L Total Protein 6.0 L (6.2-8.2) d/dL Albumin 3.7 L (3.8-4.9) d/dL 01/04/23 01/04/23 Range/Units 06:11 11:52 Potassium (3.5-5.5) mmol/L Anion Gap (4.00-12.00) mmol/L BUN (9.0-27.0) mg/dL Creatinine (0.6-1.5) mg/dL Glucose (70-110) mg/dL POC Glucose (mg/dL) 133 H 136 H (70-110) mg/dL AST (13-35) U/L Total Protein (6.2-8.2) d/dL Albumin (3.8-4.9) d/dL Microbiology - Last 24 Hours (Table) 01/02/23 10:05 Urine Culture - Final Urine,Voided 01/01/23 10:50 Blood Culture - Preliminary Blood 01/01/23 11:05 Blood Culture - Preliminary Blood
[2023-01-04 16:59] LABS: Glucose,Whole Blood 154 mg/dL (70-110)
[2023-01-04 19:53] LABS: Glucose,Whole Blood 248 mg/dL (70-110)
[2023-01-05 06:15] LABS: Glucose,Whole Blood 134 mg/dL (70-110)
[2023-01-05] MEDS: INSULIN ASPART (NovoLOG) 100 UNIT/ML VIAL SQ SCH ×4 (06:18→20:40)
[2023-01-05] MEDS: hydrALAZINE HCL 50 MG TAB PO SCH ×2 (06:32→17:45)
[2023-01-05] MEDS: LEVOTHYROXINE 50 MCG TAB PO SCH (06:32)
[2023-01-05] MEDS: LIDOCAINE 5% PATCH TOPICAL SCH (09:35)
[2023-01-05] MEDS: ENOXAPARIN 40 MG/0.4 ML SYRINGE SQ SCH (09:35)
[2023-01-05] MEDS: ASPIRIN 81 MG PO SCH (09:35)
[2023-01-05] MEDS: lisinopriL 20 MG TAB PO SCH ×2 (09:35→20:40)
[2023-01-05] MEDS: ACETAMINOPHEN TAB 325 MG TAB PO PRN (09:35)
[2023-01-05] MEDS: ATORVASTATIN 20 MG TAB PO SCH (09:35)
[2023-01-05] MEDS: amLODIPine 5 MG TAB PO SCH ×2 (09:35→20:40)
[2023-01-05 11:48] LABS: Glucose,Whole Blood 175 mg/dL (70-110)
--- NOTE | 2023-01-05 13:20 | P.PN ---
Subjective Progress Note Date: 01/05/23 * 87-year-old lady with past medical history significant for hypertension, dyslipidemia, gastroesophageal reflux disease, hypothyroid, TIA, presents to the emergency department with complaints of worsening confusion and fall at home * Patient was accompanied with son who assisted with history taking. Patient has been having generalized weakness feeling dizzy and not feeling herself for the last 48 hours. Per son patient had a fall at home however she did not want to come to the emergency. Today son called EMS due to worsening confusion * Workup initiated in ER included CBC which showed WBC count of 13.9 hemoglobin of 14.7 platelet count of 266, serum chemistry sodium 139 potassium 3.7 BUN 16 creatinine 0.38 * CT head obtained negative for acute intracranial process, chronic ischemic changes noted * Urinalysis is obtained showed WBC, moderate bacteria nitrite positive leukocyte esterase positive secondary to ongoing confusion patient was started on IV antibiotics and IV fluids 01/02. Patient seen and examined. Vital signs this morning temperature 90.5, heart rate 76, respiration 18, blood pressure 152/61. WBC 9.96, hemoglobin 12.7. Patient son at the bedside, denies any lightheadedness or dizziness. States she feels much better. 01/03. Patient seen and examined. States she's feeling more tired compared to yesterday. Denies any lightheadedness or dizziness. Keen to go to rehab 01/04. Patient seen and examined. Sitting upright in the chair, states she f eels much better. Denies any confusion. Denies any fever or chills. Lab work WBC 8.3, hemoglobin 12.2, sodium 144, potassium 3.3, BUN 6.7, creatinine 0.4 01/05. Patient seen and examined. Work with physical therapy, they recommended rehab. States she feels little stronger. Vital signs stable REVIEW OF SYSTEMS: CONSTITUTIONAL: No fever, no malaise,. CARDIOVASCULAR: No chest pain, no palpitations, no syncope. PULMONARY: No shortness of breath, no cough, GASTROINTESTINAL: No diarrhea, no nausea, no vomiting, no abdominal pain. NEUROLOGICAL: No headaches, no weakness, PHYSICAL EXAMINATION: GENERAL: The patient is alert and oriented x3, not in any acute distress. Well developed, well nourished. HEENT: Pupils are round and equally reacting to light. EOMI. No scleral icterus. No conjunctival pallor. Normocephalic, atraumatic. No pharyngeal erythema. No thyromegaly. CARDIOVASCULAR: S1 and S2 present. No murmurs, rubs, or gallops. PULMONARY: Chest is clear to auscultation, no wheezing or crackles. ABDOMEN: Soft, nontender, nondistended, normoactive bowel sounds. No palpable organomegaly. MUSCULOSKELETAL: No joint swelling or deformity. EXTREMITIES: No cyanosis, clubbing, or pedal edema. NEUROLOGICAL: Gross neurological examination did not reveal any focal deficits. SKIN: No rashes. Assessment and plan Acute encephalopathy secondary to urinary tract infection Acute cystitis History of hypertension History of TIA History of dyslipidemia * In regards to acute encephalopathy, mentation has improved . CT head negative .continue management for urinary tract infection maintain delirium precautions * In regards for UTI, continue IV Rocephin, can be switched to Ceftin at discharge, PT and OT following * In regards to hypertension,continue hydralazine, continue amlodipine * In regards to diabetes, continue patient on correctional insulin, Accu-Cheks before meals at bedtime metformin on hold * In regards to history of TIA, continue aspirin and Crestor Labs and medication were reviewed.. Continue same treatment. Continue with symptomatic treatment. Resume home medication. Monitor labs and vitals. DVT and GI prophylaxis. Further recommendations as per clinical course of the patient Dictation was produced using [employer] dictation software. please excuse any grammatical, word or spelling errors. Objective - Vital Signs Vital signs: Vital Signs Temp 99.0 F 01/05/23 08:00 Pulse 58 L 01/05/23 08:00 Resp 16 01/05/23 08:00 BP 183/78 01/05/23 08:00 Pulse Ox 94 L 01/05/23 08:00 FiO2 Intake & Output 01/04/23 01/05/23 01/05/23 18:59 06:59 18:59 Other: Voiding Method Toilet Toilet # Voids 3 2 - Labs CBC & Chem 7: 01/04/23 05:37 01/04/23 05:37 Labs: Abnormal Lab Results - Last 24 Hours (Table) 01/04/23 01/04/23 01/05/23 Range/Units 16:55 19:47 06:13 POC Glucose (mg/dL) 154 H 248 H 134 H (70-110) mg/dL 01/05/23 Range/Units 11:47 POC Glucose (mg/dL) 175 H (70-110) mg/dL Microbiology - Last 24 Hours (Table) 01/01/23 10:50 Blood Culture - Preliminary Blood 01/01/23 11:05 Blood Culture - Preliminary Blood
[2023-01-05 16:46] LABS: Glucose,Whole Blood 241 mg/dL (70-110)
[2023-01-05] MEDS ORDERED: MAGNESIUM HYDROXIDE 2,400 MG/30 ML CUP PO PRN (17:20)
[2023-01-05] MEDS: SENNOSIDES 8.6 MG TAB PO SCH (17:45)
[2023-01-05 19:45] LABS: Glucose,Whole Blood 224 mg/dL (70-110)
[2023-01-06 05:27] LABS: Glucose,Whole Blood 136 mg/dL (70-110)
[2023-01-06] MEDS: LEVOTHYROXINE 50 MCG TAB PO SCH (06:33)
[2023-01-06] MEDS: hydrALAZINE HCL 50 MG TAB PO SCH ×2 (06:33→17:36)
[2023-01-06] MEDS: INSULIN ASPART (NovoLOG) 100 UNIT/ML VIAL SQ SCH ×4 (06:34→21:13)
[2023-01-06 07:03] LABS: African American GFR (CKD) >90 (>60 ml/min/1.73 sqM); Anion Gap 10 mmol/L; Blood Urea Nitrogen 13 mg/dL (7-17); Calcium 8.8 mg/dL (8.4-10.2); Carbon Dioxide 25 mmol/L (22-30); Chloride 106 mmol/L (98-107); Glucose 138 mg/dL (74-99); Non-African American GFR(CKD) >90 (>60 ml/min/1.73 sqM); Potassium 3.6 mmol/L (3.5-5.1); Sodium 141 mmol/L (137-145)
[2023-01-06] MEDS: ENOXAPARIN 40 MG/0.4 ML SYRINGE SQ SCH (09:17)
[2023-01-06] MEDS: LIDOCAINE 5% PATCH TOPICAL SCH (09:17)
[2023-01-06] MEDS: ASPIRIN 81 MG PO SCH (09:17)
[2023-01-06] MEDS: SENNOSIDES 8.6 MG TAB PO SCH ×2 (09:17→21:14)
[2023-01-06] MEDS: lisinopriL 20 MG TAB PO SCH ×2 (09:17→21:14)
[2023-01-06] MEDS: amLODIPine 5 MG TAB PO SCH ×2 (09:17→21:14)
[2023-01-06] MEDS: ATORVASTATIN 20 MG TAB PO SCH (09:17)
[2023-01-06 11:16] LABS: Glucose,Whole Blood 145 mg/dL (70-110)
--- NOTE | 2023-01-06 12:44 | P.PN ---
Subjective Progress Note Date: 01/06/23 * 87-year-old lady with past medical history significant for hypertension, dyslipidemia, gastroesophageal reflux disease, hypothyroid, TIA, presents to the emergency department with complaints of worsening confusion and fall at home * Patient was accompanied with son who assisted with history taking. Patient has been having generalized weakness feeling dizzy and not feeling herself for the last 48 hours. Per son patient had a fall at home however she did not want to come to the emergency. Today son called EMS due to worsening confusion * Workup initiated in ER included CBC which showed WBC count of 13.9 hemoglobin of 14.7 platelet count of 266, serum chemistry sodium 139 potassium 3.7 BUN 16 creatinine 0.38 * CT head obtained negative for acute intracranial process, chronic ischemic changes noted * Urinalysis is obtained showed WBC, moderate bacteria nitrite positive leukocyte esterase positive secondary to ongoing confusion patient was started on IV antibiotics and IV fluids 01/02. Patient seen and examined. Vital signs this morning temperature 90.5, heart rate 76, respiration 18, blood pressure 152/61. WBC 9.96, hemoglobin 12.7. Patient son at the bedside, denies any lightheadedness or dizziness. States she feels much better. 01/03. Patient seen and examined. States she's feeling more tired compared to yesterday. Denies any lightheadedness or dizziness. Keen to go to rehab 01/04. Patient seen and examined. Sitting upright in the chair, states she f eels much better. Denies any confusion. Denies any fever or chills. Lab work WBC 8.3, hemoglobin 12.2, sodium 144, potassium 3.3, BUN 6.7, creatinine 0.4 01/05. Patient seen and examined. Work with physical therapy, they recommended rehab. States she feels little stronger. Vital signs stable 01/06. Patient seen and examined. No acute issues overnight. Remains afebrile. States she is getting stronger. Keen to go to rehab REVIEW OF SYSTEMS: CONSTITUTIONAL: No fever, no malaise,. CARDIOVASCULAR: No chest pain, no palpitations, no syncope. PULMONARY: No shortness of breath, no cough, GASTROINTESTINAL: No diarrhea, no nausea, no vomiting, no abdominal pain. NEUROLOGICAL: No headaches, no weakness, PHYSICAL EXAMINATION: GENERAL: The patient is alert and oriented x3, not in any acute distress. Well developed, well nourished. HEENT: Pupils are round and equally reacting to light. EOMI. No scleral icterus. No conjunctival pallor. Normocephalic, atraumatic. No pharyngeal erythema. No thyromegaly. CARDIOVASCULAR: S1 and S2 present. No murmurs, rubs, or gallops. PULMONARY: Chest is clear to auscultation, no wheezing or crackles. ABDOMEN: Soft, nontender, nondistended, normoactive bowel sounds. No palpable organomegaly. MUSCULOSKELETAL: No joint swelling or deformity. EXTREMITIES: No cyanosis, clubbing, or pedal edema. NEUROLOGICAL: Gross neurological examination did not reveal any focal deficits. SKIN: No rashes. Assessment and plan Acute encephalopathy secondary to urinary tract infection Acute cystitis History of hypertension History of TIA History of dyslipidemia * In regards to acute encephalopathy, mentation has improved . CT head negative .continue management for urinary tract infection maintain delirium precautions * In regards for UTI, continue IV Rocephin, can be switched to Ceftin at discharge, PT and OT following * In regards to hypertension,continue hydralazine, continue amlodipine * In regards to diabetes, continue patient on correctional insulin, Accu-Cheks before meals at bedtime metformin on hold * In regards to history of TIA, continue aspirin and Crestor Labs and medication were reviewed.. Continue same treatment. Continue with symptomatic treatment. Resume home medication. Monitor labs and vitals. DVT and GI prophylaxis. Further recommendations as per clinical course of the patient Dictation was produced using [employer] dictation software. please excuse any grammatical, word or spelling errors. Objective - Vital Signs Vital signs: Vital Signs Temp 97.1 F L 01/06/23 07:02 Pulse 65 01/06/23 07:02 Resp 16 01/06/23 07:02 BP 159/59 01/06/23 07:02 Pulse Ox 95 01/06/23 07:02 FiO2 Intake & Output 01/05/23 01/06/23 01/06/23 18:59 06:59 18:59 Intake Total 50 Balance 50 Intake: Intake, IV Titration 50 Amount cefTRIAXone 1 gm In 50 Sodium Chloride 0.9% 50 ml @ 100 mls/hr IVPB Q24HR [facility] Rx#:[id number] Other: Voiding Method Toilet Toilet # Voids 2 - Labs CBC & Chem 7: 01/04/23 05:37 01/06/23 05:48 Labs: Abnormal Lab Results - Last 24 Hours (Table) 01/05/23 01/05/23 01/06/23 Range/Units 16:45 19:42 05:25 Creatinine (0.52-1.04) mg/dL Glucose (74-99) mg/dL POC Glucose (mg/dL) 241 H 224 H 136 H (70-110) mg/dL 01/06/23 01/06/23 Range/Units 05:48 11:15 Creatinine 0.40 L (0.52-1.04) mg/dL Glucose 138 H (74-99) mg/dL POC Glucose (mg/dL) 145 H (70-110) mg/dL
[2023-01-06 16:31] LABS: Glucose,Whole Blood 241 mg/dL (70-110)
[2023-01-06 19:38] LABS: Glucose,Whole Blood 137 mg/dL (70-110)
[2023-01-07 05:57] LABS: Glucose,Whole Blood 156 mg/dL (70-110)
[2023-01-07] MEDS: LEVOTHYROXINE 50 MCG TAB PO SCH (06:09)
[2023-01-07] MEDS: INSULIN ASPART (NovoLOG) 100 UNIT/ML VIAL SQ SCH ×4 (06:53→21:03)
[2023-01-07] MEDS: hydrALAZINE HCL 50 MG TAB PO SCH ×2 (06:54→10:11)
[2023-01-07] MEDS: SENNOSIDES 8.6 MG TAB PO SCH ×2 (10:11→21:03)
[2023-01-07] MEDS: lisinopriL 20 MG TAB PO SCH ×2 (10:11→21:03)
[2023-01-07] MEDS: ENOXAPARIN 40 MG/0.4 ML SYRINGE SQ SCH (10:11)
[2023-01-07] MEDS: amLODIPine 5 MG TAB PO SCH ×2 (10:11→21:03)
[2023-01-07] MEDS: ASPIRIN 81 MG PO SCH (10:11)
[2023-01-07] MEDS: ATORVASTATIN 20 MG TAB PO SCH (10:12)
[2023-01-07] MEDS: LIDOCAINE 5% PATCH TOPICAL SCH (10:13)
[2023-01-07 11:28] LABS: Glucose,Whole Blood 225 mg/dL (70-110)
--- NOTE | 2023-01-07 13:21 | P.PN ---
Subjective Progress Note Date: 01/07/23 * 87-year-old lady with past medical history significant for hypertension, dyslipidemia, gastroesophageal reflux disease, hypothyroid, TIA, presents to the emergency department with complaints of worsening confusion and fall at home * Patient was accompanied with son who assisted with history taking. Patient has been having generalized weakness feeling dizzy and not feeling herself for the last 48 hours. Per son patient had a fall at home however she did not want to come to the emergency. Today son called EMS due to worsening confusion * Workup initiated in ER included CBC which showed WBC count of 13.9 hemoglobin of 14.7 platelet count of 266, serum chemistry sodium 139 potassium 3.7 BUN 16 creatinine 0.38 * CT head obtained negative for acute intracranial process, chronic ischemic changes noted * Urinalysis is obtained showed WBC, moderate bacteria nitrite positive leukocyte esterase positive secondary to ongoing confusion patient was started on IV antibiotics and IV fluids 01/02. Patient seen and examined. Vital signs this morning temperature 90.5, heart rate 76, respiration 18, blood pressure 152/61. WBC 9.96, hemoglobin 12.7. Patient son at the bedside, denies any lightheadedness or dizziness. States she feels much better. 01/03. Patient seen and examined. States she's feeling more tired compared to yesterday. Denies any lightheadedness or dizziness. Keen to go to rehab 01/04. Patient seen and examined. Sitting upright in the chair, states she f eels much better. Denies any confusion. Denies any fever or chills. Lab work WBC 8.3, hemoglobin 12.2, sodium 144, potassium 3.3, BUN 6.7, creatinine 0.4 01/05. Patient seen and examined. Work with physical therapy, they recommended rehab. States she feels little stronger. Vital signs stable 01/06. Patient seen and examined. No acute issues overnight. Remains afebrile. States she is getting stronger. Keen to go to rehab 01/07. Patient seen and examined. Continues to be afebrile. Denies any lightheadedness or dizziness. Denies any lethargy or weakness. REVIEW OF SYSTEMS: CONSTITUTIONAL: No fever, no malaise,. CARDIOVASCULAR: No chest pain, no palpitations, no syncope. PULMONARY: No shortness of breath, no cough, GASTROINTESTINAL: No diarrhea, no nausea, no vomiting, no abdominal pain. NEUROLOGICAL: No headaches, no weakness, PHYSICAL EXAMINATION: GENERAL: The patient is alert and oriented x3, not in any acute distress. Well developed, well nourished. HEENT: Pupils are round and equally reacting to light. EOMI. No scleral icterus. No conjunctival pallor. Normocephalic, atraumatic. No pharyngeal erythema. No thyromegaly. CARDIOVASCULAR: S1 and S2 present. No murmurs, rubs, or gallops. PULMONARY: Chest is clear to auscultation, no wheezing or crackles. ABDOMEN: Soft, nontender, nondistended, normoactive bowel sounds. No palpable organomegaly. MUSCULOSKELETAL: No joint swelling or deformity. EXTREMITIES: No cyanosis, clubbing, or pedal edema. NEUROLOGICAL: Gross neurological examination did not reveal any focal deficits. SKIN: No rashes. Assessment and plan Acute encephalopathy secondary to urinary tract infection Acute cystitis History of hypertension History of TIA History of dyslipidemia * In regards to acute encephalopathy, mentation has improved . CT head negative .continue management for urinary tract infection maintain delirium precautions * In regards for UTI, continue IV Rocephin, can be switched to Ceftin at dis charge, PT and OT following * In regards to hypertension,continue hydralazine, continue amlodipine * In regards to diabetes, continue patient on correctional insulin, Accu-Cheks before meals at bedtime metformin on hold * In regards to history of TIA, continue aspirin and Crestor Labs and medication were reviewed.. Continue same treatment. Continue with symptomatic treatment. Resume home medication. Monitor labs and vitals. DVT and GI prophylaxis. Further recommendations as per clinical course of the patient Dictation was produced using [employer] dictation software. please excuse any grammatical, word or spelling errors. Objective - Vital Signs Vital signs: Vital Signs Temp 98.0 F 01/07/23 07:35 Pulse 57 L 01/07/23 07:35 Resp 19 01/07/23 07:35 BP 158/67 01/07/23 07:35 Pulse Ox 95 01/07/23 07:35 FiO2 Intake & Output 01/06/23 01/07/23 01/07/23 18:59 06:59 18:59 Intake Total 50 50 Balance 50 50 Intake: Intake, IV Titration 50 50 Amount cefTRIAXone 1 gm In 50 50 Sodium Chloride 0.9% 50 ml @ 100 mls/hr IVPB Q24HR [facility] Rx#:[id number] Other: # Voids 6 0 # Bowel Movements 1 - Labs CBC & Chem 7: 01/04/23 05:37 01/06/23 05:48 Labs: Abnormal Lab Results - Last 24 Hours (Table) 01/06/23 01/06/23 01/07/23 Range/Units 16:29 19:37 05:56 POC Glucose (mg/dL) 241 H 137 H 156 H (70-110) mg/dL 01/07/23 Range/Units 11:26 POC Glucose (mg/dL) 225 H (70-110) mg/dL Microbiology - Last 24 Hours (Table) 01/01/23 10:50 Blood Culture - Final Blood 01/01/23 11:05 Blood Culture - Final Blood
[2023-01-07 16:15] LABS: Glucose,Whole Blood 145 mg/dL (70-110)
[2023-01-07 19:44] LABS: Glucose,Whole Blood 211 mg/dL (70-110)
[2023-01-08 05:07] LABS: Glucose,Whole Blood 153 mg/dL (70-110)
[2023-01-08] MEDS: LEVOTHYROXINE 50 MCG TAB PO SCH (06:26)
[2023-01-08] MEDS: hydrALAZINE HCL 50 MG TAB PO SCH (06:26)
[2023-01-08] MEDS: INSULIN ASPART (NovoLOG) 100 UNIT/ML VIAL SQ SCH ×2 (06:26→14:54)
[2023-01-08 07:41] VITALS: RESP 19
[2023-01-08] MEDS: ASPIRIN 81 MG PO SCH (10:12)
[2023-01-08] MEDS: ENOXAPARIN 40 MG/0.4 ML SYRINGE SQ SCH (10:12)
[2023-01-08] MEDS: amLODIPine 5 MG TAB PO SCH (10:13)
[2023-01-08] MEDS: ATORVASTATIN 20 MG TAB PO SCH (10:13)
[2023-01-08] MEDS: lisinopriL 20 MG TAB PO SCH (10:37)
[2023-01-08] MEDS: SENNOSIDES 8.6 MG TAB PO SCH (10:37)
[2023-01-08] MEDS: LIDOCAINE 5% PATCH TOPICAL SCH (10:38)
[2023-01-08 11:13] LABS: Glucose,Whole Blood 143 mg/dL (70-110)
--- NOTE | 2023-01-08 13:20 | P.PN ---
Subjective Progress Note Date: 01/08/23 * 87-year-old lady with past medical history significant for hypertension, dyslipidemia, gastroesophageal reflux disease, hypothyroid, TIA, presents to the emergency department with complaints of worsening confusion and fall at home * Patient was accompanied with son who assisted with history taking. Patient has been having generalized weakness feeling dizzy and not feeling herself for the last 48 hours. Per son patient had a fall at home however she did not want to come to the emergency. Today son called EMS due to worsening confusion * Workup initiated in ER included CBC which showed WBC count of 13.9 hemoglobin of 14.7 platelet count of 266, serum chemistry sodium 139 potassium 3.7 BUN 16 creatinine 0.38 * CT head obtained negative for acute intracranial process, chronic ischemic changes noted * Urinalysis is obtained showed WBC, moderate bacteria nitrite positive leukocyte esterase positive secondary to ongoing confusion patient was started on IV antibiotics and IV fluids 01/02. Patient seen and examined. Vital signs this morning temperature 90.5, heart rate 76, respiration 18, blood pressure 152/61. WBC 9.96, hemoglobin 12.7. Patient son at the bedside, denies any lightheadedness or dizziness. States she feels much better. 01/03. Patient seen and examined. States she's feeling more tired compared to yesterday. Denies any lightheadedness or dizziness. Keen to go to rehab 01/04. Patient seen and examined. Sitting upright in the chair, states she f eels much better. Denies any confusion. Denies any fever or chills. Lab work WBC 8.3, hemoglobin 12.2, sodium 144, potassium 3.3, BUN 6.7, creatinine 0.4 01/05. Patient seen and examined. Work with physical therapy, they recommended rehab. States she feels little stronger. Vital signs stable 01/06. Patient seen and examined. No acute issues overnight. Remains afebrile. States she is getting stronger. Keen to go to rehab 01/07. Patient seen and examined. Continues to be afebrile. Denies any lightheadedness or dizziness. Denies any lethargy or weakness. 01/08. Patient seen and examined. Patient completed course of antibiotics for UTI. Currently waiting on appeal for insurance authorization. Vital signs stable REVIEW OF SYSTEMS: CONSTITUTIONAL: No fever, no malaise,. CARDIOVASCULAR: No chest pain, no palpitations, no syncope. PULMONARY: No shortness of breath, no cough, GASTROINTESTINAL: No diarrhea, no nausea, no vomiting, no abdominal pain. NEUROLOGICAL: No headaches, no weakness, PHYSICAL EXAMINATION: GENERAL: The patient is alert and oriented x3, not in any acute distress. Well developed, well nourished. HEENT: Pupils are round and equally reacting to light. EOMI. No scleral icterus. No conjunctival pallor. Normocephalic, atraumatic. No pharyngeal erythema. No thyromegaly. CARDIOVASCULAR: S1 and S2 present. No murmurs, rubs, or gallops. PULMONARY: Chest is clear to auscultation, no wheezing or crackles. ABDOMEN: Soft, nontender, nondistended, normoactive bowel sounds. No palpable organomegaly. MUSCULOSKELETAL: No joint swelling or deformity. EXTREMITIES: No cyanosis, clubbing, or pedal edema. NEUROLOGICAL: Gross neurological examination did not reveal any focal deficits. SKIN: No rashes. Assessment and plan Acute encephalopathy secondary to urinary tract infection Acute cystitis History of hypertension History of TIA History of dyslipidemia * In regards to acute encephalopathy, mentation has improved . CT head negative .maintain delirium precautions * In regards for UTI, completed course of antibiotic PT and OT following * In regards to hypertension,continue hydralazine, continue amlodipine * In regards to diabetes, continue patient on correctional insulin, Accu-Cheks before meals at bedtime metformin on hold * In regards to history of TIA, continue aspirin and Crestor Labs and medication were reviewed.. Continue same treatment. Continue with symptomatic treatment. Resume home medication. Monitor labs and vitals. DVT and GI prophylaxis. Further recommendations as per clinical course of the patient Dictation was produced using [employer] dictation software. please excuse any gr ammatical, word or spelling errors. Objective - Vital Signs Vital signs: Vital Signs Temp 98.0 F 01/08/23 06:57 Pulse 45 L 01/08/23 06:57 Resp 19 01/08/23 07:50 BP 139/53 01/08/23 06:57 Pulse Ox 95 01/08/23 06:57 FiO2 Intake & Output 01/07/23 01/08/23 01/08/23 18:59 06:59 18:59 Intake Total 50 Balance 50 Intake: Intake, IV Titration 50 Amount cefTRIAXone 1 gm In 50 Sodium Chloride 0.9% 50 ml @ 100 mls/hr IVPB Q24HR [facility] Rx#:[id number] Other: # Voids 5 2 # Bowel Movements 1 - Labs CBC & Chem 7: 01/04/23 05:37 01/06/23 05:48 Labs: Abnormal Lab Results - Last 24 Hours (Table) 01/07/23 01/07/23 01/08/23 Range/Units 16:12 19:43 05:03 POC Glucose (mg/dL) 145 H 211 H 153 H (70-110) mg/dL 01/08/23 Range/Units 11:12 POC Glucose (mg/dL) 143 H (70-110) mg/dL
[2023-01-08 13:48] VITALS: BMI 25.0
[2023-01-08 14:12] VITALS: BP 132/66; PULSE 67; TEMP 97.9
[2023-01-08 16:15] LABS: Glucose,Whole Blood 138 mg/dL (70-110)
--- NOTE | 2023-01-09 09:27 | P.DS ---
Providers Date of admission: 01/01/23 12:57 Expected date of discharge: 01/09/23 Attending physician: Tatyana Goss MD Primary care physician: Lucian Asher [facility] Course: Discharge diagnoses; Acute encephalopathy secondary to urinary tract infection Acute cystitis History of hypertension History of TIA History of dyslipidemia Hospital course; 87-year-old lady with past medical history significant for hypertension, dyslipidemia, gastroesophageal reflux disease, hypothyroid, TIA, presents to the emergency department with complaints of worsening confusion and fall at home * Patient was accompanied with son who assisted with history taking. Patient has been having generalized weakness feeling dizzy and not feeling herself for the last 48 hours. Per son patient had a fall at home however she did not want to come to the emergency. Today son called EMS due to worsening confusion * Workup initiated in ER included CBC which showed WBC count of 13.9 hemoglobin of 14.7 platelet count of 266, serum chemistry sodium 139 potassium 3.7 BUN 16 creatinine 0.38 * CT head obtained negative for acute intracranial process, chronic ischemic changes noted * Urinalysis is obtained showed WBC, moderate bacteria nitrite positive leukocyte esterase positive secondary to ongoing confusion patient was started on IV antibiotics and IV fluids 01/02. Patient seen and examined. Vital signs this morning temperature 90.5, heart rate 76, respiration 18, blood pressure 152/61. WBC 9.96, hemoglobin 12.7. Patient son at the bedside, denies any lightheadedness or dizziness. States she feels much better. 01/03. Patient seen and examined. States she's feeling more tired compared to yesterday. Denies any lightheadedness or dizziness. Keen to go to rehab 01/04. Patient seen and examined. Sitting upright in the chair, states she feels much better. Denies any confusion. Denies any fever or chills. Lab work WBC 8.3, hemoglobin 12.2, sodium 144, potassium 3.3, BUN 6.7, creatinine 0.4 01/05. Patient seen and examined. Work with physical therapy, they recommended rehab. States she feels little stronger. Vital signs stable 01/06. Patient seen and examined. No acute issues overnight. Remains afebrile. States she is getting stronger. Keen to go to rehab 01/07. Patient seen and examined. Continues to be afebrile. Denies any lightheadedness or dizziness. Denies any lethargy or weakness. 01/08. Patient seen and examined. Patient completed course of antibiotics for UTI. Insurance denied rehab. Patient discharged home with homecare PHYSICAL EXAMINATION: GENERAL: The patient is alert and oriented x3, not in any acute distress. Well developed, well nourished. HEENT: Pupils are round and equally reacting to light. EOMI. No scleral icterus. No conjunctival pallor. Normocephalic, atraumatic. No pharyngeal erythema. No thyromegaly. CARDIOVASCULAR: S1 and S2 present. No murmurs, rubs, or gallops. PULMONARY: Chest is clear to auscultation, no wheezing or crackles. ABDOMEN: Soft, nontender, nondistended, normoactive bowel sounds. No palpable organomegaly. MUSCULOSKELETAL: No joint swelling or deformity. EXTREMITIES: No cyanosis, clubbing, or pedal edema. NEUROLOGICAL: Gross neurological examination did not reveal any focal deficits. SKIN: No rashes. Dictation was produced using [facility] dictation software. please excuse any grammatical, word or spelling errors. Patient Condition at Discharge: Fair Plan - Discharge Summary Discharge Rx Participant: Yes New Discharge Prescriptions: New Lidocaine 5% Patch [Lidoderm 5% Patch] 1 patch TOPICAL DAILY 7 Days #7 patch Magnesium Hydroxide [Milk of Magnesia] 1,200 mg PO QID PRN ml PRN Reason: Constipation Continue amLODIPine BESYLATE/BENAZEPRIL [Lotrel 5-20 MG] 1 cap PO BID Levothyroxine Sodium [Synthroid] 50 mcg PO DAILY metFORMIN HCL 500 mg PO BID hydrALAZINE HCL [Apresoline] 50 mg PO BID-W/MEALS hydrALAZINE HCL [Apresoline] 50 mg PO DAILY PRN PRN Reason: BP >160/90 Rosuvastatin [Crestor] 10 mg PO DAILY Aspirin EC [Ecotrin Low Dose] 81 mg PO DAILY Glucosamine/Chondr Gonzalez A Sod [Osteo Bi-Flex Caplet] 2 tab PO DAILY Discharge Medication List Levothyroxine Sodium [Synthroid] 50 mcg PO DAILY 04/09/14 [History] amLODIPine BESYLATE/BENAZEPRIL [Lotrel 5-20 MG] 1 cap PO BID 04/09/14 [History] Aspirin EC [Ecotrin Low Dose] 81 mg PO DAILY 07/06/22 [History] hydrALAZINE HCL [Apresoline] 50 mg PO BID-W/MEALS 07/06/22 [History] metFORMIN HCL 500 mg PO BID 07/06/22 [History] Glucosamine/Chondr Gonzalez A Sod [Osteo Bi-Flex Caplet] 2 tab PO DAILY 01/01/23 [Hi story] Rosuvastatin [Crestor] 10 mg PO DAILY 01/01/23 [History] hydrALAZINE HCL [Apresoline] 50 mg PO DAILY PRN 01/01/23 [History] Lidocaine 5% Patch [Lidoderm 5% Patch] 1 patch TOPICAL DAILY 7 Days #7 patch 01/05/23 [Rx] Magnesium Hydroxide [Milk of Magnesia] 1,200 mg PO QID PRN ml 01/08/23 [Rx] Follow up Appointment(s)/Referral(s): [facility], [NON-STAFF] - 1-2 Days ([facility] will call you to schedule your in home nursing, physical therapy, occupational therapy, and aide visits. ) Lucian Sterling MD [Primary Care Provider] - 1-2 days Patient Instructions/Handouts: Urinary Tract Infection in Women (DC) Activity/Diet/Wound Care/Special Instructions: Patient requires a walker due to osteoarthritis of legs. Discharge/Stand Alone Forms: [facility] In The Home Discharge Disposition: HOME SELF-CARE
--- NOTE | 2023-01-11 08:52 | CDI ---
Documentation Clarification Form Date: 01/11/2023 08:33:49 AM From: Dasia Dan Phone: Admit Date: 01/01/2023 12:57:00 PM Patient Name: Nina Soto Visit Number: [id number] Discharge Date: 01/08/2023 04:51:00 PM ATTENTION: The Clinical Documentation Specialists (CDI) and [facility] Coding Staff appreciate your assistance in clarifying documentation. Please respond to the clarification below the line at the bottom and electronically sign. The CDI & [facility] Coding staff will review the response and follow-up if needed. Please note: Queries are made part of the Legal Health Record. If you have any questions, please contact the author of this message via ITS. Dr. Klaus Mohan Your patient has diagnostic/radiology results: elevated glucose. Please clarify if there is an additional diagnosis and/or clinical significance related to this result. History/Risk Factors: 87yo F, acute metencephalopathyd/t acute cystitis, HTN, DMII, HLD Hx TIA, former smoker Clinical indicators: Glucose 01/01 176 01/02 128-133 01/03 145-168 01/06 136-224 01/07 225-241 Treatment: continue patient on correctional insulin, Accu-Cheks before meals at bedtime metformin on hold Is there an additional diagnosis and/or clinical significance related to the above diagnostic/radiology result? [ x] Type 2 diabetes mellitus with hyperglycemia [ ] Present on admission [ ] Not present on admission [ ] Result is not clinically significant (no additional diagnosis) [ ] Other, please specify [ ] Unable to determine (Template Last Reviewed: April 2020) MTDD
== END 2023-01-08 16:51 | disposition home or self-care (01) | DRG 689 ==
LOC: EC 06:29 → 5NMEDONC 12:57 → 4SSUR 17:23
PROVIDERS: ADMIT Internal Medicine; ATTEND Internal Medicine
DX: N30.00 Acute cystitis without hematuria (principal); G93.41 Metabolic encephalopathy; I10 Essential (primary) hypertension; E11.65 Type 2 diabetes mellitus with hyperglycemia; E03.9 Hypothyroidism, unspecified; E78.5 Hyperlipidemia, unspecified; K21.9 Gastro-esophageal reflux disease without esophagitis; M19.90 Unspecified osteoarthritis, unspecified site; I44.0 Atrioventricular block, first degree; S30.0XXA Contusion of lower back and pelvis, initial encounter; S30.1XXA Contusion of abdominal wall, initial encounter; J32.9 Chronic sinusitis, unspecified; W19.XXXA Unspecified fall, initial encounter; Z20.822 Contact with and (suspected) exposure to COVID-19; Z96.643 Presence of artificial hip joint, bilateral; Y92.009 Unspecified place in unspecified non-institutional (private) residence as the place of occurrence of the external cause; Z87.891 Personal history of nicotine dependence; Z28.310 Unvaccinated for COVID-19; Z79.82 Long term (current) use of aspirin; Z86.73 Personal history of transient ischemic attack (TIA), and cerebral infarction without residual deficits; Z79.890 Hormone replacement therapy; Z79.84 Long term (current) use of oral hypoglycemic drugs; Z79.899 Other long term (current) drug therapy; Z88.7 Allergy status to serum and vaccine; Z87.440 Personal history of urinary (tract) infections
CPT/HCPCS: 36415; 70450; 71046; 72220; 74177; 80048; 80053; 81001; 83036; 83880; 84484; 85025; 85027; 87040; 87086; 87636; 93005; 96361; 96365; 96375; 99285

== ENCOUNTER 2023-04-26 10:58 | Emergency (ER) | payer MEDICARE ==
[2023-04-26 11:31] VITALS: TEMP 98.1
--- NOTE | 2023-04-26 11:42 | ED ---
General Adult HPI - General Chief complaint: Altered Mental Status Stated complaint: poss UTI Time Seen by Provider: 04/26/23 11:17 Source: patient, family, RN notes reviewed Mode of arrival: wheelchair Limitations: altered mental status - History of Present Illness Initial comments: Patient is a pleasant 87-year-old female present to the emergency department with concern for mental status. Patient has had change in mental status over the past several weeks. Patient is having difficulty taking her medications. Patient is hiding them worried that family is trying to poison her. Patient admits that it is difficult for her to concentrate and she is answering questions slowly. Patient did have similar episode years ago associated with urinary tract infection. No isolated area of weakness. - Related Data Home Medications Medication Instructions Recorded Confirmed Levothyroxine Sodium [Synthroid] 50 mcg PO DAILY 04/09/14 01/01/23 amLODIPine BESYLATE/BENAZEPRIL 1 cap PO BID 04/09/14 01/01/23 [Lotrel 5-20 MG] Aspirin EC [Ecotrin Low Dose] 81 mg PO DAILY 07/06/22 01/01/23 hydrALAZINE HCL [Apresoline] 50 mg PO BID-W/MEALS 07/06/22 01/01/23 metFORMIN HCL 500 mg PO BID 07/06/22 01/01/23 Glucosamine/Chondr Gonzalez A Sod [Osteo 2 tab PO DAILY 01/01/23 01/01/23 Bi-Flex Caplet] Rosuvastatin [Crestor] 10 mg PO DAILY 01/01/23 01/01/23 hydrALAZINE HCL [Apresoline] 50 mg PO DAILY PRN 01/01/23 01/01/23 Previous Rx's Medication Instructions Recorded Lidocaine 5% Patch [Lidoderm 5% 1 patch TOPICAL DAILY 7 Days #7 01/05/23 Patch] patch Magnesium Hydroxide [Milk of 1,200 mg PO QID PRN ml 01/08/23 Magnesia] Allergies Allergy/AdvReac Type Severity Reaction Status Date / Time tetanus and diphtheria Allergy Unknown Verified 01/01/23 08:01 toxoids Childhood [tetanus & diphtheria toxoids] Review of Systems ROS Statement: Those systems with pertinent positive or pertinent negative responses have been documented in the HPI. ROS Other: All systems not noted in ROS Statement are negative. Constitutional: Denies: fever Eyes: Denies: eye pain ENT: Denies: ear pain Neurological: Reports: as per HPI, confusion. 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 History of Any Multi-Drug Resistant Organisms: None Reported Past Surgical History: Adenoidectomy, Hysterectomy, Joint Replacement, Tonsillectomy Additional Past Surgical History / Comment(s): Bilateral hip replacement, partial hysterectomy, bilateral cataracts removed with lens implants. Past Anesthesia/Blood Transfusion Reactions: No Reported Reaction Past Psychological History: Anxiety Smoking Status: Former smoker Past Alcohol Use History: Daily Past Drug Use History: None Reported - Past Family History Father Family Medical History: Myocardial Infarction (RI) Additional Family Medical History / Comment(s): Father of a RI at the age of 63yrs. Mother Family Medical History: Coronary Artery Disease (CAD), Dementia Additional Family Medical History / Comment(s): Mother at the age of 82 yrs. Sister(s) Family Medical History: No Reported History Son(s) Family Medical History: No Reported History Daughter(s) Family Medical History: No Reported History General Exam Limitations: altered mental status General appearance: alert, in no apparent distress Head exam: Present: atraumatic, normocephalic Eye exam: Present: normal appearance, PERRL, EOMI ENT exam: Present: normal oropharynx Respiratory exam: Present: normal lung sounds bilaterally Cardiovascular Exam: Present: regular rate, irregular rhythm GI/Abdominal exam: Present: soft. Absent: tenderness Extremities exam: Present: normal inspection Neurological exam: Present: alert, CN II-XII intact. Absent: motor sensory deficit Expanded Neurological exam: Present: protecting the airway Patient oriented to: Absent: time Speech: Present: fluid speech Cranial nerves: EOM's Intact: Normal Motor strength exam: RUE: 5, LUE: 5, RLE: 5, LLE: 5 Eye Response: (4) open spontaneously Motor Response: (6) obeys commands Verbal Response: (4) confused conversation Psychiatric exam: Present: normal affect, normal mood Skin exam: Present: normal color Course Vital Signs 02/18/24 11:11 Temperature 98.1 F Pulse Rate 52 L Respiratory 20 Rate Blood Pressure 148/82 O2 Sat by Pulse 98 Oximetry EKG Findings - EKG Results: EKG: interpreted by ERMD (LVH criteria. Inferior Q waves.), normal axis, normal ST/T EKG shows: atrial fibrillation Medical Decision Making - Medical Decision Making Was pt. sent in by a medical professional or institution (, [place], [employer], urgent care, hospital, or assisted...) When possible be specific @ -No Did you speak to anyone other than the patient for history (EMS, parent, family, police, friend...)? What history was obtained from this source @ -Family is present and helps provide history as patient is somewhat a poor historian Did you review nursing and triage notes (agree or disagree)? Why? @ -I reviewed and agree with nursing and triage notes Were old charts reviewed (outside hosp., previous admission, EMS record, old EKG, old radiological studies, urgent care reports/EKG's, assisted records)? Report findings @ -Previous chest x-ray reviewed Differential Diagnosis (chest pain, altered mental status, abdominal pain women, abdominal pain men, vaginal bleeding, weakness, fever, dyspnea, syncope, headache, dizziness, GI bleed, back pain, seizure, CVA, palpatations, mental health, musculoskeletal)? @ -Differential Altered Mental Status: Hypoglycemia, DKA, hypercapnia, ETOH, overdose, CO poisoning, trauma, myxedema coma, HTN encephalopathy, infection, encephalitis, psychosis, intercranial hemorrhage, hepatic encephalopathy, meningitis, CVA, this is not meant to be an all-inclusive list EKG interpreted by me (3pts min.). @ -As above X-rays interpreted by me (1pt min.). @ -Chest x-ray shows no acute process CT interpreted by me (1pt min.). @ -CT scan shows no acute process U/S interpreted by me (1pt. min.). @ -None done What testing was considered but not performed or refused? (CT, X-rays, U/S, labs)? Why? @ -None What meds were considered but not given or refused? Why? @ -None Did you discuss the management of the patient with other professionals (professionals i.e. , KEVAN, [employer], lab, RT, psych nurse, social media executive, community relations police lieutenant, teacher, forestry technical officer, case assistant)? Give summary @ -Case was discussed with Dr. Camargo who is familiar with this patient and does feel patient can be discharged home. He states patient does have history of this several times previously Was smoking cessation discussed for >3mins.? @ -No Was critical care preformed (if so, how long)? @ -No Were there social determinants of health that impacted care today? How? (Homelessness, low income, unemployed, alcoholism, drug addiction, transportation, low edu. Level, literacy, decrease access to med. care, snf, rehab)? @ -No Was there de-escalation of care discussed even if they declined (Discuss DNR or withdrawal of care, Hospice)? DNR status @ -No What co-morbidities impacted this encounter? (DM, HTN, Smoking, COPD, CAD, Cancer, CVA, ARF, Chemo, Hep., AIDS, mental health diagnosis, sleep apnea, morbid obesity)? @ -None Was patient admitted / discharged? Hospital course, mention meds given and route, prescriptions, significant lab abnormalities, going to OR and other pertinent info. @ -Patient reevaluated. Patient and family are updated on results and need for follow-up. They are comfortable with discharge home and do plan on close foll ow-up with Dr. Camargo this week. Undiagnosed new problem with uncertain prognosis? @ -No Drug Therapy requiring intensive monitoring for toxicity (Heparin, Nitro, Insulin, Cardizem)? @ -No Were any procedures done? @ -No Diagnosis/symptom? @ -Confusion Acute, or Chronic, or Acute on Chronic? @ -Acute on chronic Uncomplicated (without systemic symptoms) or Complicated (systemic symptoms)? @ -Default Side effects of treatment? @ -No Exacerbation, Progression, or Severe Exacerbation? @ -No Poses a threat to life or bodily function? How? (Chest pain, USA, RI, pneumonia, PE, COPD, DKA, ARF, appy, cholecystitis, CVA, Diverticulitis, Homicidal, Suicidal, threat to staff... and all critical care pts) @ -No - Lab Data Result diagrams: 04/26/23 12:05 04/26/23 12:05 Lab Results 04/26/23 04/26/23 04/26/23 Range/Units 12:05 12:05 12:05 WBC 10.0 (3.8-10.6) k/uL RBC 5.55 H (3.80-5.40) m/uL Hgb 15.3 (11.4-16.0) gm/dL Hct 47.1 H (34.0-46.0) % MCV 84.8 (80.0-100.0) fL MCH 27.5 (25.0-35.0) pg MCHC 32.4 (31.0-37.0) g/dL RDW 14.1 (11.5-15.5) % Plt Count 379 (150-450) k/uL MPV 8.6 Neutrophils % 78 % Lymphocytes % 14 % Monocytes % 5 % Eosinophils % 1 % Basophils % 1 % Neutrophils # 7.8 H (1.3-7.7) k/uL Lymphocytes # 1.4 (1.0-4.8) k/uL Monocytes # 0.5 (0-1.0) k/uL Eosinophils # 0.1 (0-0.7) k/uL Basophils # 0.1 (0-0.2) k/uL PT 10.8 (10.0-12.5) sec INR 1.0 (<1.2) APTT 21.9 L (22.0-30.0) sec Sodium 140 (137-145) mmol/L Potassium 4.8 (3.5-5.1) mmol/L Chloride 105 (98-107) mmol/L Carbon Dioxide 24 (22-30) mmol/L Anion Gap 11 mmol/L BUN 24 H (7-17) mg/dL Creatinine 0.63 (0.52-1.04) mg/dL Est GFR (CKD-EPI)AfAm >90 (>60 ml/min/1.73 sqM) Est GFR (CKD-EPI)NonAf 81 (>60 ml/min/1.73 sqM) Glucose 162 H (74-99) mg/dL POC Glucose (mg/dL) (70-110) mg/dL POC Glu Entry Level Sales Consultant ID Calcium 10.4 H (8.4-10.2) mg/dL Total Bilirubin 0.6 (0.2-1.3) mg/dL AST 24 (14-36) U/L ALT 24 (4-34) U/L Alkaline Phosphatase 72 (38-126) U/L Troponin I (0.000-0.034) ng/mL Total Protein 7.7 (6.3-8.2) g/dL Albumin 4.6 (3.5-5.0) g/dL Urine Color Urine Appearance (Clear) Urine pH (5.0-8.0) Ur Specific [place] (1.001-1.035) Urine Protein (Negative) Urine Glucose (UA) (Negative) Urine Ketones (Negative) Urine Blood (Negative) Urine Nitrite (Negative) Urine Bilirubin (Negative) Urine Urobilinogen (<2.0) mg/dL Ur Leukocyte Esterase (Negative) 04/26/23 04/26/23 04/26/23 Range/Units 12:05 12:18 13:16 WBC (3.8-10.6) k/uL RBC (3.80-5.40) m/uL Hgb (11.4-16.0) gm/dL Hct (34.0-46.0) % MCV (80.0-100.0) fL MCH (25.0-35.0) pg MCHC (31.0-37.0) g/dL RDW (11.5-15.5) % Plt Count (150-450) k/uL MPV Neutrophils % % Lymphocytes % % Monocytes % % Eosinophils % % Basophils % % Neutrophils # (1.3-7.7) k/uL Lymphocytes # (1.0-4.8) k/uL Monocytes # (0-1.0) k/uL Eosinophils # (0-0.7) k/uL Basophils # (0-0.2) k/uL PT (10.0-12.5) sec INR (<1.2) APTT (22.0-30.0) sec Sodium (137-145) mmol/L Potassium (3.5-5.1) mmol/L Chloride (98-107) mmol/L Carbon Dioxide (22-30) mmol/L Anion Gap mmol/L BUN (7-17) mg/dL Creatinine (0.52-1.04) mg/dL Est GFR (CKD-EPI)AfAm (>60 ml/min/1.73 sqM) Est GFR (CKD-EPI)NonAf (>60 ml/min/1.73 sqM) Glucose (74-99) mg/dL POC Glucose (mg/dL) 160 H (70-110) mg/dL POC Glu Entry Level Sales Consultant ID Peggy Guzmán Calcium (8.4-10.2) mg/dL Total Bilirubin (0.2-1.3) mg/dL AST (14-36) U/L ALT (4-34) U/L Alkaline Phosphatase (38-126) U/L Troponin I 0.012 (0.000-0.034) ng/mL Total Protein (6.3-8.2) g/dL Albumin (3.5-5.0) g/dL Urine Color Colorless Urine Appearance Clear (Clear) Urine pH 5.0 (5.0-8.0) Ur Specific [place] 1.009 (1.001-1.035) Urine Protein Negative (Negative) Urine Glucose (UA) Negative (Negative) Urine Ketones Negative (Negative) Urine Blood Negative (Negative) Urine Nitrite Negative (Negative) Urine Bilirubin Negative (Negative) Urine Urobilinogen <2.0 (<2.0) mg/dL Ur Leukocyte Esterase Negative (Negative) Disposition Clinical Impression: Confusion Disposition: HOME SELF-CARE Condition: Stable Instructions (If sedation given, give patient instructions): Altered Mental Status (ED) Additional Instructions: Please do follow-up with Dr. Sterling this week as planned. Please take your medications as directed. Return for increased confusion, weakness, fever, worsening symptoms or other concerns. Is patient prescribed a controlled substance at d/c from ED?: No Referrals: Lucian Sterling MD [Primary Care Provider] - 1-2 days Time of Disposition: 14:28
[2023-04-26 12:20] LABS: Basophils # (A) 0.1 k/uL (0-0.2); Basophils % (A) 1 %; Eosinophils # (A) 0.1 k/uL (0-0.7); Eosinophils % (A) 1 %; HCT 47.1 % (34.0-46.0); HGB 15.3 gm/dL (11.4-16.0); Lymphocytes # (A) 1.4 k/uL (1.0-4.8); Lymphocytes % (A) 14 %; MCH 27.5 pg (25.0-35.0); MCHC 32.4 g/dL (31.0-37.0); MCV 84.8 fL (80.0-100.0); Mean Platelet Volume 8.6; Monocytes # (A) 0.5 k/uL (0-1.0); Monocytes % (A) 5 %; Neutrophils # (A) 7.8 k/uL (1.3-7.7); Neutrophils % (A) 78 %; Platelet Count 379 k/uL (150-450); RBC 5.55 m/uL (3.80-5.40); RDW 14.1 % (11.5-15.5)
[2023-04-26 12:21] LABS: Glucose,Whole Blood 160 mg/dL (70-110)
[2023-04-26 12:29] LABS: ALT 24 U/L (4-34); AST 24 U/L (14-36); African American GFR (CKD) >90 (>60 ml/min/1.73 sqM); Albumin 4.6 g/dL (3.5-5.0); Alkaline Phosphatase 72 U/L (38-126); Anion Gap 11 mmol/L; Blood Urea Nitrogen 24 mg/dL (7-17); Calcium 10.4 mg/dL (8.4-10.2); Carbon Dioxide 24 mmol/L (22-30); Chloride 105 mmol/L (98-107); Glucose 162 mg/dL (74-99); Non-African American GFR(CKD) 81 (>60 ml/min/1.73 sqM); Potassium 4.8 mmol/L (3.5-5.1); Sodium 140 mmol/L (137-145); Total Bilirubin 0.6 mg/dL (0.2-1.3); Total Protein 7.7 g/dL (6.3-8.2)
[2023-04-26 12:40] LABS: Prothrombin Time 10.8 sec (10.0-12.5)
[2023-04-26 12:44] LABS: Partial Thromboplastin Time 21.9 sec (22.0-30.0)
[2023-04-26] MEDS: SODIUM CHLORIDE 0.9% 1,000 ML IV ONE (13:00)
--- NOTE | 2023-04-26 13:03 | CT ---
EXAMINATION TYPE: CT brain wo con CT DLP: 1124.4 mGycm, Automated exposure control for dose reduction was used. DATE OF EXAM: 04/26/2023 12:30 PM COMPARISON: 01/01/2023.. CLINICAL INDICATION:Female, 87 years old with history of Altered mental status, ams TECHNIQUE: Brain: Axial CT images of the brain were obtained with coronal and sagittal reformats created and rev iewed. Contrast used: None. Oral contrast used: None. FINDINGS: Brain: Extra-axial spaces: No abnormal extra-axial fluid collections. Ventricular system: Dilatation in proportion to cerebral atrophy. Cerebral parenchyma: Cerebral atrophy. No acute intraparenchymal hemorrhage or mass effect. The posada -white junction is well differentiated. Scattered hypoattenuating areas are seen within the white mat ter. Cerebellum: Unremarkable. Mass effect: No evidence of midline shift. Intracranial vasculature: Atherosclerotic calcifications of the intracranial vessels. Soft tissues: Normal. Calvarium/osseous structures: No depressed skull fracture. Paranasal sinuses and mastoid air cells: Mild scattered paranasal sinus disease. Visualized orbits: Bilateral aphakia IMPRESSION: 1. No acute intracranial process. 2. Nonspecific white matter changes, likely secondary to chronic small vessel ischemic disease.
--- NOTE | 2023-04-26 13:05 | XR ---
EXAMINATION TYPE: XR chest 2V DATE OF EXAM: 04/26/2023 12:35 PM CLINICAL INDICATION:Female, 87 years old with history of altered mental status; COMPARISON: Chest radiographs from 01/01/2023. TECHNIQUE: XR chest 2V Frontal and lateral views of the chest. FINDINGS: Lungs/Pleura: Prominent interstitial lung markings are seen scattered throughout the lungs with kirk ening of the diaphragm and increased lucency of the lung apices. No evidence of focal consolidation, pneumothorax or pleural effusion. Pulmonary vascularity: Pulmonary vascular congestion. Heart/mediastinum: Cardiomediastinal silhouette is unremarkable. Atherosclerotic calcifications are seen in the aorta. Musculoskeletal: Degenerative changes of the shoulder joints. IMPRESSION: 1. No acute cardiopulmonary disease process. 2. COPD changes.
[2023-04-26] MEDS ORDERED: SODIUM CHLORIDE 0.9% 500 ML 500 ML IV STA (13:09)
[2023-04-26 13:28] LABS: Appearance,Urine Clear (Clear); Bilirubin,Urine Negative (Negative); Blood,Urine Negative (Negative); Color,Urine Colorless; Glucose,Urine (UA) Negative (Negative); Ketones,Urine Negative (Negative); Leukocyte Esterase,Urine Negative (Negative); Nitrite,Urine Negative (Negative); Protein,Urine Negative (Negative); Specific Gravity,Urine 1.009 (1.001-1.035); Urobilinogen,Urine <2.0 mg/dL (<2.0)
[2023-04-26 15:26] VITALS: BP 165/84; PULSE 72; RESP 18
== END 2023-04-26 15:06 | disposition home or self-care (01) ==
LOC: EC 10:58
DX: R41.0 Disorientation, unspecified (principal); I10 Essential (primary) hypertension; I48.91 Unspecified atrial fibrillation; E03.9 Hypothyroidism, unspecified; E78.5 Hyperlipidemia, unspecified; Z79.890 Hormone replacement therapy; Z79.82 Long term (current) use of aspirin; Z79.899 Other long term (current) drug therapy; Z88.7 Allergy status to serum and vaccine; Z87.891 Personal history of nicotine dependence; Z86.73 Personal history of transient ischemic attack (TIA), and cerebral infarction without residual deficits
CPT/HCPCS: 36415; 70450; 71046; 80053; 81003; 84484; 85025; 85610; 85730; 93005; 99285

== ENCOUNTER 2024-08-15 20:14 | Inpatient (IN) | payer MEDICARE ==
--- NOTE | 2024-08-15 20:32 | ED ---
Weakness HPI - General Chief complaint: Weakness Stated complaint: AMS Time Seen by Provider: 08/15/24 20:29 Source: family, RN notes reviewed, old records reviewed Mode of arrival: wheelchair Limitations: no limitations - History of Present Illness Initial comments: This is a 89-year-old female to the ER for evaluation she presents today with family who thinks she has not been taking care of herself very well for the last few days not eating or drinking well noticed decreased activity especially when he started yesterday to today. Should go see Dr. Camargo earlier today give a urine sample concern for UTI and he sent her to the ER for evaluation, possible admission for dehydration MD Complaint: generalized weakness, lack of energy, difficulty walking -: days(s) Location: generalized Severity: severe Severity scale (1-10): 10 Consistency: constant Improves with: none Worsens with: none Context: history of similar Associated Symptoms: denies other symptoms - Related Data Home Medications Medication Instructions Recorded Confirmed Levothyroxine Sodium [Synthroid] 50 mcg PO DAILY 04/09/14 08/16/24 Aspirin EC [Ecotrin Low Dose] 81 mg PO DAILY 07/06/22 08/16/24 hydrALAZINE HCL [Apresoline] 50 mg PO TID PRN 01/01/23 08/16/24 Acetaminophen [Tylenol 8 Hour] 650 mg PO Q8H PRN 08/16/24 08/16/24 Atorvastatin [Lipitor] 10 mg PO HS 08/16/24 08/16/24 Donepezil [Aricept] 10 mg PO HS 08/16/24 08/16/24 Previous Rx's Medication Instructions Recorded amLODIPine [Norvasc] 5 mg PO BID #60 tab 08/19/24 lisinopriL [Zestril] 20 mg PO BID #60 tab 08/19/24 Allergies Allergy/AdvReac Type Severity Reaction Status Date / Time tetanus and diphtheria Allergy Unknown Verified 08/16/24 08:13 toxoids Childhood [tetanus & diphtheria toxoids] Review of Systems ROS Statement: Those systems with pertinent positive or pertinent negative responses have been documented in the HPI. ROS Other: All systems not noted in ROS Statement are negative. Past Medical History Past Medical History: Atrial Fibrillation, Chest Pain / Angina, CVA/TIA, GERD/Reflux, Hyperlipidemia, Hypertension, Osteoarthritis (OA) Additional Past Medical History / Comment(s): 2008 CVA, TIAs, allergic rhinitis, chronic sinusitis, hypothyroid, arthritis worse in legs. History of Any Multi-Drug Resistant Organisms: None Reported Past Surgical History: Adenoidectomy, Hysterectomy, Joint Replacement, Tonsillectomy Additional Past Surgical History / Comment(s): Bilateral hip replacement, partial hysterectomy, bilateral cataracts removed with lens implants. Past Anesthesia/Blood Transfusion Reactions: No Reported Reaction Past Psychological History: Anxiety Smoking Status: Former smoker Past Alcohol Use History: Daily Past Drug Use History: None Reported - Past Family History Father Family Medical History: Myocardial Infarction (MN) Additional Family Medical History / Comment(s): Father of a MN at the age of 63yrs. Mother Family Medical History: Coronary Artery Disease (CAD), Dementia Additional Family Medical History / Comment(s): Mother at the age of 82 yrs. Sister(s) Family Medical History: No Reported History Son(s) Family Medical History: No Reported History Daughter(s) Family Medical History: No Reported History General Exam General appearance: alert, in no apparent distress, anxious Head exam: Present: atraumatic, normocephalic, normal inspection Eye exam: Present: normal appearance, PERRL, EOMI. Absent: scleral icterus, conjunctival injection, periorbital swelling ENT exam: Present: normal exam, mucous membranes moist Neck exam: Present: normal inspection. Absent: tenderness, meningismus, lymphadenopathy Respiratory exam: Present: normal lung sounds bilaterally. Absent: respiratory distress, wheezes, rales, rhonchi, stridor Cardiovascular Exam: Present: regular rate, normal rhythm, normal heart sounds. Absent: systolic murmur, diastolic murmur, rubs, gallop, clicks GI/Abdominal exam: Present: soft, normal bowel sounds. Absent: distended, tenderness, guarding, rebound, rigid Extremities exam: Present: normal inspection, full ROM, normal capillary refill. Absent: tenderness, pedal edema, joint swelling, calf tenderness Back exam: Present: normal inspection Neurological exam: Present: alert, oriented X3, CN II-XII intact Psychiatric exam: Present: normal affect, normal mood Skin exam: Present: warm, dry, intact, normal color. Absent: rash Course Vital Signs 06/09/25 06/09/25 06/09/25 20:19 20:51 21:06 Temperature 98.1 F Pulse Rate 77 Pulse Rate [ Supervisor Spring Up ] Respiratory 18 Rate Blood Pressure 184/87 215/88 146/76 O2 Sat by Pulse 97 Oximetry 08/15/24 08/15/24 08/16/24 22:21 23:00 01:00 Temperature Pulse Rate 43 L 56 L 67 Pulse Rate [ Supervisor Spring Up ] Respiratory 17 17 17 Rate Blood Pressure 193/77 O2 Sat by Pulse 100 97 Oximetry 08/16/24 08/16/24 08/16/24 03:07 04:39 05:09 Temperature Pulse Rate 47 L 74 Pulse Rate [ Supervisor Spring Up ] Respiratory 17 17 Rate Blood Pressure 201/89 159/89 O2 Sat by Pulse Oximetry 08/16/24 08/16/24 08/16/24 05:15 06:02 06:53 Temperature 97.9 F Pulse Rate 54 L Pulse Rate [ Supervisor Spring Up ] Respiratory 17 Rate Blood Pressure 182/74 159/62 O2 Sat by Pulse Oximetry 08/16/24 08/16/24 08/16/24 07:34 08:50 10:19 Temperature 98.1 F Pulse Rate 50 L 57 L 65 Pulse Rate [ 50 L Supervisor Spring Up ] Respiratory 18 18 18 Rate Blood Pressure 165/99 171/69 180/81 O2 Sat by Pulse 98 97 97 Oximetry 08/16/24 08/16/24 08/16/24 14:52 16:44 18:58 Temperature Pulse Rate 65 74 73 Pulse Rate [ Supervisor Spring Up ] Respiratory 18 19 18 Rate Blood Pressure 167/67 191/69 183/84 O2 Sat by Pulse 96 97 97 Oximetry 08/16/24 08/17/24 08/17/24 22:13 03:00 07:00 Temperature Pulse Rate 56 L 58 L 66 Pulse Rate [ Supervisor Spring Up ] Respiratory 18 15 16 Rate Blood Pressure 157/75 166/65 175/69 O2 Sat by Pulse 96 95 96 Oximetry 08/17/24 08/17/24 08/17/24 12:00 15:00 16:07 Temperature 98.3 F 98.3 F Pulse Rate 55 L 65 78 Pulse Rate [ Supervisor Spring Up ] Respiratory 18 24 18 Rate Blood Pressure 181/78 164/76 187/82 O2 Sat by Pulse 96 97 97 Oximetry 08/17/24 08/17/24 18:17 20:27 Temperature 98.2 F Pulse Rate 80 90 Pulse Rate [ Supervisor Spring Up ] Respiratory 18 18 Rate Blood Pressure 178/72 167/75 O2 Sat by Pulse 97 Oximetry - Reevaluation(s) Reevaluation #1: 08/15/24 23:12 Medical records reviewed Reevaluation #2: 08/15/24 23:12 Patient symptoms unchanged Reevaluation #3: 08/15/24 23:12 Patient informed of results and questions answered Reevaluation #4: Was pt. sent in by a medical professional or institution (, [facility], EMBEDDED SOFTWARE DEVELOPMENT ENGINEER, urgent care, hospital, or custodial...) When possible be specific @ -no Did you speak to anyone other than the patient for history (EMS, parent, family, police, friend...)? What history was obtained from this source @ -no Did you review nursing and triage notes (agree or disagree)? Why? @ -agree Are old charts reviewed (outside hosp., previous admission, EMS record, old EKG, old radiological studies, urgent care reports/EKG's, custodial records)? Report findings @ -yes Differential Diagnosis (chest pain, altered mental status, abdominal pain women, abdominal pain men, vaginal bleeding, weakness, fever, dyspnea, syncope, headache, dizziness, GI bleed, back pain, seizure, CVA, palpatations, mental health, musculoskeletal)? @ -prior EKG interpreted by me (3pts min.). @ -yes X-rays interpreted by me (1pt min.). @ -yes concern for pneumonia CT interpreted by me (1pt min.). @ -yes negative for acute disease U/S interpreted by me (1pt. min.). @ -no What testing was considered but not performed or refused? (CT, X-rays, U/S, labs)? Why? @ -none What meds were considered but not given or refused? Why? @ -none Did you discuss the management of the patient with other professionals (professionals i.e. , KEVAN, EMBEDDED SOFTWARE DEVELOPMENT ENGINEER, lab, RT, psych nurse, social studies teacher, derrick boat operator, teacher, radio division officer, renal case manager)? Give summary @ -no Was smoking cessation discussed for >3mins.? @ -no Was critical care preformed (if so, how long)? @ -no Were there social determinants of health that impacted care today? How? (Homeles sness, low income, unemployed, alcoholism, drug addiction, transportation, low edu. Level, literacy, decrease access to med. care, intermediate, rehab)? @ -none Was there de-escalation of care discussed even if they declined (Discuss DNR or withdrawal of care, Hospice)? DNR status @ -no What co-morbidities impacted this encounter? (DM, HTN, Smoking, COPD, CAD, Cancer, CVA, ARF, Chemo, Hep., AIDS, mental health diagnosis, sleep apnea, morbid obesity)? @ -none Was patient admitted / discharged? Hospital course, mention meds given and route, prescriptions, significant lab abnormalities, going to OR and other pertinent info. @ - 89 female will be admitted for observation regarding dehydration likely UTI Admitted Undiagnosed new problem with uncertain prognosis? @ -no Drug Therapy requiring intensive monitoring for toxicity (Heparin, Nitro, Insulin, Cardizem)? @ -no Were any procedures done? @ -no Diagnosis/symptom? @ -UTI, possibility of pneumonia weakness nausea vomiting and diarrhea dehy dration Acute, or Chronic, or Acute on Chronic? @ -Acute Uncomplicated (without systemic symptoms) or Complicated (systemic symptoms)? @ -Complicated Side effects of treatment? @ -no Exacerbation, Progression, or Severe Exacerbation? @ -exacerbation Poses a threat to life or bodily function? How? (Chest pain, USA, MN, pneumonia, PE, COPD, DKA, ARF, appy, cholecystitis, CVA, Diverticulitis, Homicidal, Suicidal, threat to staff... and all critical care pts) @ -yes extremes of age Reevaluation #5: Differential Weakness: Hypoglycemia, shock, sepsis, hyponatremia, anemia, infection, MN, ETOH, adverse medicine reaction, overdose, stroke, this is not meant to be an all-inclusive list. - Consultations Consultation #1: Spoke with [facility] who agrees to admit this patient EKG Findings - EKG Comments: EKG Findings:: EKG is A-fib 46 QRS 105 QTc 423 - EKG Results: EKG: interpreted by MATEOD Medical Decision Making - Medical Decision Making 89 female will be admitted for observation regarding dehydration likely UTI - Lab Data Result diagrams: 08/16/24 03:57 08/18/24 06:13 Lab Results 08/15/24 08/15/24 08/15/24 Range/Units 20:37 20:37 20:37 WBC 9.43 (4.50-10.00) 10*3/uL RBC 5.54 H (4.10-5.20) 10*6/uL Hgb 15.4 H (12.0-15.0) g/dL Hct 46.2 (37.2-46.3) % MCV 83.4 (80.0-97.0) fL MCH 27.8 (27.0-32.0) pg MCHC 33.3 (32.0-37.0) g/dL Plt Count 280 (140-440) 10*3/uL MPV 11.1 (9.5-12.2) fL Immature Gran % (Auto) 0.3 % Neutrophils % 70.5 % Lymphocytes % 17.5 % Monocytes % 9.4 % Eosinophils % 1.3 % Basophils % 1.0 % Immature Gran # 0.03 (0.00-0.04) 10*3/uL Neutrophils # 6.65 (1.80-7.70) 10*3/uL Lymphocytes # 1.65 (0.90-5.00) 10*3/uL Monocytes # 0.89 (0.20-1.00) 10*3/uL Eosinophils # 0.12 (0.04-0.35) 10*3/uL Basophils # 0.09 (0.00-0.10) 10*3/uL PT 11.8 (10.0-12.5) sec INR 1.1 (<1.2) APTT 22.6 (22.0-30.0) sec Sodium 137 (137-145) mmol/L Potassium 3.6 (3.5-5.1) mmol/L Chloride 104 (98-107) mmol/L Carbon Dioxide 23 (22-30) mmol/L Anion Gap 10 mmol/L BUN 15 (7-17) mg/dL Creatinine 0.56 (0.52-1.04) mg/dL Est GFR (CKD-EPI)AfAm >90 (>60 ml/min/1.73 sqM) Est GFR (CKD-EPI)NonAf 83 (>60 ml/min/1.73 sqM) Glucose 101 H (74-99) mg/dL POC Glucose (mg/dL) (70-110) mg/dL POC Glu Lehr Tender ID Plasma Lactic Acid Ryan (0.7-2.0) mmol/L Calcium 9.2 (8.4-10.2) mg/dL Phosphorus 4.3 (2.5-4.5) mg/dL Magnesium 1.6 (1.6-2.3) mg/dL Total Bilirubin 1.3 (0.2-1.3) mg/dL AST 19 (14-36) U/L ALT 10 (4-34) U/L Alkaline Phosphatase 68 (38-126) U/L Troponin I (0.000-0.034) ng/mL NT-Pro-B Natriuret Pep 2230 pg/mL Total Protein 7.1 (6.3-8.2) g/dL Albumin 4.3 (3.5-5.0) g/dL TSH 3.310 (0.465-4.680) mIU/L 08/15/24 08/15/24 08/15/24 Range/Units 20:37 20:37 20:40 WBC (4.50-10.00) 10*3/uL RBC (4.10-5.20) 10*6/uL Hgb (12.0-15.0) g/dL Hct (37.2-46.3) % MCV (80.0-97.0) fL MCH (27.0-32.0) pg MCHC (32.0-37.0) g/dL Plt Count (140-440) 10*3/uL MPV (9.5-12.2) fL Immature Gran % (Auto) % Neutrophils % % Lymphocytes % % Monocytes % % Eosinophils % % Basophils % % Immature Gran # (0.00-0.04) 10*3/uL Neutrophils # (1.80-7.70) 10*3/uL Lymphocytes # (0.90-5.00) 10*3/uL Monocytes # (0.20-1.00) 10*3/uL Eosinophils # (0.04-0.35) 10*3/uL Basophils # (0.00-0.10) 10*3/uL PT (10.0-12.5) sec INR (<1.2) APTT (22.0-30.0) sec Sodium (137-145) mmol/L Potassium (3.5-5.1) mmol/L Chloride (98-107) mmol/L Carbon Dioxide (22-30) mmol/L Anion Gap mmol/L BUN (7-17) mg/dL Creatinine (0.52-1.04) mg/dL Est GFR (CKD-EPI)AfAm (>60 ml/min/1.73 sqM) Est GFR (CKD-EPI)NonAf (>60 ml/min/1.73 sqM) Glucose (74-99) mg/dL POC Glucose (mg/dL) 92 (70-110) mg/dL POC Glu Lehr Tender CR Erick Bartonle Plasma Lactic Acid Ryan 1.1 (0.7-2.0) mmol/L Calcium (8.4-10.2) mg/dL Phosphorus (2.5-4.5) mg/dL Magnesium (1.6-2.3) mg/dL Total Bilirubin (0.2-1.3) mg/dL AST (14-36) U/L ALT (4-34) U/L Alkaline Phosphatase (38-126) U/L Troponin I 0.020 (0.000-0.034) ng/mL NT-Pro-B Natriuret Pep pg/mL Total Protein (6.3-8.2) g/dL Albumin (3.5-5.0) g/dL TSH (0.465-4.680) mIU/L - Radiology Data Radiology results: report reviewed (CT brain negative for acute disease, chest x-ray positive for pneumonia), image reviewed Disposition Clinical Impression: Dehydration, UTI (urinary tract infection), Weakness Disposition: ADMITTED IP TO THIS [facility] Condition: Stable Is patient prescribed a controlled substance at d/c from ED?: No
[2024-08-15] MEDS: SODIUM CHLORIDE 0.9% 1,000 ML IV ONE (20:38)
[2024-08-15 20:41] LABS: Glucose,Whole Blood 92 mg/dL (70-110)
[2024-08-15 21:09] LABS: Basophils # (A) 0.09 10*3/uL (0.00-0.10); Eosinophils # (A) 0.12 10*3/uL (0.04-0.35); Eosinophils % (A) 1.3 %; HCT 46.2 % (37.2-46.3); HGB 15.4 g/dL (12.0-15.0); Lymphocytes # (A) 1.65 10*3/uL (0.90-5.00); Lymphocytes % (A) 17.5 %; MCH 27.8 pg (27.0-32.0); MCHC 33.3 g/dL (32.0-37.0); MCV 83.4 fL (80.0-97.0); Mean Platelet Volume 11.1 fL (9.5-12.2); Monocytes # (A) 0.89 10*3/uL (0.20-1.00); Monocytes % (A) 9.4 %; Neutrophils # (A) 6.65 10*3/uL (1.80-7.70); Neutrophils % (A) 70.5 %; Platelet Count 280 10*3/uL (140-440); RBC 5.54 10*6/uL (4.10-5.20); RDW 12.7 % (11.5-14.5); WBC 9.43 10*3/uL (4.50-10.00)
[2024-08-15 21:29] LABS: ALT 10 U/L (4-34); AST 19 U/L (14-36); African American GFR (CKD) >90 (>60 ml/min/1.73 sqM); Albumin 4.3 g/dL (3.5-5.0); Alkaline Phosphatase 68 U/L (38-126); Anion Gap 10 mmol/L; Blood Urea Nitrogen 15 mg/dL (7-17); Calcium 9.2 mg/dL (8.4-10.2); Carbon Dioxide 23 mmol/L (22-30); Chloride 104 mmol/L (98-107); Glucose 101 mg/dL (74-99); Magnesium 1.6 mg/dL (1.6-2.3); Non-African American GFR(CKD) 83 (>60 ml/min/1.73 sqM); Phosphorus 4.3 mg/dL (2.5-4.5); Sodium 137 mmol/L (137-145); Total Bilirubin 1.3 mg/dL (0.2-1.3); Total Protein 7.1 g/dL (6.3-8.2)
--- NOTE | 2024-08-15 21:32 | XR ---
EXAMINATION TYPE: XR chest 2V DATE OF EXAM: 08/15/2024 8:59 PM COMPARISON: None. CLINICAL INDICATION: Female, 89 years old with history of Weakness, TECHNIQUE: XR chest 2V view(s) obtained. FINDINGS: The heart size is normal. The pulmonary vasculature is normal. Posterior infiltrate is present on the lateral projection. Frontal projection appears normal. IMPRESSION: 1. Posterior infiltrate. Correlate for pneumonia. Consider aspiration. Follow-up with two-view chest. [facility], , 08/15/2024 9:30 PM
[2024-08-15 21:33] LABS: INR 1.1 (<1.2); Partial Thromboplastin Time 22.6 sec (22.0-30.0); Prothrombin Time 11.8 sec (10.0-12.5)
[2024-08-15 21:36] LABS: NT-Pro-B-Type Natriuretic Pept 2230 pg/mL
[2024-08-15 22:09] LABS: Potassium 3.6 mmol/L (3.5-5.1)
[2024-08-15] MEDS ORDERED: MORPHINE SULFATE 4 MG/ML SYRINGE IV PRN (23:05)
[2024-08-15] MEDS ORDERED: NALOXONE 0.4 MG/ML 1 ML VIAL IV PRN (23:05)
[2024-08-15] MEDS ORDERED: ONDANSETRON 4 MG/2 ML VIAL IVP PRN (23:05)
[2024-08-15] MEDS ORDERED: LORazepam 1 MG/0.5 ML VIAL IV PRN (23:06)
--- NOTE | 2024-08-16 00:02 | CT ---
EXAM: CT Head Without Intravenous Contrast CLINICAL HISTORY: ITS.REASON CT Reason: ams TECHNIQUE: Axial computed tomography images of the head/brain without intravenous contrast. CTDI is 49.1 mGy and DLP is 1200.4 mGy-cm. This CT exam was performed using one or more of the following dose reduction techniques: automated exposure control, adjustment of the mA and/or kV according to patient size, and/or use of iterative reconstruction technique. COMPARISON: No relevant prior studies available. FINDINGS: No acute intracranial hemorrhage. No midline shift or mass effect. The territorial posada-white matter differentiation is maintained throughout. Age-related cerebral volume loss. Periventricular and subcortical white matter hypoattenuation, consistent with chronic microangiopathy. The visualized orbits appear grossly unremarkable. The calvarium is intact. The visualized paranasal sinuses and mastoid air cells are grossly clear. IMPRESSION: No acute intracranial hemorrhage, midline shift, or mass effect.
[2024-08-16] MEDS: SODIUM CHLORIDE 0.9% 1,000 ML IV SCH (00:05)
[2024-08-16] MEDS: LORazepam 1 MG/0.5 ML VIAL IV STA (02:00)
[2024-08-16 05:02] LABS: Basophils # (A) 0.07 10*3/uL (0.00-0.10); Basophils % (A) 0.8 %; Eosinophils # (A) 0.13 10*3/uL (0.04-0.35); Eosinophils % (A) 1.5 %; HCT 41.2 % (37.2-46.3); HGB 13.4 g/dL (12.0-15.0); Lymphocytes # (A) 1.44 10*3/uL (0.90-5.00); Lymphocytes % (A) 16.9 %; MCH 27.5 pg (27.0-32.0); MCHC 32.5 g/dL (32.0-37.0); MCV 84.6 fL (80.0-97.0); Mean Platelet Volume 11.7 fL (9.5-12.2); Monocytes % (A) 9.4 %; Neutrophils # (A) 6.05 10*3/uL (1.80-7.70); Neutrophils % (A) 71.2 %; Platelet Count 269 10*3/uL (140-440); RBC 4.87 10*6/uL (4.10-5.20); RDW 12.9 % (11.5-14.5); WBC 8.51 10*3/uL (4.50-10.00)
[2024-08-16 05:17] LABS: ALT 7 U/L (4-34); AST 15 U/L (14-36); African American GFR (CKD) >90 (>60 ml/min/1.73 sqM); Albumin 3.5 g/dL (3.5-5.0); Alkaline Phosphatase 62 U/L (38-126); Anion Gap 10 mmol/L; Blood Urea Nitrogen 13 mg/dL (7-17); Calcium 9.1 mg/dL (8.4-10.2); Carbon Dioxide 25 mmol/L (22-30); Chloride 103 mmol/L (98-107); Glucose 80 mg/dL (74-99); Magnesium 1.6 mg/dL (1.6-2.3); Non-African American GFR(CKD) 82 (>60 ml/min/1.73 sqM); Phosphorus 4.1 mg/dL (2.5-4.5); Potassium 3.3 mmol/L (3.5-5.1); Sodium 138 mmol/L (137-145); Total Bilirubin 1.2 mg/dL (0.2-1.3); Total Protein 6.1 g/dL (6.3-8.2)
[2024-08-16 05:24] LABS: Appearance,Urine Clear (Clear); Bilirubin,Urine Negative (Negative); Blood,Urine Negative (Negative); Color,Urine Light Yellow; Glucose,Urine (UA) Negative (Negative); Ketones,Urine 2+ (Negative); Leukocyte Esterase,Urine Negative (Negative); Nitrite,Urine Negative (Negative); Protein,Urine Negative (Negative); Specific Gravity,Urine 1.014 (1.001-1.035); Urobilinogen,Urine <2.0 mg/dL (<2.0)
[2024-08-16] MEDS: hydrALAZINE HCL 50 MG TAB PO SCH ×2 (06:06→15:24)
[2024-08-16] MEDS ORDERED: NON FORMULARY DRUG (Aspirin Ec 81 MG Tablet) PO SCH (09:00)
[2024-08-16] MEDS: LEVOTHYROXINE 50 MCG TAB PO SCH (09:11)
[2024-08-16] MEDS: ASPIRIN 81 MG PO SCH (10:20)
[2024-08-16] MEDS: POTASSIUM CHLORIDE ER 10 MEQ TAB.ER.PRT PO STA (10:20)
[2024-08-16] MEDS: lisinopriL 20 MG TAB PO SCH (10:20)
[2024-08-16] MEDS: amLODIPine 10 MG TAB PO SCH (10:21)
[2024-08-16] MEDS: ENOXAPARIN 40 MG/0.4 ML SYRINGE SQ SCH (10:21)
--- NOTE | 2024-08-16 11:43 | P.CRDCN ---
History of Present Illness History of present illness: HISTORY OF PRESENTING ILLNESS This is a pleasant 89-year-old female past medical history significant for hypertension, dyslipidemia, dementia, PACs with sick sinus syndrome and CVA. She does not follow in the office with a drier unloader. She saw Dr. Schwartz in 2019.. We have been asked to see in consultation for bradycardia. She is seen and examined resting comfortably in bed in the emergency department with her son at the bedside. Her son indicates he brought her to the hospital for episodes of confusion. She has apparently been hallucinating and weak. EKG is sinus rhythm with PACs. Heart rate in the 50s and blood pressure 180/81. Laboratory data reviewed, WBC 8.5, hemoglobin 18.4, platelets 269, sodium 138, potassium 3.3, creatinine 0.58 TSH 3.31, NT proBNP 2230 and troponin 0.02. Current daily cardiac medications include Lipitor 10 mg at bedtime, hydralazine 50 mg 3 times daily as needed, amlodipine/benazepril 10/40 mg daily and aspirin 81 mg daily. Most recent echocardiogram obtained in 2018 revealed preserved LV systolic function with ejection fraction 55 to 60%, mild aortic stenosis with a mean gradient of 10 mmHg and mildly thickened mitral leaflets. REVIEW OF SYSTEMS At the time of my exam: CONSTITUTIONAL: Denies fever or chills. CARDIOVASCULAR: Denies chest pain, shortness of breath, orthopnea, PND or palpitations. RESPIRATORY: Denies cough. GASTROINTESTINAL: Denies abdominal pain, diarrhea, constipation, nausea or vomiting. MUSCULOSKELETAL: Denies myalgias. NEUROLOGIC: Denies numbness, tingling, headache or weakness. ENDOCRINE: Denies fatigue, weight change, polydipsia or polyurina. GENITOURINARY: Denies burning, hematuria or urgency with micturation. HEMATOLOGIC: Denies history of anemia or bleeding. PHYSICAL EXAMINATION CONSTITUTIONAL: No apparent distress. HEENT: Head is normocephalic. Pupils are equal, round. Sclerae anicteric. Mucous membranes of the mouth are moist. No JVD. No carotid bruit. CHEST EXAMINATION: Lungs are clear to auscultation. No chest wall tenderness is noted on palpation or with deep breathing. HEART EXAMINATION: Regular rate and rhythm. S1, S2 heard. Systolic ejection murmur at the base, no gallops or rub. ABDOMEN: Soft, nontender. EXTREMITIES: 2+ peripheral pulses, no lower extremity edema and no calf tenderness. NEUROLOGIC EXAMINATION: Patient is awake, alert and disoriented ASSESSMENT Altered mental status Bradycardia, chronic and stable Hypertension Dyslipidemia PLAN Resume home cardiac and blood pressure medications. Obtain 2D echocardiogram and Doppler study to assess cardiac structure and function. Bradycardia is chronic and stable, she has known sick sinus syndrome and should not take any rate lowering agents. Heart rate is in the 50s with PACs. Thank you kindly for this consultation. Nurse Practitioner note has been reviewed, I agree with a documented findings and plan of care. Patient was seen and examined. Past Medical History Past Medical History: Atrial Fibrillation, Chest Pain / Angina, CVA/TIA, GERD/Reflux, Hyperlipidemia, Hypertension, Osteoarthritis (OA) Additional Past Medical History / Comment(s): 2007 CVA, TIAs, allergic rhinitis, chronic sinusitis, hypothyroid, arthritis worse in legs. History of Any Multi-Drug Resistant Organisms: None Reported Past Surgical History: Adenoidectomy, Hysterectomy, Joint Replacement, Ton sillectomy Additional Past Surgical History / Comment(s): Bilateral hip replacement, partial hysterectomy, bilateral cataracts removed with lens implants. Past Anesthesia/Blood Transfusion Reactions: No Reported Reaction Past Psychological History: Anxiety Smoking Status: Former smoker Past Alcohol Use History: Daily Past Drug Use History: None Reported - Past Family History Father Family Medical History: Myocardial Infarction (SD) Additional Family Medical History / Comment(s): Father of a SD at the age of 63yrs. Mother Family Medical History: Coronary Artery Disease (CAD), Dementia Additional Family Medical History / Comment(s): Mother at the age of 82 yrs. Sister(s) Family Medical History: No Reported History Son(s) Family Medical History: No Reported History Daughter(s) Family Medical History: No Reported History Medications and Allergies Home Medications Medication Instructions Recorded Confirmed Type Levothyroxine Sodium [Synthroid] 50 mcg PO DAILY 04/09/14 08/16/24 History Aspirin EC [Ecotrin Low Dose] 81 mg PO DAILY 07/06/22 08/16/24 History hydrALAZINE HCL [Apresoline] 50 mg PO TID PRN 01/01/23 08/16/24 History Acetaminophen [Tylenol 8 Hour] 650 mg PO Q8H PRN 08/16/24 08/16/24 History Atorvastatin [Lipitor] 10 mg PO HS 08/16/24 08/16/24 History Donepezil [Aricept] 10 mg PO HS 08/16/24 08/16/24 History amLODIPine BESYLATE/BENAZEPRIL 1 cap PO DAILY 08/16/24 08/16/24 History [Lotrel 10-40 mg Capsule] Allergies Allergy/AdvReac Type Severity Reaction Status Date / Time tetanus and diphtheria Allergy Unknown Verified 08/16/24 08:13 toxoids Childhood [tetanus & diphtheria toxoids] Physical Exam Vitals: Vital Signs Temp Pulse Pulse Resp BP Pulse Ox 08/16/24 10:19 65 18 180/81 97 08/16/24 08:50 57 L 18 171/69 97 08/16/24 07:34 98.1 F 50 L 50 L 18 165/99 98 08/16/24 06:53 159/62 08/16/24 06:02 97.9 F 54 L 17 08/16/24 05:15 182/74 08/16/24 05:09 159/89 08/16/24 04:39 74 17 08/16/24 03:07 47 L 17 201/89 08/16/24 01:00 67 17 97 08/15/24 23:00 56 L 17 193/77 100 08/15/24 22:21 43 L 17 08/15/24 21:06 146/76 08/15/24 20:51 215/88 08/15/24 20:19 98.1 F 77 18 184/87 97 Intake and Output 08/15/24 08/16/24 08/16/24 22:59 06:59 14:59 Other: Weight 53.07 kg Results 08/16/24 03:57 08/16/24 03:57 Cardiac Enzymes 08/15/24 08/15/24 08/16/24 Range/Units 20:37 20:37 03:57 AST 19 15 (14-36) U/L Troponin I 0.020 (0.000-0.034) ng/mL Coagulation 08/15/24 Range/Units 20:37 PT 11.8 (10.0-12.5) sec APTT 22.6 (22.0-30.0) sec CBC 08/15/24 08/16/24 Range/Units 20:37 03:57 WBC 9.43 8.51 (4.50-10.00) 10*3/uL RBC 5.54 H 4.87 (4.10-5.20) 10*6/uL Hgb 15.4 H 13.4 (12.0-15.0) g/dL Hct 46.2 41.2 (37.2-46.3) % Plt Count 280 269 (140-440) 10*3/uL Comprehensive Metabolic Panel 08/15/24 08/16/24 Range/Units 20:37 03:57 Sodium 137 138 (137-145) mmol/L Potassium 3.6 3.3 L (3.5-5.1) mmol/L Chloride 104 103 (98-107) mmol/L Carbon Dioxide 23 25 (22-30) mmol/L BUN 15 13 (7-17) mg/dL Creatinine 0.56 0.58 (0.52-1.04) mg/dL Glucose 101 H 80 (74-99) mg/dL Calcium 9.2 9.1 (8.4-10.2) mg/dL AST 19 15 (14-36) U/L ALT 10 7 (4-34) U/L Alkaline Phosphatase 68 62 (38-126) U/L Total Protein 7.1 6.1 L (6.3-8.2) g/dL Albumin 4.3 3.5 (3.5-5.0) g/dL Current Medications Generic Name Dose Route Start Last Admin Trade Name Freq PRN Reason Stop Dose Admin Amlodipine Besylate 10 mg 08/16/24 09:00 08/16/24 10:21 Amlodipine 10 Mg Tab PO 10 mg DAILY ZEB Administration Aspirin 81 mg 08/16/24 09:00 08/16/24 10:20 Aspirin 81 Mg PO 81 mg DAILY ZEB Administration Atorvastatin Calcium 10 mg 08/16/24 21:00 Atorvastatin 10 Mg Tab PO HS ZEB Enoxaparin Sodium 40 mg 08/16/24 09:30 08/16/24 10:21 Enoxaparin 40 Mg/0.4 Ml Syringe SQ 40 mg DAILY ZEB Administration Hydralazine HCl 50 mg 08/16/24 16:00 Hydralazine Hcl 50 Mg Tab PO TID ZEB Sodium Chloride 1,000 mls @ 75 mls/hr 08/15/24 23:15 08/16/24 00:05 Saline 0.9% IV 75 mls/hr .[id number] ZEB Administration Levothyroxine Sodium 50 mcg 08/16/24 09:00 08/16/24 09:11 Levothyroxine 50 Mcg Tab PO 50 mcg DAILY ZEB Administration Lisinopril 40 mg 08/16/24 09:15 08/16/24 10:20 Lisinopril 20 Mg Tab PO 40 mg DAILY ZEB Administration Lorazepam 0.5 mg 08/15/24 23:06 Lorazepam 1 Mg/0.5 Ml Vial IV Q6HR PRN Anxiety Morphine Sulfate 4 mg 08/15/24 23:05 Morphine Sulfate 4 Mg/Ml Syringe IV Q4HR PRN Severe Pain (Scale 7 to 10) Naloxone HCl 0.2 mg 08/15/24 23:05 Naloxone 0.4 Mg/Ml 1 Ml Vial IV Q2M PRN Opioid Reversal Ondansetron HCl 4 mg 08/15/24 23:05 Ondansetron 4 Mg/2 Ml Vial IVP Q8HR PRN Nausea And Vomiting Intake and Output 08/15/24 08/16/24 08/16/24 22:59 06:59 14:59 Other: Weight 53.07 kg 08/16/24 03:57 08/16/24 03:57
--- NOTE | 2024-08-16 15:19 | P.HPIM ---
History of Present Illness H&P Date: 08/16/24 Patient is a 89-year-old female with atrial fibrillation (not on anticoagulation), CAD, history of sick sinus syndrome, history of CVA/TIA, GERD, hyperlipidemia, hypertension, osteoarthritis, hypothyroidism, anxiety here for altered mental status. Patient is a poor historian and majority of history was taken from family at bedside. Family reported that patient has been taking care of herself very well for the week and has not been eating or drinking well. Per patient, she forgets to eat and she does not feel hungry or thirsty. Usually, patient sits and sleeps on a chair and does not ambulate on her own. She is not able to perform her own ADLs. Family reported that they noticed a decrease in activity since yesterday. They sought care with their PCP and wanted to provide a urine sample but they advised him to send the patient to the ER for possible dehydration. Family also reported that she has been having confusion and forgetfulness for the past few years but it has worsened in the last few days, as well as urinary incontinence. Denied chest pain, palpitation, shortness of breath, abdominal pain, recent trauma, recent fall, LOC, diarrhea, nausea, vomiting, dysuria, fever, chills, focal weakness, changes in speech, or changes in vision. On admission: Vitals: Temp 98.1 F, pulse rate 77, RR 18, BP 184/87, O2 saturation 97% on room air Labs: WBC 9.4, hemoglobin 15.4, MCV 83.4, platelet count 280,000, sodium 137, potassium 3.6, bicarb 23, BUN 15, creatinine 0.5, glucose 101, lactic acid 1.1, calcium 9.2, phosphorus 4.3, magnesium 1.6, troponin 0.02, proBNP 2230, TSH 3.3. Liver enzymes within normal limits. Albumin 4.3. Urinalysis showed +2 ketones, negative glucose, negative blood, negative nitrates, negative leukocyte esterase. Imaging: Brain CT showed no acute intracranial process. Chest x-ray showed noted a posterior infiltrate. EKG showed sinus bradycardia with a rate of 46, left axis deviation, no ST-T changes, poor R wave progression, QTc 423 MS ED documentation reviewed. Review of systems: Pertinent positives and negatives as discussed in HPI, a complete review of systems was performed and all other systems are negative. Social history: Tobacco: former smoker. Quit 40 years ago. Alcohol: a glass of wine a day Recreational drugs: none Travel: none Physical examination: Vital signs reviewed General: non toxic, no distress, appears at stated age, room air, frail and thin appearing Derm: no unusual rashes/lesions, warm Head: atraumatic, normocephalic, symmetric Eyes: EOMI, anicteric sclera, pupils equal round reactive to light ENT: Nose and ears atraumatic Neck: No cervical lymphadenopathy, trachea midline, supple Mouth: no lip lesion, mucus membranes moist Cardiovascular: S1S2 reg, no murmur Lungs: CTA bilateral, no rhonchi, no rales, no accessory muscle use Abdominal: soft, nondistended, nontender to palpation, no guarding Ext: muscle strength 3 out of 5 in distal lower extremities, 4/5 in distal upper extremities, rest of extremities 5/5 grossly, no gross muscle atrophy, no contractures, positive dorsalis pedis pulse bilateral, no edema Neuro: CN II-XI grossly intact, no gross focal neuro deficits Psych: Alert and oriented x 3, appropriate affect and mood Assessment/Plan: The patient is admitted with an anticipated greater than 2 midnight stay for evaluation of acute encephalopathy Active: #. Acute encephalopathy, likely secondary to hypoperfusion, rule out other causes #. Known history of sick sinus syndrome Hemoglobin elevated. Urinalysis shows only positive ketones Imaging showed no acute process ongoing EKG showed sinus bradycardia with a rate of 46, left axis deviation, no ST-T changes, poor R wave progression, QTc 423 MS. Has known history of bradycardia on event monitor report in 2018 IV fluids initiated in the ED. 1 L bolus given. Continue with 0.9 normal saline 75 cc/h Cardiac monitoring Consult cardiology Consult PT/OT #. Hypertensive urgency Blood pressure 184/87 on admission Continue to monitor BP. Goal SBP 150s On home lisinopril 40 mg p.o. daily. And hydralazine 50 mg p.o. 3 times daily Added Procardia 30 mg p.o. daily #. Hypokalemia Potassium 3.3 today Potassium chloride 30 mEq p.o. given today. Recheck potassium Chronic Conditions: #. Atrial fibrillation #. CAD #. History of CVA/TIA #. GERD #. Hyperlipidemia #. Hypertension #. Osteoarthritis #. Hypothyroidism #. Anxiety Continue home Lipitor, Synthroid 50 mcg, lisinopril 40 mg, hydralazine 50 mg p.o. 3 times daily DVT ppx: Lovenox 40 mg subcu daily CODE STATUS: Full Discussed with: patient and family Anticipated discharge place: pending clinical course Tali Gallagher MD PGY-1 Internal Medicine Dictation was produced using [employer] dictation software. please excuse any grammatical, word or spelling errors. Past Medical History Past Medical History: Atrial Fibrillation, Chest Pain / Angina, CVA/TIA, GERD/Reflux, Hyperlipidemia, Hypertension, Osteoarthritis (OA) Additional Past Medical History / Comment(s): 2007 CVA, TIAs, allergic rhinitis, chronic sinusitis, hypothyroid, arthritis worse in legs. History of Any Multi-Drug Resistant Organisms: None Reported Past Surgical History: Adenoidectomy, Hysterectomy, Joint Replacement, Tonsillectomy Additional Past Surgical History / Comment(s): Bilateral hip replacement, partial hysterectomy, bilateral cataracts removed with lens implants. Past Anesthesia/Blood Transfusion Reactions: No Reported Reaction Past Psychological History: Anxiety Smoking Status: Former smoker Past Alcohol Use History: Daily Past Drug Use History: None Reported - Past Family History Father Family Medical History: Myocardial Infarction (IN) Additional Family Medical History / Comment(s): Father of a IN at the age of 63yrs. Mother Family Medical History: Coronary Artery Disease (CAD), Dementia Additional Family Medical History / Comment(s): Mother at the age of 82 yrs. Sister(s) Family Medical History: No Reported History Son(s) Family Medical History: No Reported History Daughter(s) Family Medical History: No Reported History Medications and Allergies Home Medications Medication Instructions Recorded Confirmed Type Levothyroxine Sodium [Synthroid] 50 mcg PO DAILY 04/09/14 08/16/24 History Aspirin EC [Ecotrin Low Dose] 81 mg PO DAILY 07/06/22 08/16/24 History hydrALAZINE HCL [Apresoline] 50 mg PO TID PRN 01/01/23 08/16/24 History Acetaminophen [Tylenol 8 Hour] 650 mg PO Q8H PRN 08/16/24 08/16/24 History Atorvastatin [Lipitor] 10 mg PO HS 08/16/24 08/16/24 History Donepezil [Aricept] 10 mg PO HS 08/16/24 08/16/24 History amLODIPine [Norvasc] 5 mg PO BID #60 tab 08/19/24 Rx lisinopriL [Zestril] 20 mg PO BID #60 tab 08/19/24 Rx Allergies Allergy/AdvReac Type Severity Reaction Status Date / Time tetanus and diphtheria Allergy Unknown Verified 08/16/24 08:13 toxoids Childhood [tetanus & diphtheria toxoids] Physical Exam Vitals: Vital Signs Temp Pulse Pulse Resp BP Pulse Ox 08/16/24 07:34 98.1 F 50 L 50 L 18 165/99 98 08/16/24 06:53 159/62 08/16/24 06:02 97.9 F 54 L 17 08/16/24 05:15 182/74 08/16/24 05:09 159/89 08/16/24 04:39 74 17 08/16/24 03:07 47 L 17 201/89 08/16/24 01:00 67 17 97 08/15/24 23:00 56 L 17 193/77 100 08/15/24 22:21 43 L 17 08/15/24 21:06 146/76 08/15/24 20:51 215/88 08/15/24 20:19 98.1 F 77 18 184/87 97 Intake and Output 08/15/24 08/16/24 08/16/24 22:59 06:59 14:59 Other: Weight 53.07 kg Results CBC & Chem 7: 08/16/24 03:57 08/18/24 06:13 Labs: Abnormal Lab Results - Last 24 Hours (Table) 08/15/24 08/15/24 08/16/24 Range/Units 20:37 20:37 03:57 RBC 5.54 H (4.10-5.20) 10*6/uL Hgb 15.4 H (12.0-15.0) g/dL Potassium 3.3 L (3.5-5.1) mmol/L Glucose 101 H (74-99) mg/dL Total Protein 6.1 L (6.3-8.2) g/dL Urine Ketones (Negative) 08/16/24 Range/Units 04:44 RBC (4.10-5.20) 10*6/uL Hgb (12.0-15.0) g/dL Potassium (3.5-5.1) mmol/L Glucose (74-99) mg/dL Total Protein (6.3-8.2) g/dL Urine Ketones 2+ H (Negative) Assessment and Plan Assessment: Attestation Attestation/ Competitive Shopper Note: Attestation to H&P, Participation (I saw and evaluated the patient with the Resident, and I reviewed and discussed the patient with the Resident and agree with the Resident's findings and plans as documented above., management reviewed and discussed), I agree with findings & plan, Provider Signature (SIMONE SAUCEDA, PATRICIA Cowan Time with Patient: Greater than 30
[2024-08-16] MEDS: NIFEdipine XL 30 MG TAB.ER.24 PO STA (15:24)
[2024-08-16] MEDS: ATORVASTATIN 10 MG TAB PO SCH (21:29)
[2024-08-17 06:52] LABS: African American GFR (CKD) >90 (>60 ml/min/1.73 sqM); Anion Gap 14 mmol/L; Blood Urea Nitrogen 12 mg/dL (7-17); Calcium 9.2 mg/dL (8.4-10.2); Carbon Dioxide 21 mmol/L (22-30); Chloride 101 mmol/L (98-107); Glucose 80 mg/dL (74-99); Non-African American GFR(CKD) 86 (>60 ml/min/1.73 sqM); Potassium 3.4 mmol/L (3.5-5.1); Sodium 136 mmol/L (137-145)
--- NOTE | 2024-08-17 07:29 | CA ---
Transthoracic Echo Report Name: Nina Hamlin Age: 89 Gender: F : 1935 Exam Date: 08/16/2024 13:33 Exam Location: [facility] Ht (in): 64 Wt (lb): 117 Ordering Physician: Jennifer Stovall Attending/Referring Phys: [id number], Sia Comparator Operator Long Martinez, RDLARS Procedure CPT: Indications: Murmur Cardiac Hx: Technical Quality: Good Contrast 1: Total Dose (mL): Contrast 2: Total Dose (mL): MEASUREMENTS (Male / Female) Normal Values 2D ECHO LV Diastolic Diameter PLAX 4.7 cm 4.2 - 5.9 / 3.9 - 5.3 cm LV Systolic Diameter PLAX 3.7 cm IVS Diastolic Thickness 1.1 cm 0.6 - 1.0 / 0.6 - 0.9 cm LVPW Diastolic Thickness 1.1 cm 0.6 - 1.0 / 0.6 - 0.9 cm LV Relative Wall Thickness 0.5 RV Internal Dim ED PLAX 3.2 cm LVOT Diameter 1.8 cm Aortic Root Diameter 2.8 cm LA Systolic Diameter LX 4.1 cm 3.0 - 4.0 / 2.7 - 3.8 cm LV Diastolic Volume MOD 4C 94.5 cm??? LV Systolic Volume MOD 4C 44.7 cm??? LV Ejection Fraction MOD 4C 52.7 % LV Cardiac Index MOD 4C 1935.3 cm???/min???m??? LV Diastolic Length 4C 7.9 cm LV Systolic Length 4C 6.7 cm LV Diastolic Volume MOD 2C 113.0 cm??? LV Systolic Volume MOD 2C 53.3 cm??? LV Ejection Fraction MOD 2C 52.8 % LV Cardiac Index MOD 2C 2319.1 cm???/min???m??? LV Diastolic Length 2C 8.1 cm LV Systolic Length 2C 7.1 cm LA Volume 72.7 cm??? 18 - 58 / 22 - 52 cm??? LA Volume Index 47.1 cm???/m??? 16 - 28 cm???/m??? DOPPLER AI Peak Velocity 355.9 cm/s AI Peak Gradient 50.7 mmHg AI Pressure Half Time 579.8 ms MV Area PHT 3.3 cm??? Mitral E Point Velocity 84.8 cm/s Mitral A Point Velocity 112.3 cm/s Mitral E to A Ratio 0.8 MV Deceleration Time 229.6 ms TR Peak Velocity 212.3 cm/s TR Peak Gradient 18.0 mmHg Right Atrial Pressure 5.0 mmHg Pulmonary Artery Systolic Pressu 23.0 mmHg Right Ventricular Systolic Press 23.0 mmHg FINDINGS Left Ventricle Left ventricular ejection fraction is estimated at 50-55 %. Mild concentric left ventricular hypertrophy. left ventricular cavity size normal. No obvious regional wall motion abnormalities. Right Ventricle Normal right ventricular size and function. Right ventricular systolic pressure within normal limits. Right Atrium Normal right atrial size. Left Atrium Mildly increased left atrial diameter. Moderately increased left atrial volume. Mitral Valve Mitral annular calcification. Mitral valve thickened. No mitral stenosis. Mild to moderate mitral regurgitation. Aortic Valve Trileaflet aortic valve. Diffuse thickening (sclerosis) of the aortic valve cusps without reduced excursion. [id number] aortic regurgitation. Tricuspid Valve Structurally normal tricuspid valve. No tricuspid stenosis. Mild tricuspid regurgitation. Pulmonic Valve Pulmonic valve not well visualized. No pulmonic stenosis. Trace pulmonic regurgitation. Pericardium Small pericardial effusion. Aorta Normal size aortic root and proximal ascending aorta. CONCLUSIONS 1. Left ventricular systolic function borderline normal 2. Mild to moderate mitral and aortic regurgitation 3. Mild tricuspid regurgitation with no evidence of pulmonary hypertension Previewed by: Dr. Jimmy Waller MD (Electronically Signed) Final Date: 17 August 2024 07:29
[2024-08-17] MEDS ORDERED: LEVOTHYROXINE 50 MCG TAB PO SCH (08:54)
[2024-08-17] MEDS ORDERED: NIFEdipine XL 30 MG TAB.ER.24 PO SCH (09:00)
--- NOTE | 2024-08-17 10:10 | P.PN ---
Subjective HISTORY OF PRESENT ILLNESS: This is a pleasant 89-year-old female past medical history significant for hypertension, dyslipidemia, dementia, PACs with sick sinus syndrome and CVA. 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 She saw Dr. Schwartz in 2019.. We have been asked to see in consultation for bradycardia. She is seen and examined resting comfortably in bed in the emergency department with her son at the bedside. Her son indicates he brought her to the hospital for episodes of confusion. She has apparently been hallucinating and weak. EKG is sinus rhythm with PACs. Heart rate in the 50s and blood pressure 180/81. Laboratory data reviewed, WBC 8.5, hemoglobin 18.4, platelets 269, sodium 138, potassium 3.3, creatinine 0.58 TSH 3.31, NT proBNP 2230 and troponin 0.02. Current daily cardiac medications include Lipitor 10 mg at bedtime, hydralazine 50 mg 3 times daily as needed, amlodipine/benazepril 10/40 mg daily and aspirin 81 mg daily. Most recent echocardiogram obtained in 2018 revealed preserved LV systolic function with ejection fraction 55 to 60%, mild aortic stenosis with a mean gradient of 10 mmHg and mildly thickened mitral leaflets. 08/17/2024 Patient examined this morning in the emergency room. Patient currently denies chest pain or pressure. She denies shortness of breath. Blood pressure remains elevated. Telemetry reveals heart rate in the 50s. Echocardiogram completed revealing ejection fraction 50 to 55%, mild concentric LVH, mild tricuspid regurgitation, mild to moderate mitral and aortic regurgitation and small pericardial effusion PHYSICAL EXAM: VITAL SIGNS: Reviewed. GENERAL: Well-developed in no acute distress. NECK: Supple. No JVD or thyromegaly LUNGS: Respirations even and unlabored. Lungs essentially clear to auscultation bilaterally. HEART: Regular rate and rhythm. S1 and S2 heard. EXTREMITIES: Normal range of motion. No clubbing or cyanosis. Peripheral pulses intact. No lower extremity edema ASSESSMENT: Altered mental status Bradycardia, chronic and stable Known sick sinus syndrome Hypertension Dyslipidemia Hypokalemia PLAN: Discontinue Procardia Add amlodipine 5 mg twice a day Change lisinopril to 20 mg twice a day Replace potassium Patient is stable from a cardiac standpoint with no further inpatient recommendations We will sign off. Please reconsult if needed. Nurse practitioner note has been reviewed by physician. Signing provider agrees with the documented findings, assessment, and plan of care documented by KNUCKLER as a scribe. Objective - Vital Signs Vital signs: Vital Signs Temp 98.1 F 08/16/24 07:34 Pulse 66 08/17/24 07:00 Resp 16 08/17/24 07:00 BP 175/69 08/17/24 07:00 Pulse Ox 96 08/17/24 07:00 FiO2 - Labs CBC & Chem 7: 08/16/24 03:57 08/17/24 05:33 Labs: Abnormal Lab Results - Last 24 Hours (Table) 08/17/24 Range/Units 05:33 Sodium 136 L (137-145) mmol/L Potassium 3.4 L (3.5-5.1) mmol/L Carbon Dioxide 21 L (22-30) mmol/L Creatinine 0.51 L (0.52-1.04) mg/dL
[2024-08-17 11:25] LABS: African American GFR (CKD) >90 (>60 ml/min/1.73 sqM); Anion Gap 13 mmol/L; Blood Urea Nitrogen 14 mg/dL (7-17); Calcium 9.4 mg/dL (8.4-10.2); Carbon Dioxide 20 mmol/L (22-30); Chloride 103 mmol/L (98-107); Glucose 82 mg/dL (74-99); Non-African American GFR(CKD) 86 (>60 ml/min/1.73 sqM); Potassium 3.5 mmol/L (3.5-5.1); Sodium 136 mmol/L (137-145)
[2024-08-17] MEDS: POTASSIUM CHLORIDE ER 20 MEQ TAB.ER PO STA (12:34)
[2024-08-17] MEDS: amLODIPine 5 MG TAB PO SCH (12:36)
[2024-08-17] MEDS: lisinopriL 20 MG TAB PO SCH (12:38)
--- NOTE | 2024-08-17 16:17 | P.PN ---
Subjective Progress Note Date: 08/17/24 Patient is a 89-year-old female with atrial fibrillation (not on anticoagulation), CAD, history of sick sinus syndrome, history of CVA/TIA, GERD, hyperlipidemia, hypertension, osteoarthritis, hypothyroidism, anxiety here for altered mental status. Patient is a poor historian and majority of history was taken from family at bedside. Family reported that patient has been taking care of herself very well for the week and has not been eating or drinking well. Per patient, she forgets to eat and she does not feel hungry or thirsty. Usually, patient sits and sleeps on a chair and does not ambulate on her own. She is not able to perform her own ADLs. Family reported that they noticed a decrease in activity since yesterday. They sought care with their PCP and wanted to provide a urine sample but they advised him to send the patient to the ER for possible dehydration. Family also reported that she has been having confusion and forgetfulness for the past few years but it has worsened in the last few days, as well as urinary incontinence. Denied chest pain, palpitation, shortness of breath, abdominal pain, recent trauma, recent fall, LOC, diarrhea, nausea, vomiting, dysuria, fever, chills, focal weakness, changes in speech, or changes in vision. On admission: Vitals: Temp 98.1 F, pulse rate 77, RR 18, BP 184/87, O2 saturation 97% on room air Labs: WBC 9.4, hemoglobin 15.4, MCV 83.4, platelet count 280,000, sodium 137, potassium 3.6, bicarb 23, BUN 15, creatinine 0.5, glucose 101, lactic acid 1.1, calcium 9.2, phosphorus 4.3, magnesium 1.6, troponin 0.02, proBNP 2230, TSH 3.3. Liver enzymes within normal limits. Albumin 4.3. Urinalysis showed +2 ketones, negative glucose, negative blood, negative nitrates, negative leukocyte esterase. Imaging: Brain CT showed no acute intracranial process. Chest x-ray showed noted a posterior infiltrate. EKG showed sinus bradycardia with a rate of 46, left axis deviation, no ST-T changes, poor R wave progression, QTc 423 MS 08/17/2024 patient seen and examined at bedside. No acute events overnight. Patient still feeling weak but mentioned they feel better. SBP 150-170s overnight Labs: Sodium 136, potassium 3.4, chloride 101, bicarb 21, BUN 12, creatinine 0.5, glucose 80, calcium 9.2 Imaging; Echocardiogram showed LVEF 55 to 55% mild to moderate mitral and aortic regurgitation, mild tricuspid regurgitation no evidence of pulmonary hypertension Review of systems: Pertinent positives and negatives as discussed in HPI, a complete review of systems was performed and all other systems are negative. Social history: Tobacco: former smoker. Quit 40 years ago. Alcohol: a glass of wine a day Recreational drugs: none Travel: none Physical examination: Vital signs reviewed General: non toxic, no distress, appears at stated age, room air, frail and thin appearing Derm: no unusual rashes/lesions, warm Head: atraumatic, normocephalic, symmetric Eyes: EOMI, anicteric sclera, pupils equal round reactive to light ENT: Nose and ears atraumatic Neck: No cervical lymphadenopathy, trachea midline, supple Mouth: no lip lesion, mucus membranes moist Cardiovascular: S1S2 reg, no murmur Lungs: CTA bilateral, no rhonchi, no rales, no accessory muscle use Abdominal: soft, nondistended, nontender to palpation, no guarding Ext: muscle strength 3 out of 5 in distal lower extremities, 4/5 in distal upper extremities, rest of extremities 5/5 grossly, no gross muscle atrophy, no cont ractures, positive dorsalis pedis pulse bilateral, no edema Neuro: CN II-XI grossly intact, no gross focal neuro deficits Psych: Alert and oriented x 3, appropriate affect and mood Assessment/Plan: The patient is admitted with an anticipated greater than 2 midnight stay for evaluation of acute encephalopathy Active: #. Acute encephalopathy, likely secondary to hypoperfusion, rule out other c auses #. Known history of sick sinus syndrome Hemoglobin elevated. Urinalysis shows only positive ketones Imaging showed no acute process ongoing EKG showed sinus bradycardia with a rate of 46, left axis deviation, no ST-T changes, poor R wave progression, QTc 423 MS. Has known history of bradycardia on event monitor report in 2018 Switch IVF to LR 60 cc/h Cardiac monitoring Consult cardiology Consult PT/OT Fall precautions #. Hypertensive urgency, improved Blood pressure 184/87 on admission Continue to monitor BP. Goal SBP 150s On home lisinopril 40 mg p.o. daily. And hydralazine 50 mg p.o. 3 times daily Amlodipine 5 mg p.o. twice daily initiated by cardiology #. Hypokalemia, improved Potassium 3.5 today Chronic Conditions: #. Atrial fibrillation #. CAD #. History of CVA/TIA #. GERD #. Hyperlipidemia #. Hypertension #. Osteoarthritis #. Hypothyroidism #. Anxiety Continue home Lipitor, Synthroid 50 mcg, lisinopril 40 mg, hydralazine 50 mg p.o. 3 times daily DVT ppx: Lovenox 40 mg subcu daily CODE STATUS: Full Discussed with: patient and family Anticipated discharge place: pending clinical course Tali Gallagher MD PGY-1 Internal Medicine Dictation was produced using [employer] dictation software. please excuse any grammatical, word or spelling errors. Attestation: I have seen and examined this patient with my resident, assessment and plan discussed with the resident, agree with assessment and plan as written above. Dr. Jones Objective - Vital Signs Vital signs: Vital Signs Temp 98.1 F 08/16/24 07:34 Pulse 66 08/17/24 07:00 Resp 16 08/17/24 07:00 BP 175/69 08/17/24 07:00 Pulse Ox 96 08/17/24 07:00 FiO2 - Labs CBC & Chem 7: 08/16/24 03:57 08/17/24 10:52 Labs: Abnormal Lab Results - Last 24 Hours (Table) 08/17/24 Range/Units 05:33 Sodium 136 L (137-145) mmol/L Potassium 3.4 L (3.5-5.1) mmol/L Carbon Dioxide 21 L (22-30) mmol/L Creatinine 0.51 L (0.52-1.04) mg/dL
[2024-08-17] MEDS: LACTATED RINGERS 1,000 ML IV SCH (16:20)
[2024-08-18 07:19] LABS: African American GFR (CKD) 89 (>60 ml/min/1.73 sqM); Anion Gap 13 mmol/L; Blood Urea Nitrogen 17 mg/dL (7-17); Calcium 9.7 mg/dL (8.4-10.2); Carbon Dioxide 21 mmol/L (22-30); Chloride 100 mmol/L (98-107); Glucose 108 mg/dL (74-99); Non-African American GFR(CKD) 78 (>60 ml/min/1.73 sqM); Sodium 134 mmol/L (137-145)
--- NOTE | 2024-08-18 17:04 | P.PN ---
Subjective Progress Note Date: 08/18/24 Patient is a 89-year-old female with atrial fibrillation (not on anticoagulation), CAD, history of sick sinus syndrome, history of CVA/TIA, GERD, hyperlipidemia, hypertension, osteoarthritis, hypothyroidism, anxiety here for altered mental status. Patient is a poor historian and majority of history was taken from family at bedside. Family reported that patient has been taking care of herself very well for the week and has not been eating or drinking well. Per patient, she forgets to eat and she does not feel hungry or thirsty. Usually, patient sits and sleeps on a chair and does not ambulate on her own. She is not able to perform her own ADLs. Family reported that they noticed a decrease in activity since yesterday. They sought care with their PCP and wanted to provide a urine sample but they advised him to send the patient to the ER for possible dehydration. Family also reported that she has been having confusion and forgetfulness for the past few years but it has worsened in the last few days, as well as urinary incontinence. Denied chest pain, palpitation, shortness of breath, abdominal pain, recent trauma, recent fall, LOC, diarrhea, nausea, vomiting, dysuria, fever, chills, focal weakness, changes in speech, or changes in vision. On admission: Vitals: Temp 98.1 F, pulse rate 77, RR 18, BP 184/87, O2 saturation 97% on room air Labs: WBC 9.4, hemoglobin 15.4, MCV 83.4, platelet count 280,000, sodium 137, potassium 3.6, bicarb 23, BUN 15, creatinine 0.5, glucose 101, lactic acid 1.1, calcium 9.2, phosphorus 4.3, magnesium 1.6, troponin 0.02, proBNP 2230, TSH 3.3. Liver enzymes within normal limits. Albumin 4.3. Urinalysis showed +2 ketones, negative glucose, negative blood, negative nitrates, negative leukocyte esterase. Imaging: Brain CT showed no acute intracranial process. Chest x-ray showed noted a posterior infiltrate. EKG showed sinus bradycardia with a rate of 46, left axis deviation, no ST-T changes, poor R wave progression, QTc 423 MS 08/17/2024 patient seen and examined at bedside. No acute events overnight. Patient still feeling weak but mentioned they feel better. SBP 150-170s overnight Labs: Sodium 136, potassium 3.4, chloride 101, bicarb 21, BUN 12, creatinine 0.5, glucose 80, calcium 9.2 Imaging; Echocardiogram showed LVEF 55 to 55% mild to moderate mitral and aortic regurgitation, mild tricuspid regurgitation no evidence of pulmonary hypertension 08/18/2024 patient seen and examined at bedside. No acute events overnight. SBP still runs from 150s to 170s. Labs: Sodium 134, potassium 4, bicarb 21, BUN 17, creatinine 0.6, glucose 108, calcium 9.7 Review of systems: Pertinent positives and negatives as discussed in HPI, a complete review of systems was performed and all other systems are negative. Social history: Tobacco: former smoker. Quit 40 years ago. Alcohol: a glass of wine a day Recreational drugs: none Travel: none Physical examination: Vital signs reviewed General: non toxic, no distress, appears at stated age, room air, frail and thin appearing Derm: no unusual rashes/lesions, warm Head: atraumatic, normocephalic, symmetric Eyes: EOMI, anicteric sclera, pupils equal round reactive to light ENT: Nose and ears atraumatic Neck: No cervical lymphadenopathy, trachea midline, supple Mouth: no lip lesion, mucus membranes moist Cardiovascular: S1S2 reg, no murmur Lungs: CTA bilateral, no rhonchi, no rales, no accessory muscle use Abdominal: soft, nondistended, nontender to palpation, no guarding Ext: muscle strength 3 out of 5 in distal lower extremities, 4/5 in distal upper extremities, rest of extremities 5/5 grossly, no gross muscle atrophy, no c ontractures, positive dorsalis pedis pulse bilateral, no edema Neuro: CN II-XI grossly intact, no gross focal neuro deficits Psych: Alert and oriented x 3, appropriate affect and mood Assessment/Plan: The patient is admitted with an anticipated greater than 2 midnight stay for evaluation of acute encephalopathy Active: #. Acute encephalopathy, likely secondary to hypoperfusion, rule out other causes #. Known history of sick sinus syndrome Hemoglobin elevated. Urinalysis shows only positive ketones Imaging showed no acute process ongoing EKG showed sinus bradycardia with a rate of 46. Patient has been hemodynamically stable. IV fluids discontinued Cardiac monitoring Consult cardiology. No intervention recommended at this time. Have signed off. Consult PT/OT. Recommended NELSON on discharge. SW/CM working on discharge needs. Fall precautions #. Hypertensive urgency, improved Blood pressure 184/87 on admission. SPB ranges from 150-170 Continue to monitor BP. Goal SBP 150s On home lisinopril 40 mg p.o. daily. And hydralazine 50 mg p.o. 3 times daily Amlodipine 5 mg p.o. twice daily initiated by cardiology #. Hypokalemia, improved Potassium 3.5 today Chronic Conditions: #. Atrial fibrillation #. CAD #. History of CVA/TIA #. GERD #. Hyperlipidemia #. Hypertension #. Osteoarthritis #. Hypothyroidism #. Anxiety Continue home Lipitor, Synthroid 50 mcg, lisinopril 40 mg, hydralazine 50 mg p.o. 3 times daily DVT ppx: Lovenox 40 mg subcu daily CODE STATUS: Full Discussed with: patient and family Anticipated discharge place: pending clinical course Tali Gallagher MD PGY-1 Internal Medicine Dictation was produced using [employer] dictation software. please excuse any grammatical, word or spelling errors. Attestation: I have seen and examined this patient with my resident, assessment and plan discussed with the resident, agree with assessment and plan as written above. Dr. Jones Objective - Vital Signs Vital signs: Vital Signs Temp 98.1 F 08/18/24 03:34 Pulse 54 L 08/18/24 03:34 Resp 18 08/18/24 03:34 BP 173/75 08/18/24 03:34 Pulse Ox 97 08/18/24 03:34 FiO2 Intake & Output 08/17/24 08/18/24 08/18/24 18:59 06:59 18:59 Weight 53 kg Other: Voiding Method External Catheter # Voids 0 - Labs CBC & Chem 7: 08/16/24 03:57 08/18/24 06:13 Labs: Abnormal Lab Results - Last 24 Hours (Table) 08/17/24 08/18/24 Range/Units 10:52 06:13 Sodium 136 L 134 L (137-145) mmol/L Carbon Dioxide 20 L 21 L (22-30) mmol/L Creatinine 0.51 L (0.52-1.04) mg/dL Glucose 108 H (74-99) mg/dL
[2024-08-19 09:27] VITALS: TEMP 97.5
[2024-08-19 11:41] VITALS: RESP 16
--- NOTE | 2024-08-19 14:25 | P.DS ---
Providers Date of admission: 08/15/24 23:06 Attending physician: Brendan Mendez Primary care physician: Lucian Sterling Hospital Course: Hospital Course: Patient is a 89-year-old female with atrial fibrillation (not on anticoagulation), CAD, history of sick sinus syndrome, history of CVA/TIA, GERD, hyperlipidemia, hypertension, osteoarthritis, hypothyroidism, anxiety here for altered mental status. Patient is a poor historian and majority of history was taken from family at bedside. Family reported that patient has been taking care of herself very well for the week and has not been eating or drinking well. Per patient, she forgets to eat and she does not feel hungry or thirsty. Usually, patient sits and sleeps on a chair and does not ambulate on her own. She is not able to perform her own ADLs. Family reported that they noticed a decrease in activity since yesterday. They sought care with their PCP and wanted to provide a urine sample but they advised him to send the patient to the ER for possible dehydration. Family also reported that she has been having confusion and forgetfulness for the past few years but it has worsened in the last few days, as well as urinary incontinence. Denied chest pain, palpitation, shortness of breath, abdominal pain, recent trauma, recent fall, LOC, diarrhea, nausea, vomiting, dysuria, fever, chills, focal weakness, changes in speech, or changes in vision. On admission: Vitals: Temp 98.1 F, pulse rate 77, RR 18, BP 184/87, O2 saturation 97% on room air Labs: WBC 9.4, hemoglobin 15.4, MCV 83.4, platelet count 280,000, sodium 137, potassium 3.6, bicarb 23, BUN 15, creatinine 0.5, glucose 101, lactic acid 1.1, calcium 9.2, phosphorus 4.3, magnesium 1.6, troponin 0.02, proBNP 2230, TSH 3.3. Liver enzymes within normal limits. Albumin 4.3. Urinalysis showed +2 ketones, negative glucose, negative blood, negative nitrates, negative leukocyte esterase. Imaging: Brain CT showed no acute intracranial process. Chest x-ray showed noted a posterior infiltrate. EKG showed sinus bradycardia with a rate of 46, left axis deviation, no ST-T changes, poor R wave progression, QTc 423 MS Patient was evaluated for acute encephalopathy due to hypotension, possible dementia and debility. IV fluids, cardiac monitoring, PT OT and fall precautions were ordered. Cardiology consulted due to sinus bradycardia possible source of acute encephalopathy. Echocardiogram ordered showed LVEF 55 to 55% mild to moderate mitral and aortic regurgitation, mild tricuspid regurgitation no evidence of pulmonary hypertension Was found to have hypertensive urgency on admission and blood pressure control was achieved. Patient developed hypokalemia during admission and potassium was repleted and stabilized. Patient symptoms improved throughout hospital stay however she is still unable to perform her own ADLs and still forgets to feed and drink for herself. PT OT recommended NELSON on discharge and patient and family agreeable to plan. Patient is cleared for discharge today to [facility]. Recommended adjustments to blood pressure medications of amlodipine 5 mg twice daily and lisinopril 20 mg twice daily. Recommended neurology consult on follow-up for possible dementia. Final Diagnosis: #. Acute encephalopathy, likely secondary to hypoperfusion, CVA, neurologic and cardiac causes ruled out #. Known history of sick sinus syndrome #. Possible dementia #. Debility #. Hypertensive urgency, improved #. Hypokalemia, improved #. Atrial fibrillation #. CAD #. History of CVA/TIA #. GERD #. Hyperlipidemia #. Hypertension #. Osteoarthritis #. Hypothyroidism #. Anxiety Physical examination: Vital signs reviewed General: non toxic, no distress, appears at stated age, room air, frail and thin appearing Derm: no unusual rashes/lesions, warm Head: atraumatic, normocephalic, symmetric Eyes: EOMI, anicteric sclera, pupils equal round reactive to light ENT: Nose and ears atraumatic Neck: No cervical lymphadenopathy, trachea midline, supple Mouth: no lip lesion, mucus membranes moist Cardiovascular: S1S2 reg, no murmur Lungs: CTA bilateral, no rhonchi, no rales, no accessory muscle use Abdominal: soft, nondistended, nontender to palpation, no guarding Ext: muscle strength 4/5 in distal lower and upper extremities, rest of extremities 5/5 grossly, no gross muscle atrophy, no contractures, positive dorsalis pedis pulse bilateral, no edema Neuro: CN II-XI grossly intact, no gross focal neuro deficits Psych: Alert and oriented x 3, appropriate affect and mood Attestation: I have seen and examined this patient with my resident, assessment and plan discussed with the resident, agree with assessment and plan as written above. Dr. Jones Patient Condition at Discharge: Stable Plan - Discharge Summary Discharge Rx Participant: No New Discharge Prescriptions: New amLODIPine [Norvasc] 5 mg PO BID #60 tab lisinopriL [Zestril] 20 mg PO BID #60 tab Continue Levothyroxine Sodium [Synthroid] 50 mcg PO DAILY hydrALAZINE HCL [Apresoline] 50 mg PO TID PRN PRN Reason: BP >160/90 Acetaminophen [Tylenol 8 Hour] 650 mg PO Q8H PRN PRN Reason: Pain Aspirin EC [Ecotrin Low Dose] 81 mg PO DAILY Atorvastatin [Lipitor] 10 mg PO HS Donepezil [Aricept] 10 mg PO HS Discontinued amLODIPine BESYLATE/BENAZEPRIL [Lotrel 10-40 mg Capsule] 1 cap PO DAILY Discharge Medication List Levothyroxine Sodium [Synthroid] 50 mcg PO DAILY 04/09/14 [History] Aspirin EC [Ecotrin Low Dose] 81 mg PO DAILY 07/06/22 [History] hydrALAZINE HCL [Apresoline] 50 mg PO TID PRN 01/01/23 [History] Acetaminophen [Tylenol 8 Hour] 650 mg PO Q8H PRN 08/16/24 [History] Atorvastatin [Lipitor] 10 mg PO HS 08/16/24 [History] Donepezil [Aricept] 10 mg PO HS 08/16/24 [History] amLODIPine [Norvasc] 5 mg PO BID #60 tab 08/19/24 [Rx] lisinopriL [Zestril] 20 mg PO BID #60 tab 08/19/24 [Rx] Follow up Appointment(s)/Referral(s): Lucian Sterling MD [Primary Care Provider] - 1-2 days Buddy Oshea DO [STAFF PHYSICIAN] - 1 Week Discharge Disposition: TRANSFER TO SNF/ECF
[2024-08-19 15:59] VITALS: BP 171/65; PULSE 60
--- NOTE | 2024-08-19 21:42 | CDI ---
Documentation Clarification Form Date: 08/19/2024 09:18:42 PM From: America George RN, CCDS Phone: [phone] Admit Date: 08/15/2024 11:06:00 PM Patient Name: Nina Hamlin Visit Number: [id number] Discharge Date: 08/19/2024 04:40:00 PM ATTENTION: The Clinical Documentation Specialists (CDI) and [facility] Coding Staff appreciate your assistance in clarifying documentation. Please respond to the clarification below the line at the bottom and electronically sign. The CDI & [facility] Coding staff will review the response and follow-up if needed. Please note: Queries are made part of the Legal Health Record. If you have any questions, please contact the author of this message via ITS. DoctorHugo Jones Your patient has the documented symptom of weakness, debility. Additional clarification regarding the etiology/cause of this symptom is requested. History/Risk Factors: CVA/TIA, Hypertension, Osteoarthritis (OA) Clinical Indicators 89-year-old female with weakness. Family thinks she has not been taking care of herself very well for the last few days not eating or drinking well noticed decreased activity. 08/18 Physical eval: She is normally independent but does own walker and cane, currently oriented x 1-2 follow commands but slow to respond, does not know why she is here and offers no complaints. Transfer ability Moderate assist Ambulation Ability: 0 No ability demonstrated. Poor Balance, Decreased Strength Poor Cognition. Will benefit from NELSON 08/15 CXR: Posterior infiltrate. Correlate for pneumonia. 08/16 CT Brain: No acute intracranial hemorrhage, midline shift, or mass effect. Treatment: Occupational Therapy Evaluation Physical Therapy Evaluation Turn and reposition Assist with ADL's Is there a corresponding diagnosis/etiology for this symptom of weakness? [x ] Age related physical debility [ ] Age related cognitive decline [ ] Alzheimers dementia [ ] Unable to determine [ ] Other, please specify (Template Last Reviewed: April 2020) MTDD
--- NOTE | 2024-08-25 14:57 | CDI ---
Documentation Clarification Form Date: 08-25-2024 From: BEENA Pina Admit Date: 08/15/2024 11:06:00 PM Patient Name: Nina Hamlin Visit Number: [id number] Discharge Date: 08/19/2024 04:40:00 PM ATTENTION: The Clinical Documentation Specialists (CDI) and [facility] Coding Staff appreciate your assistance in clarifying documentation. Please respond to the clarification below the line at the bottom and electronically sign. The CDI & [facility] Coding staff will review the response and follow-up if needed. Please note: Queries are made part of the Legal Health Record. If you have any questions, please contact the author of this message via ITS. Doctor/Provider: Lottie Jones There is documentation of hypoperfusion. Additional clarification is requested. History/Risk Factors: Patient is admitted for altered mental status. Acute encephalopathy, likely secondary to hypoperfusion; CVA, neurologic and cardiac causes ruled out. Was found to have hypertensive urgency on admission and blood pressure control was achieved. Clinical Indicators: Confusion, hallucinating and weakness. Treatment: 0.9 normal saline 60 cc/h, cardiac monitoring. labs, potassium replaced Can you please clarify the etiology of the hypoperfusion? [ ] hypokalemia [ ] dehydration [ ] hypertensive urgency [ ] Other, please specify [x ] Unable to determine (Template Last Revised: May 2020) MTDD
== END 2024-08-19 16:40 | DRG 884 ==
LOC: EC 20:14 → 6NMEDSUR 23:05 → OBSVTOIN 23:06 → 5NMEDONC 08-16 03:21 → 3SCARD 08-16 05:38
PROVIDERS: ADMIT Hospitalist; ATTEND Hospitalist
DX: R54 Age-related physical debility (principal); G93.49 Other encephalopathy; I16.0 Hypertensive urgency; I49.5 Sick sinus syndrome; E86.0 Dehydration; I48.91 Unspecified atrial fibrillation; E03.9 Hypothyroidism, unspecified; N39.0 Urinary tract infection, site not specified; I10 Essential (primary) hypertension; E78.5 Hyperlipidemia, unspecified; E87.6 Hypokalemia; I25.10 Atherosclerotic heart disease of native coronary artery without angina pectoris; M19.90 Unspecified osteoarthritis, unspecified site; K21.9 Gastro-esophageal reflux disease without esophagitis; Z96.1 Presence of intraocular lens; Z96.643 Presence of artificial hip joint, bilateral; R00.1 Bradycardia, unspecified; R32 Unspecified urinary incontinence; Z79.82 Long term (current) use of aspirin; Z79.890 Hormone replacement therapy; Z79.899 Other long term (current) drug therapy; Z87.891 Personal history of nicotine dependence; Z86.73 Personal history of transient ischemic attack (TIA), and cerebral infarction without residual deficits
CPT/HCPCS: 36415; 70450; 71046; 80048; 80053; 81003; 83605; 83735; 83880; 84100; 84443; 84484; 85025; 85610; 85730; 93005; 93306; 96361; 96365; 96366; 96372; 99285